=== PATIENT | female | born 1945 | race Caucasian/White ===

== ENCOUNTER → 2017-11-09 14:38 | Outpatient (CLI) | payer MEDICARE, OTHER, SELFPAY ==
--- NOTE | 2017-11-09 | DI.MG.S_ITS ---
UNILATERAL RIGHT DIGITAL DIAGNOSTIC MAMMOGRAM 3D/2D: 11/09/2017 CLINICAL: History of Breast cancer. Comparison is made to exams dated: 10/15/2017 mammogram, 10/15/2016 mammogram, and 09/10/2015 mammogram - [facility]. There are scattered fibroglandular elements in the right breast. There are benign vascular calcifications in the right breast. No significant masses, calcifications, or other findings are seen in the breast. There has been no significant interval change. IMPRESSION: BENIGN There is no mammographic evidence of malignancy. A 1 year screening mammogram is recommended. This exam was interpreted at Station ID: [id number]. NOTE: For mammograms, a report in lay terms will be sent to the patient. Approximately 15% of breast malignancies will not be visualized mammographically. In the management of a palpable breast mass, a negative mammogram must not discourage biopsy of a clinically suspicious lesion. Electronically Signed By: Dot gregory/bimal:11/09/2017 15:06:15 letter sent: Normal Exam ACR BI-RADS Category 2: Benign Finding(s) [id number]
== END ==
PROVIDERS: Family Provider Family Medicine; PCP Family Medicine; Visit Provider Family Medicine
DX: R92.8 Other abnormal and inconclusive findings on diagnostic imaging of breast (principal); Z85.3 Personal history of malignant neoplasm of breast
CPT/HCPCS: G0279

== ENCOUNTER 2018-06-01 05:42 | Inpatient (IN) | payer MEDICARE, SELFPAY ==
[2018-06-01] VITALS (20 sets, daily range): BP systolic 116–168; BP diastolic 55–86; PULSE 78–96; RESP 8–22; TEMP 36.1–37.3; O2SAT 95–100; BMI 19.1; BMI 19.9
--- NOTE | 2018-06-01 | DI.RAD.S_ITS ---
PROCEDURE: XR HIP W PEL IF DONE LT 2V INDICATIONS: LEFT HIP ORIF TECHNIQUE: 2 views of the hip were acquired. COMPARISON: [facility], CR, XR HIP W PEL IF DONE LT 2V, 06/01/2018, 6:04. FINDINGS: Bones: Postsurgical changes compatible with ORIF of intertrochanteric. Dynamic compression screw sideplate is in place. There is anatomic alignment of fracture fragments. Soft tissues: No suspicious soft tissue calcifications or masses. IMPRESSION: Anatomic alignment following ORIF of left hip fracture. Dictated by: Kia Mccain MD, PhD on 06/01/2018 at 18:25 Approved by: Kia Mccain MD, PhD on 06/01/2018 at 18:26
--- NOTE | 2018-06-01 05:58 | DI.RAD.S_ITS ---
PROCEDURE: XR CHEST 1V INDICATIONS: trauma,fall, left wrist and hip pain TECHNIQUE: One view of the chest was acquired. COMPARISON: [facility], , CHEST 2 VIEW, 02/04/2016, 16:45. FINDINGS: Surgical changes and devices: None. Lungs and pleura: No pleural effusions or pneumothorax. Increased pulmonary vascularity is present. Mediastinum: Mediastinal contours appear normal. Heart size is normal. Bones and chest wall: No suspicious bony lesions. Overlying soft tissues appear unremarkable. IMPRESSION: Mild increased pulmonary vascularity suggestive of edema. Dictated by: Eunice Schroeder M.D. on 06/01/2018 at 8:56 Approved by: Eunice Schroeder M.D. on 06/01/2018 at 8:57
--- NOTE | 2018-06-01 05:58 | DI.RAD.S_ITS ---
PROCEDURE: XR HIP W PEL IF DONE LT 2V INDICATIONS: left hip pain, fall TECHNIQUE: AP pelvis with lateral view(s) of the left hip(s). COMPARISON: None. FINDINGS: Bones: There is a mildly displaced comminuted left intertrochanteric femoral fracture. There is no dislocation at the acetabulum. There is a mild compartment of impaction. Soft tissues: The visualized bowel gas pattern is normal. No suspicious soft tissue calcifications. IMPRESSION: Mildly displaced intertrochanteric left femoral fracture. Dictated by: Eunice Schroeder M.D. on 06/01/2018 at 8:57 Approved by: Eunice Schroeder M.D. on 06/01/2018 at 8:58
--- NOTE | 2018-06-01 06:01 | ED_ITS ---
HPI - Fall General Chief Complaint: Fall Stated Complaint: GLF left hip pain Time Seen by Provider: 06/01/18 05:50 Source: patient and family () Mode of arrival: EMS Limitations: no limitations History of Present Illness HPI Narrative: This is a 73-year-old female comes to the emergency department with complaint of left hip pain and wrist pain. Patient got up tonight to walk to the bathroom. She states she has a ?internal tremor? Um and is often very unsteady on her feet. Her states that she has seen specialty doctors for this but has no specific diagnosis. Patient fell on carpeted floor. She denies hitting her head, she denies any neck or back pain. She has pain in her wrist although she states that she does not think it is broken. She also has pain in the left hip with shortening and any movement is very uncomfortable. Patient denies any chest pain or shortness of breath. She denies any nausea or vomiting. No new GI or urinary symptoms. Patient is not on any blood thinners currently. She has a history of hypertension, she had a lumpectomy in her breast and afterwards had what sounds like a recurrent abscess or cyst formation that was drained regularly but they no longer drained she has a large hard lump in that area. Related Data Home Medications Medication Instructions Recorded Confirmed flaxseed oil 2,000 mg PO DAILY #0 07/30/11 06/01/18 bupropion HCl XL 150 mg 24 hr 300 mg PO 0800 90 Days tab 03/18/18 06/01/18 tablet, extended release Calcium 1 tab PO DAILY 06/01/18 06/01/18 Disabled Parking Permit 1 ea MISCELLANEOUS DIRECTED 06/01/18 06/01/18 Vitamin B 100 mg PO DAILY 06/01/18 06/01/18 ascorbic acid (vitamin C) [Vitamin 500 mg PO DAILY 06/01/18 06/01/18 C] cholecalciferol (vitamin D3) 3,000 unit PO DAILY 06/01/18 06/01/18 [Vitamin D3] cholestyramine (with sugar) 4 g PO DAILY 06/01/18 06/01/18 [Questran] clonidine HCl 0.1 mg PO DAILY 06/01/18 06/01/18 furosemide 40 mg PO DAILY 06/01/18 06/01/18 glucosamine sulfate 1,000 mg PO DAILY 06/01/18 06/01/18 lorazepam 0.5 mg PO QID 06/01/18 06/01/18 multivitamin 1 tab PO DAILY 06/01/18 06/01/18 potassium chloride 10 meq PO DAILY 06/01/18 06/01/18 pramipexole 0.375 mg PO TID 06/01/18 06/01/18 vitamin E 400 unit PO DAILY 06/01/18 06/01/18 Previous Rx's Medication Instructions Recorded levothyroxine 100 mcg tablet 100 mcg PO QDAY #90 tab 03/23/18 Allergies Allergy/AdvReac Type Severity Reaction Status Date / Time adhesive Allergy Mild BLISTERING Verified 06/01/18 10:42 codeine [CODEINE] Allergy Mild CRY AND Verified 06/01/18 10:42 SLEEP SSRI Allergy Mild tremors, Uncoded 04/22/18 13:03 anxiety attacks Review of Systems Review of Systems All systems reviewed & are unremarkable except as noted in HPI and below Constitutional Denies chills, Denies fever(s), Reports frequent falls, Denies lethargy, Denies weakness and Denies other (LOC) ENT Ears, Nose, Mouth, and Throat: Denies neck pain Cardiovascular Denies chest pain, Denies syncope, Denies irregular heart rhythm, Denies lightheadedness, Denies palpitations, Denies dyspnea, Denies dyspnea on exertion and Denies orthopnea Respiratory Denies cough, Denies dyspnea, Denies dyspnea on exertion and Denies wheezing Gastrointestinal Gastrointestinal: Denies abdominal pain, Denies change in bowel habits, Denies diarrhea, Denies nausea and Denies vomiting Genitourinary Denies hematuria, Denies flank pain and Denies urinary urgency Musculoskeletal Denies back pain, Reports arthralgias (left hip and left wrist), Reports limited range of motion (hip), Denies neck pain, Denies numbness and Denies tingling Neurologic Denies syncope, Reports frequent falls, Denies focal weakness, Denies numbness, Denies tingling, Reports tremor(s) (chronic internal tremor) and Denies weakness Endocrine Denies palpitations Allergic/Immunologic Denies wheezing Exam Narrative Exam Narrative: GEN: Patient appears in moderate distress. HEAD: No evidence of trauma, no raccoon/Coleman sign. NECK: Nontender, painless range of motion, trachea midline Negative Nexus criteria, there is no mid line tenderness, distracting injury, altered mental status, neuro deficit, recent EtOH. EYES: PERRLA, EOMI ENT: External inspection normal, trachea is midline, TM's are normal no hemotypanum, Nares are clear, no septal hematoma, no dental or oral injury, airway is normal and with normal occlusion, No bony tenderness RESP: Chest is nontender and has symmetric movement, no ecchymosis, breath sounds are normal no crackles, wheezes or rales CVS: Heart sounds are normal, no murmur noted, No JVD. ABG/GI: Nontender, soft, normal bowel sounds, no distention, no organomegaly, pelvic rock is negative. NEURO: Oriented AOx3, neuro is grossly intact, sensation and motor is normal all 4 extremities moving, cranial nerves II through XII are intact, GCS is 15 PSYCH: Normal mood and affect SKIN: Intact, warm and dry, no crepitus and without decubitus BACK: No CVA tenderness, no vertebral tenderness, no step-off's, no crepitus EXT: Atraumatic, right hip is nontender, left hip is painful, patient left leg is internally rotated and shortened, 2+ pulse left food, normal sensation. no pedal edema, normal color and temperature, normal range of motion of extremities with normal tendon exam, 2+ pulses in all four extremities Initial Vital Signs Initial Vital Signs: Vital Signs Temperature 98.4 F 06/01/18 05:49 Pulse Rate 84 06/01/18 05:49 Respiratory Rate 16 06/01/18 05:49 Blood Pressure 127/59 L 06/01/18 05:49 Pulse Oximetry 98 06/01/18 05:49 [facility] Medical History Essential tremor (Acute) Breast cancer (Chronic) Depression (Chronic) Hypertension (Chronic) Hypothyroidism (Chronic) Surgical History Ventral hernia (Resolved) Status post cholecystectomy Status post colectomy Status post dilation and curettage Status post rotator cuff repair Family History Father No problems noted. Mother No problems noted. Social History household members: spouse Smoking Status: Current every day smoker Scores GCS Platter coma scale eye opening: Spontaneous Platter coma scale verbal response: Orientated [place] coma scale motor response: Obey commands [place] coma scale total score: 15 Course Orders Ordered: Acetaminophen (Tylenol) 975 mg PO TID [facility] Last Admin: 06/03/18 09:01 Dose: 975 mg Admin: 06/02/18 20:08 Dose: 975 mg Admin: 06/02/18 14:55 Dose: 975 mg Admin: 06/02/18 09:09 Dose: 975 mg Admin: 06/01/18 20:06 Dose: 975 mg Bupropion HCl (Wellbutrin Xl) 300 mg PO 0800 [facility] Last Admin: 06/03/18 09:02 Dose: 300 mg Admin: 06/02/18 05:19 Dose: 300 mg Docusate Sodium (Colace) 100 mg PO BID [facility] Last Admin: 06/03/18 09:02 Dose: 100 mg Admin: 06/02/18 20:08 Dose: 100 mg Admin: 06/02/18 09:06 Dose: 100 mg Admin: 06/01/18 20:08 Dose: 100 mg Admin: 06/01/18 10:02 Dose: Enoxaparin Sodium (Lovenox) 40 mg SUBCUT DAILY [facility] Last Admin: 06/03/18 09:01 Dose: 40 mg Admin: 06/02/18 09:05 Dose: 40 mg Levothyroxine Sodium (Synthroid) 100 mcg PO 0600 [facility] Last Admin: 06/03/18 05:54 Dose: 100 mcg Admin: 06/02/18 05:17 Dose: 100 mcg Admin: 06/01/18 10:02 Dose: Lorazepam (Ativan) 0.5 mg PO TID [facility] Last Admin: 06/03/18 09:04 Dose: 0.5 mg Admin: 06/02/18 20:09 Dose: 0.5 mg Admin: 06/02/18 14:56 Dose: 0.5 mg Admin: 06/02/18 09:05 Dose: 0.5 mg Lorazepam (Ativan) 0.5 mg PO DAILY PRN PRN Reason: anxiety Naloxone HCl (Narcan) 0.2 mg IV Q2MIN PRN PRN Reason: Opiate Reversal Ondansetron HCl (Zofran) 4 mg IV Q8HR PRN PRN Reason: Nausea And Vomiting Oxycodone HCl (Percolone) 5 mg PO Q3HR PRN PRN Reason: Pain, Moderate (4-6) Last Admin: 06/03/18 09:06 Dose: 5 mg Admin: 06/03/18 00:13 Dose: 5 mg Admin: 06/02/18 20:09 Dose: 5 mg Admin: 06/02/18 16:01 Dose: 5 mg Admin: 06/02/18 12:46 Dose: 5 mg Admin: 06/02/18 09:09 Dose: 5 mg Admin: 06/02/18 04:37 Dose: 5 mg Admin: 06/01/18 23:02 Dose: 5 mg Admin: 06/01/18 19:10 Dose: 5 mg Oxycodone HCl (Percolone) 10 mg PO Q3HR PRN PRN Reason: Pain, Severe (7-10) Last Admin: 06/03/18 05:52 Dose: 10 mg Polyethylene Glycol (Miralax) 17 gm PO DAILY PRN PRN Reason: Constipation Pramipexole Dihydrochloride (Mirapex) 0.375 mg PO TID [facility] Last Admin: 06/03/18 09:02 Dose: 0.375 mg Admin: 06/02/18 20:08 Dose: 0.375 mg Admin: 06/02/18 14:56 Dose: 0.375 mg Admin: 06/02/18 09:05 Dose: 0.375 mg Admin: 06/01/18 20:06 Dose: 0.375 mg Admin: 06/01/18 14:55 Dose: Sodium Chloride (Normal Saline 0.9% Flush) 10 ml IV PRN PRN PRN Reason: Flush Sodium Chloride (Normal Saline 0.9% Flush) 10 ml IV BID TRAVIS Discontinued Medications Acetaminophen (Tylenol) 650 mg PO Q6HR PRN PRN Reason: As Needed for Fever/Mild Pain Hydrocodone Bitart/Acetaminophen ([place] 5/325) 2 tab PO Q4HR PRN PRN Reason: Pain, Severe (7-10) Bupivacaine HCl/Epinephrine Bitart (Sensorcaine 0.5% W/ Epi (Pf)) 30 ml INJ NOW ONE Stop: 06/01/18 18:05 Last Admin: 06/01/18 18:05 Dose: 20 ml Enoxaparin Sodium (Lovenox) 40 mg SUBCUT DAILY [facility] Last Admin: 06/01/18 10:43 Dose: Fentanyl (Sublimaze) 50 mcg IV Q5MIN PRN PRN Reason: Pain, Moderate (4-6) Hydromorphone HCl (Dilaudid) 0.5 mg IV NOW ONE Stop: 06/01/18 05:59 Last Admin: 06/01/18 06:21 Dose: 0.5 mg Hydromorphone HCl (Dilaudid) 0.5 mg IV NOW ONE Stop: 06/01/18 07:28 Last Admin: 06/01/18 07:32 Dose: 0.5 mg Hydromorphone HCl (Dilaudid) 0.5 mg IV Q6HR PRN PRN Reason: Pain, Moderate (4-6) Last Admin: 06/01/18 09:12 Dose: 0.5 mg Hydromorphone HCl (Dilaudid) 0.5 mg IV Q3HR PRN PRN Reason: Pain, Moderate (4-6) Last Admin: 06/01/18 15:34 Dose: 0.5 mg Admin: 06/01/18 12:28 Dose: 0.5 mg Hydromorphone HCl (Dilaudid) 0.25 mg IV Q5MIN PRN PRN Reason: Pain, Mild (1-3) Dextrose/Sodium Chloride (Dextrose 5%-0.45% Ns) 1,000 mls @ 100 mls/hr IV CONT TRAVIS Last Infusion: 06/01/18 16:07 Dose: 0 mls/hr Admin: 06/01/18 09:14 Dose: 100 mls/hr Cefazolin Sodium/Dextrose (Ancef) 1 gm in 50 mls @ 200 mls/hr IV INTRA-OP ONE Stop: 06/01/18 14:25 Last Infusion: 06/01/18 17:35 Dose: 0 mls/hr Admin: 06/01/18 17:30 Dose: 200 mls/hr Lactated Ringer's (Lactated Ringers) 1,000 mls @ 42 mls/hr IV CONT TRAVIS Last Admin: 06/01/18 18:46 Dose: 42 mls/hr Infusion: 06/01/18 18:45 Dose: 0 mls/hr Admin: 06/01/18 17:00 Dose: 42 mls/hr Cefazolin Sodium 1 gm/ Sodium (Chloride) 100 mls @ 200 mls/hr IV NOW ONE Stop: 06/01/18 17:48 Last Admin: 06/01/18 17:55 Dose: Not Given Lactated Ringer's (Lactated Ringers) 1,000 mls @ 125 mls/hr IV CONT TRAVIS Last Infusion: 06/03/18 08:09 Dose: 125 mls/hr Infusion: 06/02/18 05:00 Dose: 0 mls/hr Admin: 06/02/18 04:30 Dose: 125 mls/hr Admin: 06/01/18 19:09 Dose: Cefazolin Sodium/Dextrose (Ancef) 2 gm in 100 mls @ 200 mls/hr IV Q8H [facility] Stop: 06/02/18 10:29 Last Infusion: 06/02/18 10:34 Dose: 0 mls/hr Admin: 06/02/18 09:05 Dose: 200 mls/hr Infusion: 06/02/18 03:10 Dose: 200 mls/hr Admin: 06/02/18 01:59 Dose: 200 mls/hr Lorazepam (Ativan) 0.5 mg PO Q6HR [facility] Last Admin: 06/01/18 12:23 Dose: Lorazepam (Ativan) 0.5 mg PO Q6HR PRN PRN Reason: Anxiety Lorazepam (Ativan) 0.5 mg IV Q6HR PRN PRN Reason: Anxiety Last Admin: 06/02/18 00:10 Dose: 0.5 mg Admin: 06/01/18 12:41 Dose: 0.5 mg Lorazepam (Ativan) 0.5 mg PO Q6HR PRN PRN Reason: Anxiety Last Admin: 06/02/18 05:19 Dose: 0.5 mg Admin: 06/01/18 19:08 Dose: 0.5 mg Metoclopramide HCl (Reglan) 10 mg IV NOW PRN PRN Reason: Nausea And Vomiting Ondansetron HCl (Zofran) 4 mg IV NOW PRN PRN Reason: Nausea And Vomiting Vital Signs - 8 hr 06/03/18 05:30 06/03/18 08:00 Temperature 96.7 F L 98.9 F Pulse Rate 84 90 Respiratory Rate 16 17 Blood Pressure 114/59 L 153/70 H Pulse Oximetry 99 98 MDM - Fall Lab Data Attestation: I reviewed the patient's lab results. Result diagrams: 06/02/18 04:42 06/01/18 06:00 Lab Results 06/01/18 06/01/18 06/01/18 Range/Units 06:00 06:00 06:00 WBC 5.9 (4.5-11.0) X10^3/uL RBC 3.83 L (4.0-5.2) X10^6/uL Hgb 12.8 (12.0-16.0) g/dL Hct 36.8 (36-46) % MCV 96.1 (80-100) fL MCH 33.4 (26-34) PG MCHC 34.8 (30-36) % RDW 11.9 (11.6-14.8) % Plt Count 268 (150-400) X10^3/uL Neut % (Auto) 63.0 (50-75) % Lymph % (Auto) 25.0 (25-40) % [place] % (Auto) 7.9 (3-14) % Eos % (Auto) 3.1 (2-4) % Baso % (Auto) 1.0 (0-2) % Neut # (Auto) 3700 (0226-5451) /uL PT 11.9 (10.1-12.7) SECONDS INR 1.0 (0.9-1.3) APTT 28 (26.4-36.2) SECONDS Sodium 139 (137-145) mmol/L Potassium 4.1 (3.4-5.1) mmol/L Chloride 103 (98-107) mmol/L Carbon Dioxide 26 (22-32) mmol/L BUN 17 (7-17) mg/dL Creatinine 0.60 (0.52-1.04) mg/dL Estimated GFR > 60.0 (>60) mL/min BUN/Creatinine Ratio 28.3 H (6-22) Glucose 96 (80-110) mg/dL Calcium 9.1 (8.4-10.2) mg/dL Total Bilirubin 0.4 (0.2-1.3) mg/dL AST 37 H (14-36) IU/L ALT 31 (9-52) IU/L Alkaline Phosphatase 79 (38-126) U/L Total Protein 6.8 (6.3-8.2) g/dL Albumin 3.8 (3.5-5.0) g/dL Globulin 3.0 (1.7-4.1) g/dL Albumin/Globulin Ratio 1.3 (1.0-2.8) Urine Color Urine Appearance Urine pH (4.5-8.0) Ur Specific [place] (1.000-1.035) Urine Protein (Negative) Urine Glucose (UA) (Normal) g/dL Urine Ketones (NEGATIVE) Urine Occult Blood (Negative) Urine Nitrate (Negative) Urine Bilirubin (NEGATIVE) Urine Urobilinogen (0.2) E.U./dL Ur Leukocyte Esterase (NEGATIVE) Urine RBC (0-5/HPF) Urine WBC (0-5/HPF) Ur Squamous Epith Cells Urine Bacteria (None) Ur Culture Indicated? Micro UA Comment Nasal Screen MRSA (PCR) (Negative) Blood Type Antibody Screen 06/01/18 06/01/18 06/01/18 Range/Units 06:00 09:21 12:28 WBC (4.5-11.0) X10^3/uL RBC (4.0-5.2) X10^6/uL Hgb (12.0-16.0) g/dL Hct (36-46) % MCV (80-100) fL MCH (26-34) PG MCHC (30-36) % RDW (11.6-14.8) % Plt Count (150-400) X10^3/uL Neut % (Auto) (50-75) % Lymph % (Auto) (25-40) % [place] % (Auto) (3-14) % Eos % (Auto) (2-4) % Baso % (Auto) (0-2) % Neut # (Auto) (2830-6019) /uL PT (10.1-12.7) SECONDS INR (0.9-1.3) APTT (26.4-36.2) SECONDS Sodium (137-145) mmol/L Potassium (3.4-5.1) mmol/L Chloride (98-107) mmol/L Carbon Dioxide (22-32) mmol/L BUN (7-17) mg/dL Creatinine (0.52-1.04) mg/dL Estimated GFR (>60) mL/min BUN/Creatinine Ratio (6-22) Glucose (80-110) mg/dL Calcium (8.4-10.2) mg/dL Total Bilirubin (0.2-1.3) mg/dL AST (14-36) IU/L ALT (9-52) IU/L Alkaline Phosphatase (38-126) U/L Total Protein (6.3-8.2) g/dL Albumin (3.5-5.0) g/dL Globulin (1.7-4.1) g/dL Albumin/Globulin Ratio (1.0-2.8) Urine Color Yellow Urine Appearance Clear Urine pH 6.0 (4.5-8.0) Ur Specific [place] 1.020 (1.000-1.035) Urine Protein Negative (Negative) Urine Glucose (UA) Negative (Normal) g/dL Urine Ketones Negative (NEGATIVE) Urine Occult Blood Negative (Negative) Urine Nitrate Negative (Negative) Urine Bilirubin Negative (NEGATIVE) Urine Urobilinogen 0.2 (0.2) E.U./dL Ur Leukocyte Esterase Negative (NEGATIVE) Urine RBC None seen (0-5/HPF) Urine WBC 0-1/hpf (0-5/HPF) Ur Squamous Epith Cells 0-1 /hpf Urine Bacteria None seen (None) Ur Culture Indicated? Cult not indicated Micro UA Comment Not Reportable Nasal Screen MRSA (PCR) Negative for mrsa (Negative) Blood Type A Positive Antibody Screen Negative 06/02/18 Range/Units 04:42 WBC (4.5-11.0) X10^3/uL RBC (4.0-5.2) X10^6/uL Hgb 12.6 (12.0-16.0) g/dL Hct 37.2 (36-46) % MCV (80-100) fL MCH (26-34) PG MCHC (30-36) % RDW (11.6-14.8) % Plt Count (150-400) X10^3/uL Neut % (Auto) (50-75) % Lymph % (Auto) (25-40) % [place] % (Auto) (3-14) % Eos % (Auto) (2-4) % Baso % (Auto) (0-2) % Neut # (Auto) (8066-9312) /uL PT (10.1-12.7) SECONDS INR (0.9-1.3) APTT (26.4-36.2) SECONDS Sodium (137-145) mmol/L Potassium (3.4-5.1) mmol/L Chloride (98-107) mmol/L Carbon Dioxide (22-32) mmol/L BUN (7-17) mg/dL Creatinine (0.52-1.04) mg/dL Estimated GFR (>60) mL/min BUN/Creatinine Ratio (6-22) Glucose (80-110) mg/dL Calcium (8.4-10.2) mg/dL Total Bilirubin (0.2-1.3) mg/dL AST (14-36) IU/L ALT (9-52) IU/L Alkaline Phosphatase (38-126) U/L Total Protein (6.3-8.2) g/dL Albumin (3.5-5.0) g/dL Globulin (1.7-4.1) g/dL Albumin/Globulin Ratio (1.0-2.8) Urine Color Urine Appearance Urine pH (4.5-8.0) Ur Specific [place] (1.000-1.035) Urine Protein (Negative) Urine Glucose (UA) (Normal) g/dL Urine Ketones (NEGATIVE) Urine Occult Blood (Negative) Urine Nitrate (Negative) Urine Bilirubin (NEGATIVE) Urine Urobilinogen (0.2) E.U./dL Ur Leukocyte Esterase (NEGATIVE) Urine RBC (0-5/HPF) Urine WBC (0-5/HPF) Ur Squamous Epith Cells Urine Bacteria (None) Ur Culture Indicated? Micro UA Comment Nasal Screen MRSA (PCR) (Negative) Blood Type Antibody Screen Point of Care Testing Test Results Not applicable Imaging Data Chest x-ray: Attestation: I personally reviewed and interpreted this imaging study as follows: My impression: nap L hip/pelvis: Attestation: I personally reviewed and interpreted this imaging study as follows: My impression: left hip fracture, no dislocation left wrist: My impression: distal radial wrist fracture, mildly displaced. ECG Data Attestation: I personally reviewed and interpreted this ECG as follows: Interpretation: Sinus rhythem rate of 82, pr of 154, qrs of 94, QTc 409. No ST elevation/Depression. MDM Narrative Medical decision making narrative: Spoke with Dr. Banda, he will see patient plan for OR. Spoke with Dr. Linares who is covering for Dr. Huerta they will accept for admission for medical management. Patient placed in the splint for her left wrist. Patient and family updated. Discharge Plan Departure Patient Disposition: Admitted As Inpatient Clinical Impression: Closed fracture of left hip, Fracture of left wrist Discharge Date/Time: 06/01/18 09:05 Interventions: ED Discharge Assessment Last Done: 06/01/18 09:05 Admit Date/Time: 06/01/18 07:29 Admit Provider: Junior Huerta
--- NOTE | 2018-06-01 06:01 | DI.RAD.S_ITS ---
PROCEDURE: XR WRIST LT MIN 3V INDICATIONS: fall, wrist pain, TECHNIQUE: 4 views of the wrist were acquired. COMPARISON: None. FINDINGS: Bones: There is ill-defined nondisplaced vertical lucency within the distal radius with questionable extension to the articular surface. No suspicious bony lesions. Prominent radiocarpal narrowing and radial osteophytes are present. First [facility] degenerative change is moderate in severity. Scaphoid view: No visualized fracture. Soft tissues: No suspicious soft tissue calcifications. IMPRESSION: Ill-defined vertical lucency within the distal radius suspicious for nondisplaced fracture. Superimposed degenerative changes are present. Recommend interval followup in 7-10 days for further evaluation. Dictated by: Eunice Schroeder M.D. on 06/01/2018 at 9:08 Approved by: Eunice Schroeder M.D. on 06/01/2018 at 9:10
[2018-06-01] MEDS: HYDROMORPHONE 1 MG INJ 0.5 MG IV ×5 (06:21→15:34)
[2018-06-01 06:27] LABS: Add Manual Diff / Slide Review NO; Eosinophils Percent Auto 3.1 % (2-4); Hematocrit 36.8 % (36-46); Hemoglobin 12.8 g/dL (12.0-16.0); Mean Corpuscular HGB Conc 34.8 % (30-36); Mean Corpuscular Hemoglobin 33.4 PG (26-34); Mean Corpuscular Volume 96.1 fL (80-100); Monocytes Percent Auto 7.9 % (3-14); Neutrophils Absolute Auto 3700 /uL (3000-5900); Platelet Count 268 X10^3/uL (150-400); Red Blood Cell Count 3.83 X10^6/uL (4.0-5.2); Red Cell Distribution Width 11.9 % (11.6-14.8); White Blood Cell Count 5.9 X10^3/uL (4.5-11.0)
[2018-06-01 06:33] LABS: Prothrombin Time 11.9 SECONDS (10.1-12.7)
[2018-06-01 06:35] LABS: PTT Partial Thromboplastin Tim 28 SECONDS (26.4-36.2)
[2018-06-01 06:36] LABS: Alanine Aminotransferase 31 IU/L (9-52); Albumin 3.8 g/dL (3.5-5.0); Albumin Globulin Ratio 1.3 (1.0-2.8); Alkaline Phosphatase 79 U/L (38-126); Aspartate Aminotransferase 37 IU/L (14-36); BUN Creatinine Ratio 28.3 (6-22); Bilirubin Total 0.4 mg/dL (0.2-1.3); Blood Urea Nitrogen 17 mg/dL (7-17); Calcium 9.1 mg/dL (8.4-10.2); Carbon Dioxide 26 mmol/L (22-32); Chloride 103 mmol/L (98-107); Estimated Glomerular Filt Rate > 60.0 mL/min (>60); Glucose 96 mg/dL (80-110); HEMOLYSIS < 15 (0-50); Potassium 4.1 mmol/L (3.4-5.1); Sodium 139 mmol/L (137-145); Total Protein 6.8 g/dL (6.3-8.2)
[2018-06-01] MEDS: DEXTROSE 5%-0.45% NS 1,000 ML 100 ML IV (09:14)
--- NOTE | 2018-06-01 09:16 | OT.IP.TRT ---
Surgery Performed Operation Date: 06/01/18 17:00 <No data on this case meets the specified criteria> Occupational Therapy Treatment Note M3 OT- IP Subjective and Pain Start: 06/01/18 09:15 Freq: Status: Active Protocol: Document 06/01/18 09:15 [facility] (Rec: 06/01/18 09:16 [facility] [id number]) OT- Subjective Occupational Therapy Visit Type Type Administrative Note Notes Pt to have surgery today, therefore to do OT eval tomorrow.
--- NOTE | 2018-06-01 10:13 | P.HP_ITS ---
History of Present Illness Date Patient Seen: 06/01/18 Time Patient Seen: 08:20 Chief complaint: GLF left hip pain Narrative: Patient seen and evaluated in the emergency department. at the bedside. She has good historian. She is somewhat tearful and crying. Has she said I do not need this. She said she previously has not had any falls over the last few weeks has been doing okay. She has a history of anxiety. She says she generally gets up in the middle the night to go to the bathroom. Last night she got up and she just fell. There is no reason why she fell other that was dark in that she shakes sometimes during the night. She did not pass out. She did not have any chest pain or shortness of breath. As she fell early this morning she was unable to get back up and then was brought into the emergency department. Currently she is complaining of pain in her pelvis and hip area. She is also complaining of pain in her wrist. Symptoms have been since her fall. She is not complaining of lightheaded dizziness. No chest pain or palpitations or shortness of breath. She has not had any recent problems with heart pain shortness of breath or lower extremity swelling or edema. She in the past states she has tolerated surgery well. She has been struggling lately with tremors her mood with significant anxiety. She lives at home with her Bakari has a pretty good support system. Patient History Medical History Essential tremor (Acute) Breast cancer (Chronic) Depression (Chronic) Hypertension (Chronic) Hypothyroidism (Chronic) Surgical History Ventral hernia (Resolved) Status post cholecystectomy Status post colectomy Status post dilation and curettage Status post rotator cuff repair Family & Social History Social History: household members spouse Prior Living Arrangements House Safety & Behavioral: Feels Safe in Current Yes Environment Been Physically Hurt or No Threatened By a Person Suicidal Ideation Description Vague Suicide Plan Description No Plan Tobacco & Substance use: Tobacco type cigarettes Smoking Status Current every day smoker alcohol intake frequency 0-2 drinks per day Substance Use Type does not use Meds Home Medications Medication Instructions Recorded Confirmed Type flaxseed oil 2,000 mg PO DAILY #0 07/30/11 06/01/18 History bupropion HCl XL 150 mg 24 hr 300 mg PO 0800 90 Days tab 03/18/18 06/01/18 History tablet, extended release levothyroxine 100 mcg tablet 100 mcg PO QDAY #90 tab 03/23/18 06/01/18 Rx Calcium 1 tab PO DAILY 06/01/18 06/01/18 History Disabled Parking Permit 1 ea MISCELLANEOUS DIRECTED 06/01/18 06/01/18 History Vitamin B 100 mg PO DAILY 06/01/18 06/01/18 History ascorbic acid (vitamin C) [Vitamin 500 mg PO DAILY 06/01/18 06/01/18 History C] cholecalciferol (vitamin D3) 3,000 unit PO DAILY 06/01/18 06/01/18 History [Vitamin D3] cholestyramine (with sugar) 4 g PO DAILY 06/01/18 06/01/18 History [Questran] clonidine HCl 0.1 mg PO DAILY 06/01/18 06/01/18 History furosemide 40 mg PO DAILY 06/01/18 06/01/18 History glucosamine sulfate 1,000 mg PO DAILY 06/01/18 06/01/18 History lorazepam 0.5 mg PO QID 06/01/18 06/01/18 History multivitamin 1 tab PO DAILY 06/01/18 06/01/18 History potassium chloride 10 meq PO DAILY 06/01/18 06/01/18 History pramipexole 0.375 mg PO TID 06/01/18 06/01/18 History vitamin E 400 unit PO DAILY 06/01/18 06/01/18 History Allergies Allergy/AdvReac Type Severity Reaction Status Date / Time adhesive Allergy Mild BLISTERING Verified 06/01/18 10:42 codeine [CODEINE] Allergy Mild CRY AND Verified 06/01/18 10:42 SLEEP SSRI Allergy Mild tremors, Uncoded 04/22/18 13:03 anxiety attacks Exam Vital Signs (past 8 hours): - 06/01/18 05:49 06/01/18 06:26 06/01/18 07:22 Temperature 98.4 F 98.4 F Pulse Rate 84 84 84 Respiratory Rate 16 16 14 Blood Pressure 127/59 L 127/59 L Blood Pressure [Right Arm] 119/59 L Pulse Oximetry 98 98 99 06/01/18 07:30 06/01/18 08:00 06/01/18 08:36 Temperature Pulse Rate 89 88 84 Respiratory Rate 21 8 L 11 L Blood Pressure Blood Pressure [Right Arm] 129/55 L 131/63 116/56 L Pulse Oximetry 100 95 96 06/01/18 10:00 Temperature 98.7 F Pulse Rate 78 Respiratory Rate 19 Blood Pressure 130/66 Blood Pressure [Right Arm] Pulse Oximetry 95 Oxygen Delivery Method Room Air Oxygen Flow Rate 0 Narrative Exam Narrative: Gen.: Alert good historian somewhat tearful anxious and weepy HEENT: Pupils equal round and reactive or mucosa is dry neck is supple Cardio: S1-S2 regular rate rhythm slight systolic murmur Respiratory: Normal respiratory effort no wheezes or crackles Abdomen: Abdomen soft nontender no rebound no guarding Extremities: Good distal pulses poor. Warm dry perfused. Left hip pain. Wrist pain. With swelling. Neurologic: Grossly intact. Objective Imaging xray: Radiologist's impression: [address] [address] XRay Report Signed Patient: Georgie Davison MR#: [id number] : 1945 Acct:[id number] Age/Sex: 73 / F Date of Service: 06/01/18 Loc: ICU 104-1 Accession Number: [id number] Procedure: XR wrist LT min 3V Ordering Provider: Silvia White D.O. PROCEDURE: XR WRIST LT MIN 3V INDICATIONS: fall, wrist pain, TECHNIQUE: 4 views of the wrist were acquired. COMPARISON: None. FINDINGS: Bones: There is ill-defined nondisplaced vertical lucency within the distal radius with questionable extension to the articular surface. No suspicious bony lesions. Prominent radiocarpal narrowing and radial osteophytes are present. First CMC degenerative change is moderate in severity. Scaphoid view: No visualized fracture. Soft tissues: No suspicious soft tissue calcifications. IMPRESSION: Ill-defined vertical lucency within the distal radius suspicious for nondisplaced fracture. Superimposed degenerative changes are present. Recommend interval followup in 7-10 days for further evaluation. PROCEDURE: XR HIP W PEL IF DONE LT 2V INDICATIONS: left hip pain, fall TECHNIQUE: AP pelvis with lateral view(s) of the left hip(s). COMPARISON: None. FINDINGS: Bones: There is a mildly displaced comminuted left intertrochanteric femoral fracture. There is no dislocation at the acetabulum. There is a mild compartment of impaction. Soft tissues: The visualized bowel gas pattern is normal. No suspicious soft tissue calcifications. IMPRESSION: Mildly displaced intertrochanteric left femoral fracture. INDICATIONS: trauma,fall, left wrist and hip pain TECHNIQUE: One view of the chest was acquired. COMPARISON: [facility], , CHEST 2 VIEW, 02/04/2016, 16:45. FINDINGS: Surgical changes and devices: None. Lungs and pleura: No pleural effusions or pneumothorax. Increased pulmonary vascularity is present. Mediastinum: Mediastinal contours appear normal. Heart size is normal. Bones and chest wall: No suspicious bony lesions. Overlying soft tissues appear unremarkable. IMPRESSION: Mild increased pulmonary vascularity suggestive of edema. ECG: Normal sinus rhythm. No acute ST or T-wave changes. Labs Result Diagrams: 06/01/18 06:00 06/01/18 06:00 Labs: Laboratory Results - last 24 hr 06/01/18 06/01/18 06/01/18 06:00 06:00 06:00 WBC 5.9 RBC 3.83 L Hgb 12.8 Hct 36.8 MCV 96.1 MCH 33.4 MCHC 34.8 RDW 11.9 Plt Count 268 Neut % (Auto) 63.0 Lymph % (Auto) 25.0 [place] % (Auto) 7.9 Eos % (Auto) 3.1 Baso % (Auto) 1.0 Neut # (Auto) 3700 PT 11.9 INR 1.0 APTT 28 Sodium 139 Potassium 4.1 Chloride 103 Carbon Dioxide 26 BUN 17 Creatinine 0.60 Estimated GFR > 60.0 BUN/Creatinine Ratio 28.3 H Glucose 96 Calcium 9.1 Total Bilirubin 0.4 AST 37 H ALT 31 Alkaline Phosphatase 79 Total Protein 6.8 Albumin 3.8 Globulin 3.0 Albumin/Globulin Ratio 1.3 Blood Type Antibody Screen 06/01/18 06:00 WBC RBC Hgb Hct MCV MCH MCHC RDW Plt Count Neut % (Auto) Lymph % (Auto) [place] % (Auto) Eos % (Auto) Baso % (Auto) Neut # (Auto) PT INR APTT Sodium Potassium Chloride Carbon Dioxide BUN Creatinine Estimated GFR BUN/Creatinine Ratio Glucose Calcium Total Bilirubin AST ALT Alkaline Phosphatase Total Protein Albumin Globulin Albumin/Globulin Ratio Blood Type A Positive Antibody Screen Negative Assessment & Plan Plan: Assessment/Plan Narrative: Left intratrochanteric hip fracture. Patient had a fall last night while daily out of bed. No associated symptoms of syncope chest pain shortness of breath associated with the fall. The x-ray was reviewed and orthopedic surgery has been notified. Patient will need surgical correction of hip fracture. Left wrist fracture. Wrist brace was placed in the emergency department. This will also be followed orthopedic Nancy. Preoperative clearance. Patient has no known history of coronary artery disease remote history of smoking. No active pulmonary problems. She has no current chest pain or recently. She ambulates well no recent shortness of breath lower extremity edema or heart failure. She has had no recent neurological activity such as cerebrovascular accidents or strokes. On review her blood work today she has normal blood count she is not anemic normal coagulation factors normal kidney function glucose and platelets. Patient chest x-ray is normal as well. EKG was done which showed normal sinus rhythm. Patient will be cleared for upcoming hip surgery. She is not on a beta-cydney at this time. And will not necessarily need. Depression anxiety. Patient suffers from this. Will place her back on her antidepressant medication and her arm into the lorazepam. She is quite fearful today and anxious. Tremor essential. She has been working with a neurologist with that. She is currently on Mirapex will hold this while she is in the hospital and restart as needed. Hypothyroidism we will continue with his thyroid replacement. Disposition plan. Patient meets inpatient criteria. She will be preoperatively cleared for her upcoming hip surgery and will be in the hospital greater than 2 midnights. Quality VTE Deep Vein Thrombosis/Pulmonary Embolism Present on Admission: No
[2018-06-01 12:31] LABS: Bacteria Urine None Seen; RBC Urine None Seen (0-5/HPF)
[2018-06-01 12:35] LABS: Appearance Urine UA CLEAR; Bilirubin Urine UA NEGATIVE (NEGATIVE); Color Urine UA YELLOW; Glucose Urine UA NEGATIVE (Normal); Ketones Urine UA NEGATIVE (NEGATIVE); Leukocyte Esterase Urine UA NEGATIVE (NEGATIVE); Nitrite Urine UA NEGATIVE (Negative); Occult Blood Urine UA NEGATIVE (Negative); Protein Urine UA NEGATIVE (Negative); Urobilinogen Urine UA 0.2 E.U./dL (0.2)
[2018-06-01] MEDS: LORazepam 2 MG/ML SYRINGE 0.5 MG IV (12:41)
[2018-06-01 12:48] LABS: Culture Indicated Urine Cult Not Indicated; Squamous Epithelial Cell Urine 0-1 /HPF; WBC Urine 0-1/HPF (0-5/HPF)
--- NOTE | 2018-06-01 14:00 | PC.ADMIT ---
Admission Note: Patient arrived to room 104 from ER via stretcher at 0900. Transferred via slider board to bed, pt crying out in pain during transfer. Dilaudid IV given for pain control and assisted to comfortable position. Ativan administered IV for pt report of anxiety (takes Ativan PO at home). Oriented to room and to call light/tv/bed controls. Call light within reach. Pulses palpable to BLEs, LLE shortened. RA with sats 96%. VSS. Grider catheter in place and draining clear yellow urine. NPO. Surgery pending for this afternoon. The patient,Georgie Davison,73 y/o, was given written information regarding hospital policies, unit procedures and contact persons. Patient's smoking status: Current every day smoker. Vital Signs - 8 hr 06/01/18 06:26 06/01/18 07:22 06/01/18 07:30 Temperature 98.4 F Pulse Rate 84 84 89 Respiratory Rate 16 14 21 Blood Pressure 127/59 L Blood Pressure [Right Arm] 119/59 L 129/55 L Pulse Oximetry 98 99 100 06/01/18 08:00 06/01/18 08:36 06/01/18 10:00 Temperature 98.7 F Pulse Rate 88 84 78 Respiratory Rate 8 L 11 L 19 Blood Pressure 130/66 Blood Pressure [Right Arm] 131/63 116/56 L Pulse Oximetry 95 96 95 06/01/18 11:02 06/01/18 11:45 Temperature 99.1 F Pulse Rate 85 Respiratory Rate 15 Blood Pressure 137/77 Blood Pressure [Right Arm] Pulse Oximetry 96 97
--- NOTE | 2018-06-01 14:15 | P.CONS_ITS ---
History of Present Illness Date Patient Seen: 06/01/18 Time Patient Seen: 14:00 Chief complaint: GLF left hip pain Reason for consult: Left intertrochanteric hip fracture Requesting provider: Silvia White Narrative: The patient is a 73-year-old woman with a history of ?internal tremor ? who is unsteady as a result. She fell injuring her left hip and was seen early this morning at [facility]. Radiographs revealed a displaced intertrochanteric hip fracture. Orthopedic consultation has been obtained for definitive management of this fracture. [facility] Medical History Essential tremor (Acute) Breast cancer (Chronic) Depression (Chronic) Hypertension (Chronic) Hypothyroidism (Chronic) Surgical History Ventral hernia (Resolved) Status post cholecystectomy Status post colectomy Status post dilation and curettage Status post rotator cuff repair Family History Father No problems noted. Mother No problems noted. Social History household members: spouse Smoking Status: Current every day smoker Meds Home Medications Medication Instructions Recorded Confirmed Type flaxseed oil 2,000 mg PO DAILY #0 07/30/11 06/01/18 History bupropion HCl XL 150 mg 24 hr 300 mg PO 0800 90 Days tab 03/18/18 06/01/18 History tablet, extended release levothyroxine 100 mcg tablet 100 mcg PO QDAY #90 tab 03/23/18 06/01/18 Rx Calcium 1 tab PO DAILY 06/01/18 06/01/18 History Disabled Parking Permit 1 ea MISCELLANEOUS DIRECTED 06/01/18 06/01/18 History Vitamin B 100 mg PO DAILY 06/01/18 06/01/18 History ascorbic acid (vitamin C) [Vitamin 500 mg PO DAILY 06/01/18 06/01/18 History C] cholecalciferol (vitamin D3) 3,000 unit PO DAILY 06/01/18 06/01/18 History [Vitamin D3] cholestyramine (with sugar) 4 g PO DAILY 06/01/18 06/01/18 History [Questran] clonidine HCl 0.1 mg PO DAILY 06/01/18 06/01/18 History furosemide 40 mg PO DAILY 06/01/18 06/01/18 History glucosamine sulfate 1,000 mg PO DAILY 06/01/18 06/01/18 History lorazepam 0.5 mg PO QID 06/01/18 06/01/18 History multivitamin 1 tab PO DAILY 06/01/18 06/01/18 History potassium chloride 10 meq PO DAILY 06/01/18 06/01/18 History pramipexole 0.375 mg PO TID 06/01/18 06/01/18 History vitamin E 400 unit PO DAILY 06/01/18 06/01/18 History Allergies Allergy/AdvReac Type Severity Reaction Status Date / Time adhesive Allergy Mild BLISTERING Verified 06/01/18 10:42 codeine [CODEINE] Allergy Mild CRY AND Verified 06/01/18 10:42 SLEEP SSRI Allergy Mild tremors, Uncoded 04/22/18 13:03 anxiety attacks Review of Systems Constitutional Constitutional: Denies chills and Denies fever(s) Eyes Eyes: Denies change in vision Cardiovascular Cardiovascular: Denies chest pain and Denies shortness of breath Respiratory Respiratory: Denies dyspnea Gastrointestinal Gastrointestinal: Denies change in bowel habits Genitourinary Genitourinary: Denies hematuria Musculoskeletal Musculoskeletal: Reports deformity Comments: Hip pain Neurologic Neurologic: Reports tremor(s) Psychiatric Psychiatric: Reports anxiety Exam Vital Signs (past 8 hours): - 06/01/18 06:26 06/01/18 07:22 06/01/18 07:30 Temperature 98.4 F Pulse Rate 84 84 89 Respiratory Rate 16 14 21 Blood Pressure 127/59 L Blood Pressure [Right Arm] 119/59 L 129/55 L Pulse Oximetry 98 99 100 06/01/18 08:00 06/01/18 08:36 06/01/18 10:00 Temperature 98.7 F Pulse Rate 88 84 78 Respiratory Rate 8 L 11 L 19 Blood Pressure 130/66 Blood Pressure [Right Arm] 131/63 116/56 L Pulse Oximetry 95 96 95 06/01/18 11:02 06/01/18 11:45 Temperature 99.1 F Pulse Rate 85 Respiratory Rate 15 Blood Pressure 137/77 Blood Pressure [Right Arm] Pulse Oximetry 96 97 Oxygen Delivery Method Room Air Oxygen Flow Rate 0 Narrative Exam Narrative: Left leg is held in a flexed position and appears to be shortened. Any motion of the left leg is painful. Light touch and motion are intact in the left lower extremity. Dorsiflexion and plantar flexion of the toes are intact. Calf is soft. 1+ dorsalis pedis and posterior tibial pulses. Objective Labs Result Diagrams: 06/01/18 06:00 06/01/18 06:00 Labs: Laboratory Results - last 24 hr 06/01/18 06/01/18 06/01/18 06:00 06:00 06:00 WBC 5.9 RBC 3.83 L Hgb 12.8 Hct 36.8 MCV 96.1 MCH 33.4 MCHC 34.8 RDW 11.9 Plt Count 268 Neut % (Auto) 63.0 Lymph % (Auto) 25.0 [place] % (Auto) 7.9 Eos % (Auto) 3.1 Baso % (Auto) 1.0 Neut # (Auto) 3700 PT 11.9 INR 1.0 APTT 28 Sodium 139 Potassium 4.1 Chloride 103 Carbon Dioxide 26 BUN 17 Creatinine 0.60 Estimated GFR > 60.0 BUN/Creatinine Ratio 28.3 H Glucose 96 Calcium 9.1 Total Bilirubin 0.4 AST 37 H ALT 31 Alkaline Phosphatase 79 Total Protein 6.8 Albumin 3.8 Globulin 3.0 Albumin/Globulin Ratio 1.3 Urine Color Urine Appearance Urine pH Ur Specific [place] Urine Protein Urine Glucose (UA) Urine Ketones Urine Occult Blood Urine Nitrate Urine Bilirubin Urine Urobilinogen Ur Leukocyte Esterase Urine RBC Urine WBC Ur Squamous Epith Cells Urine Bacteria Ur Culture Indicated? Micro UA Comment Nasal Screen MRSA (PCR) Blood Type Antibody Screen 06/01/18 06/01/18 06/01/18 06:00 09:21 12:28 WBC RBC Hgb Hct MCV MCH MCHC RDW Plt Count Neut % (Auto) Lymph % (Auto) [place] % (Auto) Eos % (Auto) Baso % (Auto) Neut # (Auto) PT INR APTT Sodium Potassium Chloride Carbon Dioxide BUN Creatinine Estimated GFR BUN/Creatinine Ratio Glucose Calcium Total Bilirubin AST ALT Alkaline Phosphatase Total Protein Albumin Globulin Albumin/Globulin Ratio Urine Color Yellow Urine Appearance Clear Urine pH 6.0 Ur Specific [place] 1.020 Urine Protein Negative Urine Glucose (UA) Negative Urine Ketones Negative Urine Occult Blood Negative Urine Nitrate Negative Urine Bilirubin Negative Urine Urobilinogen 0.2 Ur Leukocyte Esterase Negative Urine RBC None seen Urine WBC 0-1/hpf Ur Squamous Epith Cells 0-1 /hpf Urine Bacteria None seen Ur Culture Indicated? Cult not indicated Micro UA Comment Not Reportable Nasal Screen MRSA (PCR) Negative for mrsa Blood Type A Positive Antibody Screen Negative Radiographs reveal a displaced intertrochanteric left hip fracture. Assessment & Plan Plan: Assessment/Plan Narrative: The patient has a left intertrochanteric hip fracture. She also has a mild preoperative anemia. The risks benefits and alternatives of dynamic hip screw placement for open reduction internal fixation have been discussed with the patient. She agrees to proceed. Risks discussed included but were not limited to: Potential cutting out of the screw, failure to relieve pain or improve function, stiffness, infection, nerve damage, blood loss requiring transfusion, deep venous thrombosis, pulmonary embolism, stroke, myocardial infarction, permanent paralysis and . Surgery will be this afternoon as the operating room schedule allows.
[2018-06-01] MEDS: LACTATED RINGERS 1,000 ML 42 ML IV ×2 (17:00→18:46)
[2018-06-01] MEDS: CEFAZOLIN 1 GM/50 ML FROZ.PIGGY IV (17:30)
--- NOTE | 2018-06-01 17:40 | SUR.OPER ---
Head on pillow. Supine on fracture table with operative leg secured in traction. Other leg secured in padded stirrup. Left arm across chest, secured with sheet. right arm secured on padded arm board
[2018-06-01] MEDS: BUPIVACAINE 0.5% W/ EPI (PF) VIAL 30 ML INJ (18:05)
--- NOTE | 2018-06-01 18:13 | PC.NURSE ---
Addendum entered by Renata Valentin R.N. 06/01/18 19:21: 1900 - Patient returned from PACU in bed by nursing staff. Alert and responsive. Able to move all extremities. Original Note: 1604 - Patient taken to Preop by surgical nurses. Left floor in good condition.
--- NOTE | 2018-06-01 18:35 | PM.OP.1 ---
Operative Date/Time/Diagnoses Date of procedure: 06/01/18 Time of procedure: 18:25 Pre-op diagnosis: Left intertrochanteric femoral fracture Post-op diagnosis: same Procedure & Clinicians Procedure: Left hip open reduction internal fixation with dynamic hip screw Same procedure as scheduled: Yes Indications: The patient is a 73-year-old woman who suffered a ground level fall sustaining the above-noted fracture. She agreed to surgery after discussion the risks benefits and alternatives as outlined in my consultation note. Surgeon: Carlos Banda Click Yes if Unassisted: Yes Anesthesia Type: General and Local Operative Notes Findings: Displaced intertrochanteric hip fracture with appropriate reduction. Closure Type: primary Specimen(s): none sent Implants & Drains: Implants used in this procedure were manufactured by the [employer] and included a 135 degree 4 hole long barrel side plate, a 95 mm length lag screw and 4 4.5 mm cortical screws to hold the plate to the side of the femur. Applied: catheter and implant(s) Estimated Blood Loss (mL): 250 Blood products transfused: none Procedure in detail: The patient was seen in the preoperative area where she identified the left hip as the operative site and this was marked with my initials. She was taken to the operating room on her hospital bed. She underwent induction of a general anesthetic on her hospital bed and then was transferred to the fracture table. The right leg was placed in the well leg richard the left leg in a traction leg richard. The fracture was reduced with traction and internal rotation. The position of the fracture was verified as being satisfactory in the AP and lateral views on fluoroscopy. She received 1 g of cefazolin as perioperative prophylaxis. The lateral aspect of the left thigh was prepared with ChloraPrep in the usual fashion and a vertical adherent drape was placed. An approximately 10 cm incision was created over the proximal femur. This was carried down to the fascia leslie which was incised. The underlying fascia of the vastus lateralis was incised and the muscle was split bluntly with a Victor elevator. A guide pin was placed into the center of the femoral head using a 135 degree guide. This was confirmed as being appropriately positioned on the AP and lateral views of fluoroscopy. It was measured and 5 mm subtracted from its length. The triple Reamer was used and the appropriate length lag screw placed. The 135 degree long barrel side plate was then placed over the screw and tamped into position along the lateral femur. The cortical screws were then placed to complete the fixation of the fracture. The position of all hardware and the fracture was verified as being satisfactory on the AP and lateral views of fluoroscopy. The wound was copiously irrigated with sterile saline solution. Closure was obtained with a running 2 0 Vicryl in the fascia of the vastus lateralis, running and interrupted 0 Vicryl in the fascia leslie, interrupted 3 O Vicryl in the subcutaneous layer and sidney for skin. A total of 20 mL 0.5% Marcaine with epinephrine was injected into the skin and muscle tissue for postoperative pain control. The patient was then transferred to the recovery room in good condition having tolerated the procedure well. Complications: none Condition: stable Disposition: PACU Plan for aftercare: The patient will be allowed to weightbear as tolerated with physical therapy. This will be initiated tomorrow. She will be discharged home once she is stable for her home environment although she may require a short stay at a halfway facility. This will be determined by her progress in physical therapy.
[2018-06-01] MEDS: LORazepam 0.5 MG TABLET PO (19:08)
[2018-06-01] MEDS: OXYCODONE IR 5 MG TABLET PO ×2 (19:10→23:02)
[2018-06-01] MEDS: PRAMIPEXOLE 0.125 MG TABLET 0.375 MG PO (20:06)
[2018-06-01] MEDS: ACETAMINOPHEN 325 MG TABLET 975 MG PO (20:06)
[2018-06-01] MEDS: DOCUSATE 100 MG CAPSULE PO (20:08)
[2018-06-02] VITALS (9 sets, daily range): BP systolic 109–140; BP diastolic 7–66; PULSE 76–98; RESP 11–26; TEMP 36.8–37.3; O2SAT 96–98
[2018-06-02] MEDS: LORazepam 2 MG/ML SYRINGE 0.5 MG IV (00:10)
[2018-06-02] MEDS: CEFAZOLIN 2 GM/100 ML FROZ.PIGGY IV ×2 (01:59→09:05)
[2018-06-02] MEDS: LACTATED RINGERS 1,000 ML 125 ML IV (04:30)
[2018-06-02] MEDS: OXYCODONE IR 5 MG TABLET PO ×5 (04:37→20:09)
[2018-06-02] MEDS: LEVOTHYROXINE 100 MCG TABLET PO (05:17)
[2018-06-02] MEDS: buPROPion XL 150 MG TAB 300 MG PO (05:19)
[2018-06-02] MEDS: LORazepam 0.5 MG TABLET PO ×4 (05:19→20:09)
[2018-06-02 05:23] LABS: Hematocrit 37.2 % (36-46); Hemoglobin 12.6 g/dL (12.0-16.0)
--- NOTE | 2018-06-02 06:30 | PM.PN.1 ---
Subjective Date Patient Seen: 06/02/18 Time Patient Seen: 06:47 Interval history: Doing well postoperatively. Had a pretty good night last night. No significant pain. Sitting up in bed. Had a good conversation. She is eating crackers daughter at the bedside. She says she has no wrist pain. No hip pain. She has not been up out of bed yet. She still little bit tearful and sad but overall doing well. Discussed with surgeon. States she has pretty soft bones. Exam Vital Signs (past 8 hours): - 06/02/18 00:00 06/02/18 00:15 06/02/18 03:49 Temperature 98.7 F Pulse Rate 85 Respiratory Rate 14 Blood Pressure 123/62 Pulse Oximetry 96 97 96 06/02/18 05:00 Temperature 98.2 F Pulse Rate 76 Respiratory Rate 11 L Blood Pressure 109/65 Pulse Oximetry Oxygen Delivery Method Room Air Oxygen Flow Rate 0 Narrative Exam Narrative: Gen.: Alert somewhat tearful HEENT: Pupils equal round and reactive Cardio: S1-S2 regular rate and rhythm no murmurs appreciated. Respiratory: Lungs are clear to auscultation no wheezes or crackles normal respiratory effort. Abdomen: Soft nontender no rebound or guarding no liver spleen enlargement no appreciable hernias Extremities: Warm dry perfused Neurologic: Grossly intact. Objective Labs Result Diagrams: 06/02/18 04:42 06/01/18 06:00 Labs: Laboratory Results - last 24 hr 06/01/18 06/01/18 06/01/18 06:00 06:00 06:00 Hgb Hct PT 11.9 INR 1.0 APTT 28 Sodium 139 Potassium 4.1 Chloride 103 Carbon Dioxide 26 BUN 17 Creatinine 0.60 Estimated GFR > 60.0 BUN/Creatinine Ratio 28.3 H Glucose 96 Calcium 9.1 Total Bilirubin 0.4 AST 37 H ALT 31 Alkaline Phosphatase 79 Total Protein 6.8 Albumin 3.8 Globulin 3.0 Albumin/Globulin Ratio 1.3 Urine Color Urine Appearance Urine pH Ur Specific [place] Urine Protein Urine Glucose (UA) Urine Ketones Urine Occult Blood Urine Nitrate Urine Bilirubin Urine Urobilinogen Ur Leukocyte Esterase Urine RBC Urine WBC Ur Squamous Epith Cells Urine Bacteria Ur Culture Indicated? Micro UA Comment Nasal Screen MRSA (PCR) Blood Type A Positive Antibody Screen Negative 06/01/18 06/01/18 06/02/18 09:21 12:28 04:42 Hgb 12.6 Hct 37.2 PT INR APTT Sodium Potassium Chloride Carbon Dioxide BUN Creatinine Estimated GFR BUN/Creatinine Ratio Glucose Calcium Total Bilirubin AST ALT Alkaline Phosphatase Total Protein Albumin Globulin Albumin/Globulin Ratio Urine Color Yellow Urine Appearance Clear Urine pH 6.0 Ur Specific [place] 1.020 Urine Protein Negative Urine Glucose (UA) Negative Urine Ketones Negative Urine Occult Blood Negative Urine Nitrate Negative Urine Bilirubin Negative Urine Urobilinogen 0.2 Ur Leukocyte Esterase Negative Urine RBC None seen Urine WBC 0-1/hpf Ur Squamous Epith Cells 0-1 /hpf Urine Bacteria None seen Ur Culture Indicated? Cult not indicated Micro UA Comment Not Reportable Nasal Screen MRSA (PCR) Negative for mrsa Blood Type Antibody Screen Assessment & Plan Plan: Assessment/Plan Narrative: Left intratrochanteric hip fracture. Postop day 1. Fracture is pathologic due to osteoporosis. She will be needing treatment with a bisphosphonate and we discussed with that with her today. Left wrist fracture. Wrist brace was placed in the emergency department. This fracture will compound recovery a she will have a difficult time manipulating a walker. We discussed about the potential for going to a care center for a week or so until she improves her ability to walk and ambulate. Depression anxiety. Still quite anxious. Does not tolerate SSRIs. Will continue with current lorazepam dosing and schedule. Tremor essential. She has been working with a neurologist with that. She is currently on Mirapex will hold this while she is in the hospital and restart as needed. Hypothyroidism we will continue with his thyroid replacement. Disposition plan. Physical therapy occupational therapy. Continue inpatient care. Will potentially need transfer to [facility]. [facility] VTE Deep Vein Thrombosis/Pulmonary Embolism Present on Admission: No
[2018-06-02] MEDS: ENOXAPARIN 40 MG/0.4 ML SYRINGE SUBCUT (09:05)
[2018-06-02] MEDS: PRAMIPEXOLE 0.125 MG TABLET 0.375 MG PO ×3 (09:05→20:08)
[2018-06-02] MEDS: DOCUSATE 100 MG CAPSULE PO ×2 (09:06→20:08)
[2018-06-02] MEDS: ACETAMINOPHEN 325 MG TABLET 975 MG PO ×3 (09:09→20:08)
--- NOTE | 2018-06-02 11:07 | CM.DPC ---
Referral faxed to [facility] per [place]
--- NOTE | 2018-06-02 12:14 | CM.DANOTE ---
DCP/Assessment: Reviewed chart. Patient is a 73yr old female admitted to [facility] as inpatient status after GLF/left hip pain. PCP is Dr. Huerta. Primary payor is 1) Medicare 2) AAR. Patient currently POD#1 from left hip repair surgery done by Dr. Banda. It is currently anticipated that patient will need SNF at time of d/c. Therapy evaluation pending. ARCHITECTURAL COATING FINISHER met with patient, daughter/Kaitlyn and spouse/Nehemias at bedside explained CM/SW role. Patient does believe that she will need short SNF stay. Provided patient with Medicare SNF choices and patient requesting to stay in [place]. Therefore, first SNF choice is [facility]. Patient aware that she will need to qualify under therapy guidelines. Do not anticipate d/c prior to Wednesday/-. Placed call to Loni at [facility] she reviewed record and reports that they can accept patient when medically stable. P: [facility] when medically stable if SNF recommended. Patient and family in agreement. RN updated. GHULAM Young Discharge Planning/Care Management CM Discharge Assessment Start: 06/02/18 12:09 Freq: Status: Active Protocol: Document 06/02/18 12:09 [facility] (Rec: 06/02/18 12:14 [facility] [id number]) Discharge Planning Assessment Assigned Delineator GHULAM Young Contact Information Nehemias Davison (phone# [phone] Advance Directives? Yes History Provided By Patient Family Member Significant Other Has Patient been admitted in last 30 No days? Prior Living Arrangements House Household Members spouse Type of transporation used prior to Relies on Others admit Independent with ADL's Yes Is patient alert and oriented? Yes Caregiver for Another No Patient/Family Preference Alf Facility Barriers to Discharge No Discharge Plan Alf Facility Referrals Initiated Alf If patient plan is SNF: Has PASSR been No completed? Inpatient Status as of 06/01/18 Medicare Choice List Provided Yes SNF/HH Preference [facility] Contact Name/Phone Loni # [phone] Has Agency SNF been contacted Yes Whiteboard Updated in Patient Room with Yes name and ext. # of Delineator Review Status In Process Please Provide Date Initial DC 06/02/18 Assessment Was Performed Next Review Type Continued Stay Review
--- NOTE | 2018-06-02 12:27 | PT.IIE ---
Current Diagnoses Displaced intertrochanteric fracture of left femur, initial encounter for closed fracture (06/01/18) Surgery Performed Operation Date: 06/01/18 17:00 Actual Procedures p ORIF Hip DHS(Left) - Carlos Banda MD Surgical History (Last Reviewed 06/01/18 @ 14:17 by Carlos Banda MD) Ventral hernia (Resolved) Status post cholecystectomy Status post colectomy Status post dilation and curettage Status post rotator cuff repair Medical History (Last Reviewed 06/01/18 @ 14:16 by Carlos Banda MD) Essential tremor (Acute) Breast cancer (Chronic) Depression (Chronic) Hypertension (Chronic) Hypothyroidism (Chronic) Physical Therapy Inpatient Evaluation/Re-Eval M1 PT/OT-IP Prior Functional Status Start: 06/02/18 11:54 Freq: NEEDED Status: Active Protocol: Document 06/02/18 11:15 (Rec: 06/02/18 12:27 [email or web address]) Medical Review Prior Functional Status Medical History Reviewed Yes Communication No deficits noted Mobility and Gait Pt is an independent ambulator at home without AD. She does need to hold on to a person for community mobility since pt does not like to use AD per family reports. Family states pt fell a few times within the past year due to her poor balance and decreased strength . Activities of Daily Living and IADL's Independent for ADLs and IADLs . Pt's is able to assist if she needed. Social History Household Members spouse Living Arrangements House Number of Floors (Floors) One Floor Number of Stairs To Enter/Railing? No NOAH Home Environment Walk in Shower Employment Status Retired Additional Social History Comment Pt lives with her at a 1 story house with a walk in shower and a shower chair at the corner. Pt's also states that they have a lower toilet seat that could be difficult sometimes for toileting. Family reports pt refuses to use AD at all time but she does need CGA for community mobility from time to time. M2 PT-IP Current Condition Start: 06/02/18 11:54 Freq: NEEDED Status: Active Protocol: Document 06/02/18 11:15 (Rec: 06/02/18 12:27 [email or web address]) Physical Therapy Current Condition Current Condition Evaluation Date 06/01/18 Treatment Diagnosis Post L hip ORIF, difficulty in walking, generalized muscle weakness Onset Date 05/31/18 Precautions Other Precautions WBAT Weight Bearing Status Weight Bearing Status Weight Bear as Tolerated M3 PT-IP Subjective Start: 06/02/18 11:54 Freq: NEEDED Status: Active Protocol: Document 06/02/18 11:15 (Rec: 06/02/18 12:27 [email or web address]) Subjective Physical Therapy Visit Type Type Initial Evaluation Visit Start Time 11:15 Visit Stop Time 12:00 Total Visit Minutes 45 Notes Pt agreeable to mobilize with PT with her and daughter bedside. Pt denies pain who also received pain medication at around 930 am. Pt does not appear any distress and motivated to get OOB and possibly amb today. Number of THERMAL SPRAY OPERATOR Visits 0 Physical Therapy Visit Comments Patient Comments Pt states I want to get out of bed to walk around today. But i am also nervous about my pain. Patient Goals To be d/c home before [place] frieda. To be able to amb as alize without AD Therapy Pain Assessment Pain When Pain Assessed During Mobility Pain Present Pain Present Pain Reported Location Left Hip Intensity 4 Scale Used Numeric (1 - 10) Description Acute Pain Management Techniques Apply Cold Re-positioning Timing of Activity with Medications M4 PT-IP Mobility and Gait Start: 06/02/18 11:54 Freq: NEEDED Status: Active Protocol: Document 06/02/18 11:15 (Rec: 06/02/18 12:27 [email or web address]) PT-Bed Mobility Assessment Supine to Sit Supine to Sit Minimal Assistance 1 Person Assistance Head of Bed Elevated Sit to Supine Sit to Supine 1 Person Assistance Scooting Scooting to Edge of Bed Contact Guard Assistance Minimal Assistance PT-Transfer Assessment Sit to and From Stand Sit to and from Stand Minimal Assistance 1 Person Assistance Use of Upper Extremities Equipment Transfer Assistive Device Gait Belt Front Wheeled Walker Transfers Transfer Destination Bed Chair Transfer Technique Stand Step Pivot Transfer Ability Level of Assist Contact Guard Assistance Minimal Assistance Comments Mobility Comments Pt BP remains stable during transfer. BP ranged from 120- 150/60-80 HR 80-95 with no acute distress. Pt performs supine to sit towards her L side from elevated HOB 30 degrees. Pt requires min A to unweight her L LE. Pt did not perform log rolling to L due to c/o at surgical site against pressure . Pt is able to sit to stand with FWW min A 2 person followed by stand step pivot towards her bedside chair on the right. Pt requires constant v.c. with step to pattern and directional guidance. She c/o L hip pain 4/10 during mobility and dose not show any acute distress and LOB. Gait Assessment Gait Gait Assistance Required: Minimum Assistance Distance (Feet) 3 Able to Maintain Weight Bearing Status Yes During Gait Assistive Devices Assistive Device Gait Belt Front Wheeled Walker Gait Deviations General Gait Pattern Antalgic Decreased Stride Length Decreased Feet Clearance Step-to Gait Factors Limiting Gait Function Factors Limiting Gait Function Abnormal Tonal Influences Decreased Activity Tolerance Decreased Strength Difficulty Following Directions Limited Range of Motion Pain Poor Balance Poor Safety Awareness Comments Gait Comments Pt amb from EOB to bedside chair on her R side with FWW 2 person min A. Pt requires min A to lateral weight shift to L to facilitate swing phase of R LE. Pt's gait efficiency is limited by pain who also requires constant v.c. to facilitate step to pattern. Pt is instructed to use short step to pattern for R LE to reduce pain spending on WB with her L LE. PT-Balance Assessment Sitting Balance and Reactions Static Sitting Balance Ability Normal Dynamic Sitting Balance Ability Good Standing Balance and Reactions Static Standing Balance Ability Good Dynamic Standing Balance Ability Fair M5 PT-IP Objective Assessments Start: 06/02/18 11:54 Freq: NEEDED Status: Active Protocol: Document 06/02/18 11:15 (Rec: 06/02/18 12:27 [email or web address]) Orientation Orientation/Cognition Level of Alertness Alert Language Function Ability Hard of Hearing Memory Description Short Term Impaired Comments Pt requires intermittent v.c for commands. Gross Range of Motion Upper Extremity ROM Assessment Within Functional Limits Lower Extremity ROM Assessment Right Impaired Strength Upper Extremity Strength Assessment Within Functional Limits Lower Extremity Strength Assessment Right Impaired Comments Strength Comments 2+/5 MMT Coordination Assessment Gross Coordination Gross Coordination WNL Sensation Assessment Sensation Gross Sensation WNL M6 PT-IP Treatment Start: 06/02/18 11:54 Freq: NEEDED Status: Active Protocol: Document 06/02/18 11:15 (Rec: 06/02/18 12:27 [email or web address]) Physical Therapy Treatment Exercises Exercises Ankle Pumps Gluteal Sets Quad Sets Heel Slides Short Arc Quads Education Education Provided Precautions Weight Bearing Status Post-Op Packet Safety Other Treatments Other Treatment Performed Standing TKE standing lateral weight shift M7 PT-IP Assessment and Plan Start: 06/02/18 11:54 Freq: NEEDED Status: Active Protocol: Document 06/02/18 11:15 (Rec: 06/02/18 12:27 [email or web address]) PT Summary Assessment and Plan Potential Rehabilitation Potential Good Status of Condition at Evaluation Evolving Summary Impairments Pain ROM Strength Balance Cognition Bed Mobility Transfers Gait Activity Tolerance Assessment Summary Pt is a very pleasant individual with a support family. However, pt does requires constant v.c. for commands due to her impaired short term memory. Pt and her family also states pt is very anxious about getting back to her PLOF who requires constant verbal support for motivation . Pt is now post op day 1 of L ORIF and cleared for cervical collar per MRI report. Pt is also WBAT for her L hip. Upon assessment, pt is able to perform isometric leg press against PT and 1/2 supine heel slide. She is generally able to perform bed mobility and chair transfer with min A with 1-2 persons. Pt also amb 4 feet from bedside to chair with min A along with v.c. for step to pattern and lateral weight shift. Pt is not safe to d/c home at this point due to her multiple impairments ( decreased strength, mobility, balance and previous fall risks) Pt will cont require skilled therapy to improve pt' s safety awareness, overall functional strength and mobility for ADLs and IADLs prior to d/c. Recommend pt to be d/c to SNF for further rehab or home health depends on pt's progress. Goals Bed Mobility Goal Independent Standby Assistance Transfer Goal Independent Standby Assistance Gait Goal Independent Standby Assistance Gait Distance 50 Days to Meet Goals 5 Frequency of Treatment Frequency Of Treatment Twice a Day Treatment Plan Physical Therapy Treatment Plan Bed Mobility Training Transfer Training Gait Training Therapeutic Exercise Balance Retraining Discharge Planning Hot or Cold Pack Neuromuscular Re-ed Other Recommendations and Next Treatment log roll; chair transfer; Focus commode transfer; gait training Recommendations To Nursing Amount of Assist Needed 2 Person Assist Discharge Recommendations PT Discharge Recommendations Home Health SNF Rehab Equipment Needed for Home Before FWW/ 4 WW Discharge
--- NOTE | 2018-06-02 14:32 | DIET.PN ---
One day post op for FXH. Eaten 100% meals today. Dx: GLF, FXH BMI 19 Adam score: 16 Assessment: high risk for skin breakdown per adam score. Nutritional status on admit appears fair w/stable wt and no change in PO intake. Increased nutrient needs post surgery Intervention: Add Ens Enlive to meals TID to help enhance healing; provide additional protein and help avoid loss of muscle while recouperating
--- NOTE | 2018-06-02 15:35 | PT.IPTN ---
Current Diagnoses Displaced intertrochanteric fracture of left femur, initial encounter for closed fracture (06/01/18) Surgery Performed Operation Date: 06/01/18 17:00 Actual Procedures p ORIF Hip DHS(Left) - Carlos Banda MD Physical Therapy Treatment Note M2 PT-IP Current Condition Start: 06/02/18 11:54 Freq: NEEDED Status: Active Protocol: Document 06/02/18 11:15 HH (Rec: 06/02/18 12:27 HH [email or web address]) Physical Therapy Current Condition Current Condition Evaluation Date 06/01/18 Treatment Diagnosis Post L hip ORIF, difficulty in walking, generalized muscle weakness Onset Date 05/31/18 Precautions Other Precautions WBAT Weight Bearing Status Weight Bearing Status Weight Bear as Tolerated M3 PT-IP Subjective Start: 06/02/18 11:54 Freq: NEEDED Status: Active Protocol: Document 06/02/18 15:25 GGD (Rec: 06/02/18 16:43 GGD [id number]) Subjective Physical Therapy Visit Type Type Treatment Note Visit Start Time 14:55 Visit Stop Time 15:25 Total Visit Minutes 30 Number of APPLICATION COORDINATOR Visits 1 Physical Therapy Visit Comments Patient Comments Pt states she is tired, but want's to walk. Therapy Pain Assessment Pain When Pain Assessed During Mobility Pain Present Pain Present Pain Reported M4 PT-IP Mobility and Gait Start: 06/02/18 11:54 Freq: NEEDED Status: Active Protocol: Document 06/02/18 15:25 GGD (Rec: 06/02/18 16:43 GGD [id number]) PT-Bed Mobility Assessment Sit to Supine Sit to Supine Moderate Assistance 2 Person Assistance Scooting Scooting to Edge of Bed Contact Guard Assistance PT-Transfer Assessment Sit to and From Stand Sit to and from Stand Minimal Assistance 1 Person Assistance Use of Upper Extremities Equipment Transfer Assistive Device Gait Belt Platform Walker Orthotic/Prosthetic Devices or Brace: Yes Transfers Transfer Destination Bed Transfer Ability Level of Assist Contact Guard Assistance 1 Person Assistance Use of Upper Extremities Comments Mobility Comments left side platform walker Gait Assessment Gait Gait Assistance Required: Minimum Assistance 1 Person Assist Distance (Feet) 20 Able to Maintain Weight Bearing Status Yes During Gait Assistive Devices Assistive Device Gait Belt Platform Walker Orthotic/Prosthetic Devices or Brace: Yes Gait Deviations General Gait Pattern Decreased Stride Length Decreased Feet Clearance Step-to Gait Factors Limiting Gait Function Factors Limiting Gait Function Decreased Activity Tolerance Decreased Strength Limited Range of Motion Pain Poor Balance M5 PT-IP Objective Assessments Start: 06/02/18 11:54 Freq: NEEDED Status: Active Protocol: Document 06/02/18 11:15 HH (Rec: 06/02/18 12:27 HH [email or web address]) Orientation Orientation/Cognition Level of Alertness Alert Language Function Ability Hard of Hearing Memory Description Short Term Impaired Comments Pt requires intermittent v.c for commands. Gross Range of Motion Upper Extremity ROM Assessment Within Functional Limits Lower Extremity ROM Assessment Right Impaired Strength Upper Extremity Strength Assessment Within Functional Limits Lower Extremity Strength Assessment Right Impaired Comments Strength Comments 2+/5 MMT Coordination Assessment Gross Coordination Gross Coordination WNL Sensation Assessment Sensation Gross Sensation WNL M6 PT-IP Treatment Start: 06/02/18 11:54 Freq: NEEDED Status: Active Protocol: Document 06/02/18 15:25 GGD (Rec: 06/02/18 16:43 GGD [id number]) Physical Therapy Treatment Exercises Exercises Ankle Pumps Seated Knee Flexion/Extension Education Education Provided Precautions Safety M7 PT-IP Assessment and Plan Start: 06/02/18 11:54 Freq: NEEDED Status: Active Protocol: Document 06/02/18 15:25 GGD (Rec: 06/02/18 16:43 GGD [id number]) PT Summary Assessment and Plan Summary Assessment Summary Pt able to progress gait distance, step length and foot clearance. She had less left wrist pain with the use of platform walker. She did need mod A with bed mobility due to fatigue after ambulation. Pt would benefit from SNF to improve strength and functional mobility. Frequency of Treatment Frequency Of Treatment Twice a Day Treatment Plan Physical Therapy Treatment Plan Bed Mobility Training Transfer Training Gait Training Therapeutic Exercise Balance Retraining Discharge Planning Hot or Cold Pack Neuromuscular Re-ed Other Recommendations and Next Treatment log roll; chair transfer; Focus commode transfer; gait training Recommendations To Nursing Amount of Assist Needed 2 Person Assist Discharge Recommendations PT Discharge Recommendations SNF Rehab
--- NOTE | 2018-06-02 18:00 | OT.IP.EVAL ---
Current Diagnoses Displaced intertrochanteric fracture of left femur, initial encounter for closed fracture (06/01/18) Surgery Performed Operation Date: 06/01/18 17:00 Actual Procedures p ORIF Hip DHS(Left) - Carlos Banda MD Past Medical History (Last Reviewed 06/01/18 @ 14:16 by Carlos Banda MD) Essential tremor (Acute) Breast cancer (Chronic) Depression (Chronic) Hypertension (Chronic) Hypothyroidism (Chronic) Surgical History (Last Reviewed 06/01/18 @ 14:17 by Carlos Banda MD) Ventral hernia (Resolved) Status post cholecystectomy Status post colectomy Status post dilation and curettage Status post rotator cuff repair Occupational Therapy Inpatient Evaluation/Re-Eval M1 PT/OT-IP Prior Functional Status Start: 06/02/18 11:54 Freq: NEEDED Status: Active Protocol: Document 06/02/18 15:05 [facility] (Rec: 06/02/18 17:59 [facility] [id number]) Medical Review Prior Functional Status Medical History Reviewed Yes Communication No deficits noted Mobility and Gait Pt is an independent ambulator at home without AD. She does need to hold on to a person for community mobility since pt does not like to use AD per family reports. Family states pt fell a few times within the past year due to her poor balance and decreased strength . Activities of Daily Living and IADL's Independent for ADLs and IADLs . Pt's is able to assist if she needed. Pt states does the bills now. Social History Household Members spouse Living Arrangements House Number of Floors (Floors) One Floor Number of Stairs To Enter/Railing? No NOAH Home Environment Walk in Shower Tub/Shower Employment Status Retired Additional Social History Comment Pt lives with her at a 1 story house with a walk in shower and a shower chair at the corner. Pt's also states that they have a lower toilet seat that could be difficult sometimes for toileting. Family reports pt refuses to use AD at all time but she does need CGA for community mobility from time to time. M2 OT-IP Current Condition Start: 06/01/18 09:15 Freq: Status: Active Protocol: Document 06/02/18 15:05 [facility] (Rec: 06/02/18 17:59 [facility] [id number]) Occupational Therapy Current Condition Current Condition Evaluation Date 06/02/18 Treatment Diagnosis Displaced intertrochanteric fracture of left femur Diagnosis Onset Date 06/01/18 Post Operative Precautions Other Precautions WBAT for LLE Pt has left distal radius suspicious for nondisplaced fracture on x-ray, therefore to opt for NWB to left wrist until able to clarify with doctor. Pt wearing brace to left hand. Nursing notified and looking to clarify use of LUE. Weight Bearing Status Weight Bearing Status Weight Bear as Tolerated Allowed Weight Bearing Amount (enter % NWB for left wrist until or #) (%) clarification from doctor. M3 OT- IP Subjective and Pain Start: 06/01/18 09:15 Freq: Status: Active Protocol: Document 06/02/18 15:05 [facility] (Rec: 06/02/18 17:59 [facility] [id number]) OT- Subjective Occupational Therapy Visit Type Type Initial Evaluation Visit Start Time 15:05 Visit Stop Time 15:45 Total Visit Minutes 40 Occupational Therapy Visit Comments Patient Comments Pt's daughter and ENGINE RESEARCH ENGINEER in the room when coming into the room to see pt for OT eval. Patient/Caregiver Goals Pt wanting to be home by Anthony malave. OT Pain Assessment Pain When Pain Assessed During Mobility Pain Present Pain Present Pain Reported M4 OT- IP ADL's Start: 06/01/18 09:15 Freq: Status: Active Protocol: Document 06/02/18 15:05 [facility] (Rec: 06/02/18 17:59 [facility] [id number]) OT ADL-Dressing General Eval Lower Body Dressing Ability Maximum Assistance Comments OT Dressing Comments Due to decrased use of left hand pt needing MAX A for LB dressing needs M5 OT- IP IADL's Start: 06/01/18 09:15 Freq: Status: Active Protocol: Document 06/02/18 15:05 [facility] (Rec: 06/02/18 17:59 [facility] [id number]) OT-Instrumental Activities of Daily Living Money Management Money Management Caregiver Provides Assistance Meal Preparation Meal Preparation Caregiver Provides Assist Executive Vp Executive Vp Caregiver Provides Assist M6 OT- IP Functional Cognition Start: 06/01/18 09:15 Freq: Status: Active Protocol: Document 06/02/18 15:05 [facility] (Rec: 06/02/18 17:59 [facility] [id number]) Cognitive Factors Limiting Selfcare Function Cognitive Ability Level of Alertness Alert Patient Orientation Name Place Situation Attention Span Ability Capable of Focused Attention Capable of Sustained Attention Unable to Sustain Attention Ability to Follow Commands Able to Follow One Step Commands Memory Description Short Term Impaired Safety Awareness Decreased Ability to Apply Precautions Underestimates Need for Assistance Cognitive Comments Cognitive Assessment Comments Pt very tearful and anxious and needs vc to stay focused, recall use and safety for FWW. OT- Vision and Hearing OT- Hearing Assessment OT- Hearing Assessment WFL M7 OT- IP Mobility and Balance Start: 06/01/18 09:15 Freq: Status: Active Protocol: Document 06/02/18 15:05 [facility] (Rec: 06/02/18 17:59 [facility] [email or web address]) OT- Bed Mobility Assessment Sit to Supine Sit to Supine Assist Moderate Assistance 2 Person Assistance OT-Transfer Assessment Transfers Transfer Ability Minimal Assistance Technique Transfer Destination Bed Devices Transfer Assistive Devices Platform Walker Comments Mobility Comments Pt able to use platform walker with assist for guidance of platform walker and MOD vc for sequence and safety. OT- Balance Assessment Sitting Balance and Reactions Static Sitting Balance Ability Good M8 OT- IP Objective Assessments Start: 06/01/18 09:15 Freq: Status: Active Protocol: Document 06/02/18 15:05 [facility] (Rec: 06/02/18 17:59 [facility] [email or web address]) OT Gross Range of Motion Upper Extremity Range of Motion Assessment Within Functional Limits OT Strength Comments Strength Comments RUE 4/5 , LUE NT due to left wrist fracture. M9 OT- IP Assessment and Plan Start: 06/01/18 09:15 Freq: Status: Active Protocol: Document 06/02/18 15:05 [facility] (Rec: 06/02/18 17:59 [facility] [email or web address]) OT Summary Assessment and Plan Potential Rehabilitation Potential Good Analytic Complexity at Evaluation Low Summary OT Impairments Pain Strength Balance Functional Cognition Functional Mobility Self-Feeding Grooming Dressing Toileting Bathing Toilet Transfers Shower Transfers Progress Towards Goals Slow Progress due to Pain Slow Progress due to Medical Issues Slow Progress due to Activity Tolerance Slow Progress due to Cognition Assessment Summary Pt Low complexity and main barriers are pt's ability to stay focused as easily distracted with her emotions, now needing assist for all ADL and functional mobility due to recent L hip and wrist fracture. Pt also has decreased strength, endurance, and activity tolerance and will benefit from skilled rehab prior to going home. Goals Self-Feeding Goal Standby Assistance Grooming Goal Contact Guard Assistance Dressing Goal Minimal Assistance Toileting Goal Contact Guard Assistance Bathing Goal Moderate Assistance Toilet Transfer Goal Standby Assistance Shower Transfer Goal Contact Guard Assistance Patient/Caregiver Education Goal Caregiver Independent Assisting Patient Days to Meet Goals 7 Frequency of Treatment Frequency Of Treatment Once a Day Treatment Plan OT Treatment Plan ADL Training Functional Cognition Training Functional Mobility Patient/Family Education Discharge Planning Other Treatment Recommendations and Next Standing at the sink, use of Treatment Focus AED for LB dressing. Discharge Recommendations OT Discharge Recommendations SNF Rehab Home Equipment Needs BSC, platform walker, shower chair,HHSP, suction cup grab bars
[2018-06-03] VITALS (8 sets, daily range): BP systolic 114–153; BP diastolic 52–70; PULSE 83–99; RESP 16–20; TEMP 35.9–37.9; O2SAT 94–99
[2018-06-03] MEDS: OXYCODONE IR 5 MG TABLET PO ×5 (00:13→17:26)
[2018-06-03] MEDS: OXYCODONE IR 10 MG TABLET PO ×2 (05:52→21:13)
[2018-06-03] MEDS: LEVOTHYROXINE 100 MCG TABLET PO (05:54)
[2018-06-03] MEDS: ENOXAPARIN 40 MG/0.4 ML SYRINGE SUBCUT (09:01)
[2018-06-03] MEDS: ACETAMINOPHEN 325 MG TABLET 975 MG PO ×3 (09:01→21:10)
[2018-06-03] MEDS: DOCUSATE 100 MG CAPSULE PO ×2 (09:02→21:10)
[2018-06-03] MEDS: PRAMIPEXOLE 0.125 MG TABLET 0.375 MG PO ×3 (09:02→21:14)
[2018-06-03] MEDS: buPROPion XL 150 MG TAB 300 MG PO (09:02)
[2018-06-03] MEDS: LORazepam 0.5 MG TABLET PO ×3 (09:04→21:12)
--- NOTE | 2018-06-03 09:04 | PM.PN.1 ---
Subjective Date Patient Seen: 06/03/18 Time Patient Seen: 09:04 Interval history: Doing well this morning sitting up in a chair. Pain is well control. Still has catheter and monitoring coordinator on. Did okay yesterday. Minimal pain. Slept okay last night. Discussed about [facility] she would be interested in that. No significant wrist pain. No bowel movement yet. No complaints of chest pain lightheaded dizziness shortness of breath. Mildly anxious. Exam Vital Signs (past 8 hours): - 06/03/18 05:30 06/03/18 08:00 Temperature 96.7 F L 98.9 F Pulse Rate 84 90 Respiratory Rate 16 17 Blood Pressure 114/59 L 153/70 H Pulse Oximetry 99 98 Oxygen Delivery Method Room Air Oxygen Flow Rate 0 Narrative Exam Narrative: Gen.: Alert good historian HEENT: Pupils equal round and reactive or mucosa is moist Cardio: S1-S2 regular rate and rhythm no murmurs appreciated. Respiratory: Lungs are clear to auscultation no wheezes or crackles normal respiratory effort. Abdomen: Soft nontender no rebound or guarding no liver spleen enlargement no appreciable hernias Extremities: Warm dry perfused. Good pulses Objective Labs Result Diagrams: 06/02/18 04:42 06/01/18 06:00 Assessment & Plan Plan: Assessment/Plan Narrative: Left intratrochanteric hip fracture. Postop day 2 Fracture is pathologic due to osteoporosis. She will be needing treatment with a bisphosphonate and we discussed with that with her today. Left wrist fracture. Currently with wrist brace. Will need to be on for at least 6 weeks. Depression anxiety. Still quite anxious. Does not tolerate SSRIs. Will continue with current lorazepam dosing and schedule. Tremor essential. She has been working with a neurologist with that. She is currently on Mirapex will hold this while she is in the hospital and restart as needed. Hypothyroidism we will continue with his thyroid replacement. Disposition plan DC monitoring coordinator. [facility]ically [facility] by [facility]opedic surgery. Quality VTE Deep Vein Thrombosis/Pulmonary Embolism Present on Admission: No
--- NOTE | 2018-06-03 09:07 | P.PN_ITS ---
Subjective Date Patient Seen: 06/03/18 Time Patient Seen: 09:04 Interval history: Doing well this morning sitting up in a chair. Pain is well control. Still has catheter and quality assurance monitor chassis on. Did okay yesterday. Minimal pain. Slept okay last night. Discussed about [facility] [place] [facility] she would be interested in that. No significant wrist pain. No bowel movement yet. No complaints of chest pain lightheaded dizziness shortness of breath. Mildly anxious. Exam Vital Signs (past 8 hours): - 06/03/18 05:30 06/03/18 08:00 Temperature 96.7 F L 98.9 F Pulse Rate 84 90 Respiratory Rate 16 17 Blood Pressure 114/59 L 153/70 H Pulse Oximetry 99 98 Oxygen Delivery Method Room Air Oxygen Flow Rate 0 Narrative Exam Narrative: Gen.: Alert good historian HEENT: Pupils equal round and reactive or mucosa is moist Cardio: S1-S2 regular rate and rhythm no murmurs appreciated. Respiratory: Lungs are clear to auscultation no wheezes or crackles normal respiratory effort. Abdomen: Soft nontender no rebound or guarding no liver spleen enlargement no appreciable hernias Extremities: Warm dry perfused. Good pulses Objective Labs Result Diagrams: 06/02/18 04:42 06/01/18 06:00 Assessment & Plan Plan: Assessment/Plan Narrative: Left intratrochanteric hip fracture. Postop day 2 Fracture is pathologic due to osteoporosis. She will be needing treatment with a bisphosphonate and we discussed with that with her today. Left wrist fracture. Currently with wrist brace. Will need to be on for at least 6 weeks. Depression anxiety. Still quite anxious. Does not tolerate SSRIs. Will continue with current lorazepam dosing and schedule. Tremor essential. She has been working with a neurologist with that. She is currently on Mirapex will hold this while she is in the hospital and restart as needed. Hypothyroidism we will continue with his thyroid replacement. Disposition plan DC quality assurance monitor chassis. Medically stable to be transferred to [facility] facility when cleared by Orthopedic surgery. Quality VTE Deep Vein Thrombosis/Pulmonary Embolism Present on Admission: No
--- NOTE | 2018-06-03 11:47 | PM.PNPO.1 ---
Subjective Date Patient Seen: 06/03/18 Time Patient Seen: 11:47 Interval history: Hospital day 3, postop day 2 following left hip intratrochanteric fracture with dynamic hip screw placed by Dr. Banda. Patient also has left distal radius styloid fracture with minimal displacement. She has been in a thumb spica brace. Limited weight-bearing to left arm. She is weight-bearing as tolerated to the left leg. Grider catheter DC this morning but she has not voided yet. PT/OT recommend SNF for further rehab. Patient using oxycodone for pain. Exam Vital Signs (past 8 hours): - 06/03/18 05:30 06/03/18 08:00 Temperature 96.7 F L 98.9 F Pulse Rate 84 90 Respiratory Rate 16 17 Blood Pressure 114/59 L 153/70 H Pulse Oximetry 99 97 Oxygen Delivery Method Room Air Oxygen Flow Rate 0 Narrative Exam Narrative: Alert, oriented no acute distress sitting in chair. Left leg. Dressing to left lateral hip is dry with small area of shadowing. No signs of drainage or inflammation. No calf pain or swelling. Pulses symmetrical. Patient does have weakness with firing quad. Left arm. Thumb spica brace in place. Good blanching and sensation of fingers. Objective Labs Result Diagrams: 06/02/18 04:42 06/01/18 06:00 Assessment & Plan Post-op Postoperative Procedures Operation Date: 06/01/18 17:00 Actual Procedures Side Surgeon p ORIF Hip DHS Left Carlos Banda MD Plan: Patient is weight-bearing as tolerated to left leg. She is stable in her left wrist thumb spica brace. She will be discharged to SNF pending clearance by her PCP. Would plan to have patient follow up at [facility] Orth[facility] office 2 weeks postop for x-ray of left wrist and left hip and for dressing change and staple removal. She would then need a postop visit with Dr. Banda at 6 weeks postop. Quality VTE Deep Vein Thrombosis/Pulmonary Embolism Present on Admission: No
--- NOTE | 2018-06-03 12:11 | OT.IP.TRT ---
Current Diagnoses Displaced intertrochanteric fracture of left femur, initial encounter for closed fracture (06/01/18) Surgery Performed Operation Date: 06/01/18 17:00 Actual Procedures p ORIF Hip DHS(Left) - Carlos Banda MD Occupational Therapy Treatment Note M2 OT-IP Current Condition Start: 06/01/18 09:15 Freq: Status: Active Protocol: Document 06/02/18 15:05 [facility] (Rec: 06/02/18 17:59 [facility] [id number]) Occupational Therapy Current Condition Current Condition Evaluation Date 06/02/18 Treatment Diagnosis Displaced intertrochanteric fracture of left femur Diagnosis Onset Date 06/01/18 Post Operative Precautions Other Precautions WBAT for LLE Pt has left distal radius suspicious for nondisplaced fracture on x-ray, therefore to opt for NWB to left wrist until able to clarify with doctor. Pt wearing brace to left hand. Weight Bearing Status Weight Bearing Status Weight Bear as Tolerated Allowed Weight Bearing Amount (enter % NWB for left wrist until or #) (%) clarification from doctor. M3 OT- IP Subjective and Pain Start: 06/01/18 09:15 Freq: Status: Active Protocol: Document 06/03/18 11:57 [facility] (Rec: 06/03/18 12:11 [facility] [id number]) OT- Subjective Occupational Therapy Visit Type Type Treatment Note Visit Start Time 11:12 Visit Stop Time 11:52 Total Visit Minutes 40 Notes Spoke to PA to clarify if pt able to LUE, PA states,just do not have her push on it much on left wrist. Occupational Therapy Visit Comments Patient Comments Pt wanting to get back to bed. OT Pain Assessment Pain When Pain Assessed During Mobility Pain Present Pain Present Pain Reported Location Left Hip Intensity 5 Scale Used Numeric (1 - 10) M4 OT- IP ADL's Start: 06/01/18 09:15 Freq: Status: Active Protocol: Document 06/03/18 11:57 [facility] (Rec: 06/03/18 12:11 [facility] [id number]) OT ADL-Dressing General Eval Lower Body Dressing Ability Maximum Assistance Comments OT Dressing Comments Pt continues to be MAX A for LB dressing needs. OT ADL-Toileting General Evaluation Toileting Ability Maximum Assistance M5 OT- IP IADL's Start: 06/01/18 09:15 Freq: Status: Active Protocol: Document 06/02/18 15:05 [facility] (Rec: 06/02/18 17:59 [facility] [email or web address]) OT-Instrumental Activities of Daily Living Money Management Money Management Caregiver Provides Assistance Meal Preparation Meal Preparation Caregiver Provides Assist Chief Construction Inspector Chief Construction Inspector Caregiver Provides Assist M6 OT- IP Functional Cognition Start: 06/01/18 09:15 Freq: Status: Active Protocol: Document 06/03/18 11:57 [facility] (Rec: 06/03/18 12:11 [facility] [id number]) Cognitive Factors Limiting Selfcare Function Cognitive Ability Level of Alertness Alert Patient Orientation Name Place Situation Attention Span Ability Capable of Focused Attention Capable of Sustained Attention Unable to Sustain Attention Ability to Follow Commands Able to Follow One Step Commands Memory Description Short Term Impaired Safety Awareness Decreased Ability to Apply Precautions Underestimates Need for Assistance Cognitive Comments Cognitive Assessment Comments Pt continued to need lots of encouragement and education for safety of platform FWW use , placement of hands, to try to relax. M7 OT- IP Mobility and Balance Start: 06/01/18 09:15 Freq: Status: Active Protocol: Document 06/03/18 11:57 [facility] (Rec: 06/03/18 12:11 [facility] [email or web address]) OT- Bed Mobility Assessment Sit to Supine Sit to Supine Assist Maximum Assistance 1 Person Assistance OT-Transfer Assessment Transfers Transfer Ability Minimal Assistance Technique Transfer Destination Bed Devices Transfer Assistive Devices Platform Walker Comments Mobility Comments MAX vc for platform walker use , which feet to move and needing MAX A to stand from BSC and chair due to having more pain with LLE and not able to push up from with LUE. OT- Balance Assessment Sitting Balance and Reactions Static Sitting Balance Ability Good M8 OT- IP Objective Assessments Start: 06/01/18 09:15 Freq: Status: Active Protocol: Document 06/02/18 15:05 [facility] (Rec: 06/02/18 17:59 [facility] [email or web address]) OT Gross Range of Motion Upper Extremity Range of Motion Assessment Within Functional Limits OT Strength Comments Strength Comments RUE 4/5 , LUE NT due to left wrist fracture. M9 OT- IP Assessment and Plan Start: 06/01/18 09:15 Freq: Status: Active Protocol: Document 06/03/18 11:57 [facility] (Rec: 06/03/18 12:11 [facility] [email or web address]) OT Summary Assessment and Plan Potential Rehabilitation Potential Good Analytic Complexity at Evaluation Low Summary OT Impairments Pain Strength Balance Functional Cognition Functional Mobility Self-Feeding Grooming Dressing Toileting Bathing Toilet Transfers Shower Transfers Progress Towards Goals Slow Progress due to Pain Slow Progress due to Medical Issues Slow Progress due to Activity Tolerance Slow Progress due to Cognition Assessment Summary Pt will continue to benefit from skilled rehab prior to going home. Pt less tearful today and and very motivated to get better and go home after rehab stay. Goals Self-Feeding Goal Standby Assistance Grooming Goal Contact Guard Assistance Dressing Goal Minimal Assistance Toileting Goal Contact Guard Assistance Bathing Goal Moderate Assistance Toilet Transfer Goal Standby Assistance Shower Transfer Goal Contact Guard Assistance Patient/Caregiver Education Goal Caregiver Independent Assisting Patient Days to Meet Goals 7 Frequency of Treatment Frequency Of Treatment Once a Day Treatment Plan OT Treatment Plan ADL Training Functional Cognition Training Functional Mobility Patient/Family Education Discharge Planning Other Treatment Recommendations and Next Standing at the sink, use of Treatment Focus AED for LB dressing. Discharge Recommendations OT Discharge Recommendations SNF Rehab Home Equipment Needs BSC, platform walker, shower chair,HHSP, suction cup grab bars
--- NOTE | 2018-06-03 13:56 | PT.IPTN ---
Current Diagnoses Displaced intertrochanteric fracture of left femur, initial encounter for closed fracture (06/01/18) Surgery Performed Operation Date: 06/01/18 17:00 Actual Procedures p ORIF Hip DHS(Left) - Carlos Banda MD Physical Therapy Treatment Note M2 PT-IP Current Condition Start: 06/02/18 11:54 Freq: NEEDED Status: Active Protocol: Document 06/02/18 11:15 HH (Rec: 06/02/18 12:27 HH [email or web address]) Physical Therapy Current Condition Current Condition Evaluation Date 06/01/18 Treatment Diagnosis Post L hip ORIF, difficulty in walking, generalized muscle weakness Onset Date 05/31/18 Precautions Other Precautions WBAT Weight Bearing Status Weight Bearing Status Weight Bear as Tolerated M3 PT-IP Subjective Start: 06/02/18 11:54 Freq: NEEDED Status: Active Protocol: Document 06/03/18 10:50 HH (Rec: 06/03/18 12:12 [email or web address]) Subjective Physical Therapy Visit Type Type Treatment Note Visit Start Time 10:50 Visit Stop Time 11:20 Total Visit Minutes 30 Notes Pt agreeable to mobilize with PT. Pt denies pain at rest and requests to use commode before further amb. Physical Therapy Visit Comments Patient Comments Pt reports I walked around the bed yesterday with [employer] and i would like to do the same today. But i have to use the commode first. Therapy Pain Assessment Pain When Pain Assessed During Mobility Pain Present Pain Present Pain Reported Location Left Hip Intensity 5 Scale Used Numeric (1 - 10) Description Acute Pain Management Techniques Apply Cold Re-positioning Timing of Activity with Medications M4 PT-IP Mobility and Gait Start: 06/02/18 11:54 Freq: NEEDED Status: Active Protocol: Document 06/03/18 10:50 HH (Rec: 06/03/18 12:12 [email or web address]) PT-Bed Mobility Assessment Rolling Level of Assist 2 Person Assistance Scooting Scooting to Edge of Bed Contact Guard Assistance Scooting Up and Down in Bed Contact Guard Assistance PT-Transfer Assessment Sit to and From Stand Sit to and from Stand Minimal Assistance 2 Person Assistance Equipment Transfer Assistive Device Platform Walker Transfers Transfer Destination Bed Chair Bedside Commode Transfer Technique Stand Step Pivot Transfer Ability Level of Assist Minimal Assistance 1 Person Assistance Comments Mobility Comments Pt was in her chair with her on bedside upon tx session. Pt uses platform walker now to avoid WB for her L wrist fx. Pt performs sit to stand with PW min A from lowered reclining chair. Pt requires cues to facilitate hip hinge pattern. Pt con to present increased WB on her R LE due to pain LLE. Pt performs standing lateral weight shift with CGA and progress to amb to commode that is 8 feet away. Pt requires constant cues for foot placement during stand pivot transfer to commode. Pt does not show sign of LOB and acute distress. Gait Assessment Gait Gait Assistance Required: Contact Guard Assist Distance (Feet) 8 Able to Maintain Weight Bearing Status Yes During Gait Assistive Devices Assistive Device Gait Belt Platform Walker Gait Deviations General Gait Pattern Antalgic Decreased Stride Length Decreased Feet Clearance Step-to Gait Factors Limiting Gait Function Factors Limiting Gait Function Decreased Activity Tolerance Decreased Strength Pain Poor Balance Poor Safety Awareness Comments Gait Comments Pt amb from reclining chair to commode that is 8 feet away with FWW CGA x 2 p. Pt demonstrates antalgic gait pattern along with increased WB on R LE due to LLE pain. Pt requires constant cues to faciltitate B knee extension to maintain upright posture. Pt demonstates increase in L knee buckling towards the end of amb trail. Pt also requires cues for foot placements during turns. PT-Balance Assessment Sitting Balance and Reactions Static Sitting Balance Ability Normal Dynamic Sitting Balance Ability Good Standing Balance and Reactions Static Standing Balance Ability Good Dynamic Standing Balance Ability Fair M5 PT-IP Objective Assessments Start: 06/02/18 11:54 Freq: NEEDED Status: Active Protocol: Document 06/02/18 11:15 HH (Rec: 06/02/18 12:27 HH [email or web address]) Orientation Orientation/Cognition Level of Alertness Alert Language Function Ability Hard of Hearing Memory Description Short Term Impaired Comments Pt requires intermittent v.c for commands. Gross Range of Motion Upper Extremity ROM Assessment Within Functional Limits Lower Extremity ROM Assessment Right Impaired Strength Upper Extremity Strength Assessment Within Functional Limits Lower Extremity Strength Assessment Right Impaired Comments Strength Comments 2+/5 MMT Coordination Assessment Gross Coordination Gross Coordination WNL Sensation Assessment Sensation Gross Sensation WNL M6 PT-IP Treatment Start: 06/02/18 11:54 Freq: NEEDED Status: Active Protocol: Document 06/02/18 15:25 GGD (Rec: 06/02/18 16:43 GGD [id number]) Physical Therapy Treatment Exercises Exercises Ankle Pumps Seated Knee Flexion/Extension Education Education Provided Precautions Safety M7 PT-IP Assessment and Plan Start: 06/02/18 11:54 Freq: NEEDED Status: Active Protocol: Document 06/03/18 10:50 HH (Rec: 06/03/18 13:41 [email or web address]) PT Summary Assessment and Plan Potential Rehabilitation Potential Good Status of Condition at Evaluation Evolving Summary Impairments Pain ROM Strength Balance Bed Mobility Transfers Gait Activity Tolerance Progress Towards Goals Slow Progress due to Pain Slow Progress due to Medical Issues Slow Progress due to Activity Tolerance Assessment Summary Pt demonstrates increased ambulation distance and decreased assistance for transfer activity (CGA) since IE. However, pt is very anxious about her rehab potential and level of function in the future. Pt requires constant cues and support during rehab. Expect pt to reach her rehab goals prior to d/c. Communicated with pt's and RN that pt most likely will be d/c to SNF/ subacute rehab tomorrow. Goals Bed Mobility Goal Standby Assistance Transfer Goal Standby Assistance Gait Goal Standby Assistance Gait Distance 50 Days to Meet Goals 3 Frequency of Treatment Frequency Of Treatment Twice a Day Treatment Plan Physical Therapy Treatment Plan Bed Mobility Training Transfer Training Gait Training Therapeutic Exercise Balance Retraining Post Op Education Hot or Cold Pack Other Recommendations and Next Treatment gait training, transfer Focus training, CG training of bed mobility. Discharge Recommendations PT Discharge Recommendations SNF Rehab
[2018-06-03] MEDS: BISACODYL 10 MG SUPP PR (14:29)
--- NOTE | 2018-06-03 15:17 | PC.NURSE ---
Dayshift Note: Assumed care of pt from 1100 to 1500. Pt with uneventful shift. L hip dressing is CDI. Pulses palpable in L foot. Cap refill normal and sensation intact in LLE and LUE. Pt using oxycodone and tylenol for pain. Will continue to monitor, notify MD with changes.
--- NOTE | 2018-06-03 16:17 | PT.IPTN ---
Current Diagnoses Displaced intertrochanteric fracture of left femur, initial encounter for closed fracture (06/01/18) Surgery Performed Operation Date: 06/01/18 17:00 Actual Procedures p ORIF Hip DHS(Left) - Carlos Banda MD Physical Therapy Treatment Note M2 PT-IP Current Condition Start: 06/02/18 11:54 Freq: NEEDED Status: Active Protocol: Document 06/02/18 11:15 HH (Rec: 06/02/18 12:27 HH [email or web address]) Physical Therapy Current Condition Current Condition Evaluation Date 06/01/18 Treatment Diagnosis Post L hip ORIF, difficulty in walking, generalized muscle weakness Onset Date 05/31/18 Precautions Other Precautions WBAT Weight Bearing Status Weight Bearing Status Weight Bear as Tolerated M3 PT-IP Subjective Start: 06/02/18 11:54 Freq: NEEDED Status: Active Protocol: Document 06/03/18 16:15 HH (Rec: 06/03/18 16:17 HH [email or web address]) Subjective Physical Therapy Visit Type Type Patient Refusal Visit Start Time 16:15 Notes Pt has her family visited this afternoon and requested not to participate PT. Pt and RN reports pt has been mobilized from EOB to commode a few times today. Communited with pt and her family to stay mobilized as tolerated. M4 PT-IP Mobility and Gait Start: 06/02/18 11:54 Freq: NEEDED Status: Active Protocol: Document 06/03/18 10:50 HH (Rec: 06/03/18 12:12 [email or web address]) PT-Bed Mobility Assessment Rolling Level of Assist 2 Person Assistance Scooting Scooting to Edge of Bed Contact Guard Assistance Scooting Up and Down in Bed Contact Guard Assistance PT-Transfer Assessment Sit to and From Stand Sit to and from Stand Minimal Assistance 2 Person Assistance Equipment Transfer Assistive Device Platform Walker Transfers Transfer Destination Bed Chair Bedside Commode Transfer Technique Stand Step Pivot Transfer Ability Level of Assist Minimal Assistance 1 Person Assistance Comments Mobility Comments Pt was in her chair with her on bedside upon tx session. Pt uses platform walker now to avoid WB for her L wrist fx. Pt performs sit to stand with PW min A from lowered reclining chair. Pt requires cues to facilitate hip hinge pattern. Pt con to present increased WB on her R LE due to pain LLE. Pt performs standing lateral weight shift with CGA and progress to amb to commode that is 8 feet away. Pt requires constant cues for foot placement during stand pivot transfer to commode. Pt does not show sign of LOB and acute distress. Gait Assessment Gait Gait Assistance Required: Contact Guard Assist Distance (Feet) 8 Able to Maintain Weight Bearing Status Yes During Gait Assistive Devices Assistive Device Gait Belt Platform Walker Gait Deviations General Gait Pattern Antalgic Decreased Stride Length Decreased Feet Clearance Step-to Gait Factors Limiting Gait Function Factors Limiting Gait Function Decreased Activity Tolerance Decreased Strength Pain Poor Balance Poor Safety Awareness Comments Gait Comments Pt amb from reclining chair to commode that is 8 feet away with FWW CGA x 2 p. Pt demonstrates antalgic gait pattern along with increased WB on R LE due to LLE pain. Pt requires constant cues to faciltitate B knee extension to maintain upright posture. Pt demonstates increase in L knee buckling towards the end of amb trail. Pt also requires cues for foot placements during turns. PT-Balance Assessment Sitting Balance and Reactions Static Sitting Balance Ability Normal Dynamic Sitting Balance Ability Good Standing Balance and Reactions Static Standing Balance Ability Good Dynamic Standing Balance Ability Fair M5 PT-IP Objective Assessments Start: 06/02/18 11:54 Freq: NEEDED Status: Active Protocol: Document 06/02/18 11:15 HH (Rec: 06/02/18 12:27 HH [email or web address]) Orientation Orientation/Cognition Level of Alertness Alert Language Function Ability Hard of Hearing Memory Description Short Term Impaired Comments Pt requires intermittent v.c for commands. Gross Range of Motion Upper Extremity ROM Assessment Within Functional Limits Lower Extremity ROM Assessment Right Impaired Strength Upper Extremity Strength Assessment Within Functional Limits Lower Extremity Strength Assessment Right Impaired Comments Strength Comments 2+/5 MMT Coordination Assessment Gross Coordination Gross Coordination WNL Sensation Assessment Sensation Gross Sensation WNL M6 PT-IP Treatment Start: 06/02/18 11:54 Freq: NEEDED Status: Active Protocol: Document 06/02/18 15:25 GGD (Rec: 06/02/18 16:43 GGD [id number]) Physical Therapy Treatment Exercises Exercises Ankle Pumps Seated Knee Flexion/Extension Education Education Provided Precautions Safety M7 PT-IP Assessment and Plan Start: 06/02/18 11:54 Freq: NEEDED Status: Active Protocol: Document 06/03/18 10:50 HH (Rec: 06/03/18 13:41 HH [email or web address]) PT Summary Assessment and Plan Potential Rehabilitation Potential Good Status of Condition at Evaluation Evolving Summary Impairments Pain ROM Strength Balance Bed Mobility Transfers Gait Activity Tolerance Progress Towards Goals Slow Progress due to Pain Slow Progress due to Medical Issues Slow Progress due to Activity Tolerance Assessment Summary Pt demonstrates increased ambulation distance and decreased assistance for transfer activity (CGA) since IE. However, pt is very anxious about her rehab potential and level of function in the future. Pt requires constant cues and support during rehab. Expect pt to reach her rehab goals prior to d/c. Communicated with pt's and RN that pt most likely will be d/c to SNF/ subacute rehab tomorrow. Goals Bed Mobility Goal Standby Assistance Transfer Goal Standby Assistance Gait Goal Standby Assistance Gait Distance 50 Days to Meet Goals 3 Frequency of Treatment Frequency Of Treatment Twice a Day Treatment Plan Physical Therapy Treatment Plan Bed Mobility Training Transfer Training Gait Training Therapeutic Exercise Balance Retraining Post Op Education Hot or Cold Pack Other Recommendations and Next Treatment gait training, transfer Focus training, CG training of bed mobility. Discharge Recommendations PT Discharge Recommendations SNF Rehab
[2018-06-03] MEDS: hydrOXYzine pamoate 25 MG CAPSULE PO (17:47)
[2018-06-03] MEDS: SODIUM CHLORIDE 0.9% FLUSH 10 ML IV (21:13)
[2018-06-04] VITALS (8 sets, daily range): BP systolic 105–134; BP diastolic 56–69; PULSE 85–98; RESP 14–18; TEMP 36.8–37.8; O2SAT 95–100
[2018-06-04] MEDS: OXYCODONE IR 10 MG TABLET PO ×2 (01:00→04:35)
[2018-06-04] MEDS: hydrOXYzine pamoate 25 MG CAPSULE PO (01:31)
[2018-06-04] MEDS: LEVOTHYROXINE 100 MCG TABLET PO (06:44)
[2018-06-04] MEDS: buPROPion XL 150 MG TAB 300 MG PO (09:18)
[2018-06-04] MEDS: ACETAMINOPHEN 325 MG TABLET 975 MG PO ×3 (09:18→21:14)
[2018-06-04] MEDS: ENOXAPARIN 40 MG/0.4 ML SYRINGE SUBCUT (09:18)
[2018-06-04] MEDS: DOCUSATE 100 MG CAPSULE PO ×2 (09:18→21:14)
[2018-06-04] MEDS: PRAMIPEXOLE 0.125 MG TABLET 0.375 MG PO ×3 (09:19→21:14)
[2018-06-04] MEDS: LORazepam 0.5 MG TABLET PO ×3 (09:22→21:14)
[2018-06-04] MEDS: OXYCODONE IR 5 MG TABLET PO ×3 (09:22→21:13)
--- NOTE | 2018-06-04 10:35 | PC.NURSE ---
pt tearful and weepy intermittently - but doing well- requires frequent calming and positive reinforcement but physically much stronger- dressing to left hip is clean dry intact and she has + cms to left lower extremity and continues to wear splint to right wrist- taking adequate po and moving both bowels and bladder
--- NOTE | 2018-06-04 10:50 | P.PN_ITS ---
Subjective Date Patient Seen: 06/04/18 Time Patient Seen: 09:48 Interval history: The patient is feeling much better today. [place] somewhat stronger. Has decreased pain in the left hip since surgery. Left wrist is very annoying for him to wear the brace. Shows fair amount of anxiety about life in general but also about her rehab. Has been working physical therapy and progressing reasonably well. Exam Vital Signs (past 8 hours): - 06/04/18 05:00 06/04/18 07:45 06/04/18 07:50 Temperature 98.2 F 98.8 F Pulse Rate 85 98 H Respiratory Rate 18 16 Blood Pressure 134/69 133/69 Pulse Oximetry 100 98 95 Oxygen Delivery Method Room Air Oxygen Flow Rate 0 Narrative Exam Narrative: Sitting in a chair talking on the telephone appearing in no distress left wrist brace is in place. Lungs are clear heart regular rhythm abdomen is benign Objective Labs Result Diagrams: 06/02/18 04:42 06/01/18 06:00 Labs: Labs reviewed as above Assessment & Plan Plan: Assessment/Plan Narrative: 1. Status post left hip fracture ORIF as per Orthopedics. Para 2. Status post left wrist fracture stable in brace as per Orthopedics. 3. Chronic anxiety reasonably well controlled on current medication. Para 4. Patient still a bit unsteady. Over benefit physical therapy today and presume will be discharged hour care to center tomorrow. As far as I can tell she has not been seen by the orthopedic service yet. today yet to be determined. Quality VTE Deep Vein Thrombosis/Pulmonary Embolism Present on Admission: No
--- NOTE | 2018-06-04 12:20 | PT.IPTN ---
Current Diagnoses Displaced intertrochanteric fracture of left femur, initial encounter for closed fracture (06/01/18) Surgery Performed Operation Date: 06/01/18 17:00 Actual Procedures p ORIF Hip DHS(Left) - Carlos Banda MD Physical Therapy Treatment Note M2 PT-IP Current Condition Start: 06/02/18 11:54 Freq: NEEDED Status: Active Protocol: Document 06/04/18 12:20 RCC (Rec: 06/04/18 12:59 [facility] [id number]) Physical Therapy Current Condition Current Condition Evaluation Date 06/01/18 Treatment Diagnosis Post L hip ORIF, difficulty in walking, generalized muscle weakness Onset Date 05/31/18 Precautions Other Precautions WBAT for LLE Pt has left distal radius suspicious for nondisplaced fracture on x-ray, therefore to opt for NWB to left wrist until able to clarify with doctor. Pt wearing brace to left hand. Weight Bearing Status Weight Bearing Status Weight Bear as Tolerated Allowed Weight Bearing Amount (enter % NWB for left wrist until or #) (%) clarification from doctor. M3 PT-IP Subjective Start: 06/02/18 11:54 Freq: NEEDED Status: Active Protocol: Document 06/04/18 12:20 RCC (Rec: 06/04/18 12:59 [facility] [id number]) Subjective Physical Therapy Visit Type Type Treatment Note Visit Start Time 11:50 Visit Stop Time 12:20 Total Visit Minutes 30 Number of QUALITY IMPROVEMENT CONSULTANT Visits 0 Physical Therapy Visit Comments Patient Comments pt does know that PT is important, wants to progress. M4 PT-IP Mobility and Gait Start: 06/02/18 11:54 Freq: NEEDED Status: Active Protocol: Document 06/04/18 12:20 RCC (Rec: 06/04/18 12:59 [facility] [id number]) PT-Transfer Assessment Sit to and From Stand Sit to and from Stand Moderate Assistance 1 Person Assistance Equipment Transfer Assistive Device Gait Belt Platform Walker Transfers Transfer Destination Chair Transfer Technique Stand Step Pivot Transfer Ability Level of Assist Contact Guard Assistance 1 Person Assistance Gait Assessment Gait Gait Assistance Required: Contact Guard Assist Distance (Feet) 16 Assistive Devices Assistive Device Gait Belt Platform Walker Gait Deviations General Gait Pattern Antalgic Decreased Stride Length Decreased Feet Clearance Flexed Trunk Narrow Based Gait Step-to Gait Factors Limiting Gait Function Factors Limiting Gait Function Decreased Activity Tolerance Decreased Strength Pain Poor Balance Comments Gait Comments Pt able to turn to the L x2 with gait in room. Requires increased amount of time and coaxing to complete tasks. M5 PT-IP Objective Assessments Start: 06/02/18 11:54 Freq: NEEDED Status: Active Protocol: Document 06/02/18 11:15 HH (Rec: 06/02/18 12:27 HH [email or web address]) Orientation Orientation/Cognition Level of Alertness Alert Language Function Ability Hard of Hearing Memory Description Short Term Impaired Comments Pt requires intermittent v.c for commands. Gross Range of Motion Upper Extremity ROM Assessment Within Functional Limits Lower Extremity ROM Assessment Right Impaired Strength Upper Extremity Strength Assessment Within Functional Limits Lower Extremity Strength Assessment Right Impaired Comments Strength Comments 2+/5 MMT Coordination Assessment Gross Coordination Gross Coordination WNL Sensation Assessment Sensation Gross Sensation WNL M6 PT-IP Treatment Start: 06/02/18 11:54 Freq: NEEDED Status: Active Protocol: Document 06/02/18 15:25 GGD (Rec: 06/02/18 16:43 GGD [id number]) Physical Therapy Treatment Exercises Exercises Ankle Pumps Seated Knee Flexion/Extension Education Education Provided Precautions Safety M7 PT-IP Assessment and Plan Start: 06/02/18 11:54 Freq: NEEDED Status: Active Protocol: Document 06/04/18 12:20 RCC (Rec: 06/04/18 12:59 [facility] [id number]) PT Summary Assessment and Plan Summary Progress Towards Goals Slow Progress due to Pain Slow Progress due to Activity Tolerance Slow Progress - Other Assessment Summary Pt able to ambulate in room with platform FWW x16 ft, family in room for support. Pt demonstrated step-to gait pattern with ambulation. She continues to require moderate assist to stand from chair, and unable to control descent when going from stand to sit without Mod assist. The burden of care is too high at this point for the pt to be safely managed at home, but is an excellent candidate for SNF rehabilitation. Goals Bed Mobility Goal Standby Assistance Transfer Goal Standby Assistance Gait Goal Standby Assistance Gait Distance 50 Days to Meet Goals 3 Frequency of Treatment Frequency Of Treatment Twice a Day Treatment Plan Other Recommendations and Next Treatment gait as tolerated, review sit< Focus ->stand Recommendations To Nursing Amount of Assist Needed 2 Person Assist Discharge Recommendations PT Discharge Recommendations SNF Rehab
--- NOTE | 2018-06-04 14:50 | PT.IPTN ---
Current Diagnoses Displaced intertrochanteric fracture of left femur, initial encounter for closed fracture (06/01/18) Surgery Performed Operation Date: 06/01/18 17:00 Actual Procedures p ORIF Hip DHS(Left) - Carlos Banda MD Physical Therapy Treatment Note M2 PT-IP Current Condition Start: 06/02/18 11:54 Freq: NEEDED Status: Active Protocol: Document 06/04/18 12:20 RCC (Rec: 06/04/18 12:59 [facility] [id number]) Physical Therapy Current Condition Current Condition Evaluation Date 06/01/18 Treatment Diagnosis Post L hip ORIF, difficulty in walking, generalized muscle weakness Onset Date 05/31/18 Precautions Other Precautions WBAT for LLE Pt has left distal radius suspicious for nondisplaced fracture on x-ray, therefore to opt for NWB to left wrist until able to clarify with doctor. Pt wearing brace to left hand. Weight Bearing Status Weight Bearing Status Weight Bear as Tolerated Allowed Weight Bearing Amount (enter % NWB for left wrist until or #) (%) clarification from doctor. M3 PT-IP Subjective Start: 06/02/18 11:54 Freq: NEEDED Status: Active Protocol: Document 06/04/18 14:50 GGD (Rec: 06/04/18 15:56 GGD [email or web address]) Subjective Physical Therapy Visit Type Type Treatment Note Visit Start Time 14:20 Visit Stop Time 14:50 Total Visit Minutes 30 Number of INTERNET SITE DESIGNER Visits 1 Physical Therapy Visit Comments Patient Comments Pt states she hopes she can walk farther. Therapy Pain Assessment Pain When Pain Assessed During Mobility Pain Present Pain Present Pain Reported M4 PT-IP Mobility and Gait Start: 06/02/18 11:54 Freq: NEEDED Status: Active Protocol: Document 06/04/18 14:50 GGD (Rec: 06/04/18 15:56 GGD [email or web address]) PT-Transfer Assessment Sit to and From Stand Sit to and from Stand Minimal Assistance 1 Person Assistance Use of Upper Extremities Equipment Transfer Assistive Device Gait Belt Platform Walker Transfers Transfer Destination Chair Transfer Ability Level of Assist Contact Guard Assistance 1 Person Assistance Gait Assessment Gait Gait Assistance Required: Contact Guard Assist Distance (Feet) 25 Able to Maintain Weight Bearing Status Yes During Gait Assistive Devices Assistive Device Gait Belt Platform Walker Orthotic/Prosthetic Devices or Brace: Yes Gait Deviations General Gait Pattern Antalgic Decreased Stride Length Decreased Feet Clearance Flexed Trunk Narrow Based Gait Step-to Gait Factors Limiting Gait Function Factors Limiting Gait Function Decreased Activity Tolerance Decreased Strength Pain Poor Balance Comments Gait Comments Pt need cues for gait and time to complate tasks. M5 PT-IP Objective Assessments Start: 06/02/18 11:54 Freq: NEEDED Status: Active Protocol: Document 06/02/18 11:15 HH (Rec: 06/02/18 12:27 HH [email or web address]) Orientation Orientation/Cognition Level of Alertness Alert Language Function Ability Hard of Hearing Memory Description Short Term Impaired Comments Pt requires intermittent v.c for commands. Gross Range of Motion Upper Extremity ROM Assessment Within Functional Limits Lower Extremity ROM Assessment Right Impaired Strength Upper Extremity Strength Assessment Within Functional Limits Lower Extremity Strength Assessment Right Impaired Comments Strength Comments 2+/5 MMT Coordination Assessment Gross Coordination Gross Coordination WNL Sensation Assessment Sensation Gross Sensation WNL M6 PT-IP Treatment Start: 06/02/18 11:54 Freq: NEEDED Status: Active Protocol: Document 06/04/18 14:50 GGD (Rec: 06/04/18 15:56 GGD [email or web address]) Physical Therapy Treatment Exercises Exercises Ankle Pumps Gluteal Sets Quad Sets Seated Knee Flexion/Extension Education Education Provided Safety M7 PT-IP Assessment and Plan Start: 06/02/18 11:54 Freq: NEEDED Status: Active Protocol: Document 06/04/18 14:50 GGD (Rec: 06/04/18 15:56 GGD [email or web address]) PT Summary Assessment and Plan Summary Assessment Summary Pt able to progress gait distance. She did need cues for gait sequencing. She need assist with sit to stand control. She would benefit from SNF rehab to improve strength and mobility. Frequency of Treatment Frequency Of Treatment Twice a Day Treatment Plan Other Recommendations and Next Treatment gait as tolerated, review sit< Focus ->stand Recommendations To Nursing Amount of Assist Needed 2 Person Assist Discharge Recommendations PT Discharge Recommendations SNF Rehab
--- NOTE | 2018-06-04 16:22 | OT.IP.TRT ---
Current Diagnoses Displaced intertrochanteric fracture of left femur, initial encounter for closed fracture (06/01/18) Surgery Performed Operation Date: 06/01/18 17:00 Actual Procedures p ORIF Hip DHS(Left) - Carlos Banda MD Occupational Therapy Treatment Note M2 OT-IP Current Condition Start: 06/01/18 09:15 Freq: Status: Active Protocol: Document 06/02/18 15:05 [facility] (Rec: 06/02/18 17:59 [facility] [id number]) Occupational Therapy Current Condition Current Condition Evaluation Date 06/02/18 Treatment Diagnosis Displaced intertrochanteric fracture of left femur Diagnosis Onset Date 06/01/18 Post Operative Precautions Other Precautions WBAT for LLE Pt has left distal radius suspicious for nondisplaced fracture on x-ray, therefore to opt for NWB to left wrist until able to clarify with doctor. Pt wearing brace to left hand. Weight Bearing Status Weight Bearing Status Weight Bear as Tolerated Allowed Weight Bearing Amount (enter % NWB for left wrist until or #) (%) clarification from doctor. M3 OT- IP Subjective and Pain Start: 06/01/18 09:15 Freq: Status: Active Protocol: Document 06/04/18 16:19 [facility] (Rec: 06/04/18 16:22 [facility] [id number]) OT- Subjective Occupational Therapy Visit Type Type Administrative Note Notes Pt seen by PT therapy twice today for mobility needs, OT not able to see pt today, nursing able to see pt for ADL needs.
[2018-06-04] MEDS: SODIUM CHLORIDE 0.9% FLUSH 10 ML IV (21:13)
[2018-06-05 00:24] VITALS: BP 150/58; PULSE 91; RESP 17; TEMP 37.3; O2SAT 96; O2SAT 98
[2018-06-05] MEDS: LEVOTHYROXINE 100 MCG TABLET PO (05:53)
[2018-06-05] MEDS: ACETAMINOPHEN 325 MG TABLET 975 MG PO ×2 (05:54→13:00)
[2018-06-05 05:55] VITALS: BP 143/84; PULSE 85; RESP 17; TEMP 37.2; O2SAT 99
[2018-06-05] MEDS: hydrOXYzine pamoate 25 MG CAPSULE PO (05:56)
[2018-06-05] MEDS: LORazepam 0.5 MG TABLET PO (08:07)
[2018-06-05] MEDS: buPROPion XL 150 MG TAB 300 MG PO (08:07)
[2018-06-05] MEDS: PRAMIPEXOLE 0.125 MG TABLET 0.375 MG PO (08:08)
[2018-06-05] MEDS: ENOXAPARIN 40 MG/0.4 ML SYRINGE SUBCUT (08:08)
[2018-06-05] MEDS: SODIUM CHLORIDE 0.9% FLUSH 10 ML IV (08:09)
[2018-06-05 08:26] VITALS: BP 128/67; PULSE 85; RESP 16; TEMP 36.9; O2SAT 97
[2018-06-05 09:06] VITALS: O2SAT 97
[2018-06-05] MEDS: ALENDRONATE 70 MG TABLET PO (09:29)
--- NOTE | 2018-06-05 10:58 | PM.DS.1 ---
History of Present Illness Date Patient Seen: 06/05/18 Time Patient Seen: 08:59 Chief complaint: GLF left hip pain Narrative: Patient feeling much better today had has not required any narcotic for pain relief. Minimal pain of her left wrist. Left hip also minimal pain. Ambulating reasonably well. Feels stable and ready to be discharged to [facility] as per plan. Discharge Providers Date of admission: 06/01/18 07:29 Primary care physician: Junior Huerta MD Consults: 06/01/18 08:33 Consult to Discharge Planning Routine Comment: Consult to Occupational Therapy Evaluate & Treat Comment: Physician Instructions: Evaluate and treat Consult to Physical Therapy Evaluate & Treat Comment: Physician Instructions: Evaluate and Treat 06/01/18 09:30 Consult to Dietitian, Adult Routine Comment: Reason For Exam: per screening Consult to Pastoral Services Routine Comment: per request 06/01/18 18:59 Consult to Discharge Planning Routine Comment: Consult to Physical Therapy Evaluate & Treat Comment: Physician Instructions: post op RAMAN protocol Consult to Respiratory Therapy Evaluate & Treat Comment: Physician Instructions: Evaluate and treat Discharge provider: Claudio Nolasco MD Discharge Date: 06/05/18 Summary Discharge Diagnosis: 1. Status post left hip fracture. 2. Status post ORIF left hip fracture. 3. Fracture distal radial styloid on left. Stable 4. Chronic anxiety disorder stable. 5. Patient presumably has osteoporosis. Have started her on Fosamax 70 mg once a week. 6. Hypothyroidism stable. 7. Restless leg stable. Exam Vital Signs (past 8 hours): - 06/05/18 05:55 06/05/18 08:26 06/05/18 09:06 Temperature 98.9 F 98.5 F Pulse Rate 85 85 Respiratory Rate 17 16 Blood Pressure 143/84 H 128/67 Pulse Oximetry 99 97 97 Oxygen Delivery Method Room Air Oxygen Flow Rate 0 Narrative Exam Narrative: Patient is sitting upright in bedside chair looks in no distress verbal awake and oriented x3. Lungs are clear heart regular rhythm Objective Labs Result Diagrams: 06/02/18 04:42 06/01/18 06:00 Discharge Plan Discharge Plan Patient Disposition: SNF Transfer to: [facility] Under care of provider: staff Transportation: Wheelchair Diagnostic studies (x-ray, etc.): as per ortho Consult as needed: Dental, Hearing, Mental health, Podiatry and Vision Discharge comment: splint left wrist I certify the postop hospital [facility] care is medically necessary on a continuing basis for any conditions for which he/ she received care during this hospitalization.: Yes The receiving facility has agreed to accept transfer and provide medical treatment.: Yes Discharge Med Rec/Prescriptions Prescriptions: New lorazepam 0.5 mg Tablet 0.5 mg PO TID Qty: 100 RF: 0 alendronate 70 mg Tablet 70 mg PO Burt@0730 Qty: 100 RF: 0 Continue bupropion HCl 150 mg tablet extended release 24 hr 300 mg PO 0800 90 Days RF: 0 flaxseed oil 1,000 mg Capsule 2,000 mg PO DAILY Qty: 0 RF: 0 levothyroxine 100 mcg tablet 100 mcg PO QDAY Qty: 90 RF: 3 lorazepam 1 mg tablet 0.5 mg PO QID RF: 0 multivitamin Tablet 1 tab PO DAILY RF: 0 pramipexole 0.125 mg tablet 0.375 mg PO TID RF: 0 furosemide 40 mg tablet 40 mg PO DAILY RF: 0 potassium chloride 10 mEq capsule, extended release 10 meq PO DAILY RF: 0 clonidine HCl 0.1 mg tablet 0.1 mg PO DAILY RF: 0 cholestyramine (with sugar) [Questran] 4 gram powder in packet 4 g PO DAILY RF: 0 ascorbic acid (vitamin C) [Vitamin C] 500 mg Tablet 500 mg PO DAILY RF: 0 vitamin E 400 unit Capsule 400 unit PO DAILY RF: 0 cholecalciferol (vitamin D3) [Vitamin D3] 1,000 unit Capsule 3,000 unit PO DAILY RF: 0 glucosamine sulfate 1,000 mg Capsule 1,000 mg PO DAILY RF: 0 Calcium 1 tab PO DAILY RF: 0 Vitamin B 100 mg PO DAILY RF: 0 Disabled Parking Permit 1 ea miscellaneous DIRECTED RF: 0 Follow up/Referrals: Junior Huerta MD [Primary Care Provider] - Carlos Banda MD [Physician] - 2 Weeks (Please schedule follow up appt with Dr Banda at [facility] in two weeks from surgery day.) Discharge Health Status Brief summary of current health status: fx left hip. s/p orif fx left radial styloid Multidrug resistant organism: No MDRO MDRO Verified by culture: No Precautions: [place] Provider Discharge Instructions Diet: Diet as Tolerated Liquid consistency: Normal/Thin Food texture: Regular Activity: as per ortho Special Rehabilitation Services Reason for rehabilitation: Post-operative therapy Rehab type: Physical therapy and Occupational therapy Discharge Data Primary Care Provider: Junior Huerta Attending Provider: Junior Huerta Admit Date/Time: 06/01/18 07:29 Quality VTE Deep Vein Thrombosis/Pulmonary Embolism Present on Admission: No
--- NOTE | 2018-06-05 11:02 | P.DS_ITS ---
History of Present Illness Date Patient Seen: 06/05/18 Time Patient Seen: 08:59 Chief complaint: GLF left hip pain Narrative: Patient feeling much better today had has not required any narcotic for pain relief. Minimal pain of her left wrist. Left hip also minimal pain. Ambulating reasonably well. Feels stable and ready to be discharged to halfway facility as per plan. Discharge Providers Date of admission: 06/01/18 07:29 Primary care physician: Junior Huerta MD Consults: 06/01/18 08:33 Consult to Discharge Planning Routine Comment: Consult to Occupational Therapy Evaluate & Treat Comment: Physician Instructions: Evaluate and treat Consult to Physical Therapy Evaluate & Treat Comment: Physician Instructions: Evaluate and Treat 06/01/18 09:30 Consult to Dietitian, Adult Routine Comment: Reason For Exam: per screening Consult to Pastoral Services Routine Comment: per request 06/01/18 18:59 Consult to Discharge Planning Routine Comment: Consult to Physical Therapy Evaluate & Treat Comment: Physician Instructions: post op RAMAN protocol Consult to Respiratory Therapy Evaluate & Treat Comment: Physician Instructions: Evaluate and treat Discharge provider: Claudio Nolasco MD Discharge Date: 06/05/18 Summary Discharge Diagnosis: 1. Status post left hip fracture. 2. Status post ORIF left hip fracture. 3. Fracture distal radial styloid on left. Stable 4. Chronic anxiety disorder stable. 5. Patient presumably has osteoporosis. Have started her on Fosamax 70 mg once a week. 6. Hypothyroidism stable. 7. Restless leg stable. Exam Vital Signs (past 8 hours): - 06/05/18 05:55 06/05/18 08:26 06/05/18 09:06 Temperature 98.9 F 98.5 F Pulse Rate 85 85 Respiratory Rate 17 16 Blood Pressure 143/84 H 128/67 Pulse Oximetry 99 97 97 Oxygen Delivery Method Room Air Oxygen Flow Rate 0 Narrative Exam Narrative: Patient is sitting upright in bedside chair looks in no distress verbal awake and oriented x3. Lungs are clear heart regular rhythm Objective Labs Result Diagrams: 06/02/18 04:42 06/01/18 06:00 Discharge Plan Discharge Plan Patient Disposition: SNF Transfer to: [facility] Under care of provider: staff Transportation: Wheelchair Diagnostic studies (x-ray, etc.): as per ortho Consult as needed: Dental, Hearing, Mental health, Podiatry and Vision Discharge comment: splint left wrist I certify the postop hospital halfway care is medically necessary on a continuing basis for any conditions for which he/ she received care during this hospitalization.: Yes The receiving facility has agreed to accept transfer and provide medical treatment.: Yes Discharge Med Rec/Prescriptions Prescriptions: New lorazepam 0.5 mg Tablet 0.5 mg PO TID Qty: 100 RF: 0 alendronate 70 mg Tablet 70 mg PO Burt@0730 Qty: 100 RF: 0 Continue bupropion HCl 150 mg tablet extended release 24 hr 300 mg PO 0800 90 Days RF: 0 flaxseed oil 1,000 mg Capsule 2,000 mg PO DAILY Qty: 0 RF: 0 levothyroxine 100 mcg tablet 100 mcg PO QDAY Qty: 90 RF: 3 lorazepam 1 mg tablet 0.5 mg PO QID RF: 0 multivitamin Tablet 1 tab PO DAILY RF: 0 pramipexole 0.125 mg tablet 0.375 mg PO TID RF: 0 furosemide 40 mg tablet 40 mg PO DAILY RF: 0 potassium chloride 10 mEq capsule, extended release 10 meq PO DAILY RF: 0 clonidine HCl 0.1 mg tablet 0.1 mg PO DAILY RF: 0 cholestyramine (with sugar) [Questran] 4 gram powder in packet 4 g PO DAILY RF: 0 ascorbic acid (vitamin C) [Vitamin C] 500 mg Tablet 500 mg PO DAILY RF: 0 vitamin E 400 unit Capsule 400 unit PO DAILY RF: 0 cholecalciferol (vitamin D3) [Vitamin D3] 1,000 unit Capsule 3,000 unit PO DAILY RF: 0 glucosamine sulfate 1,000 mg Capsule 1,000 mg PO DAILY RF: 0 Calcium 1 tab PO DAILY RF: 0 Vitamin B 100 mg PO DAILY RF: 0 Disabled Parking Permit 1 ea miscellaneous DIRECTED RF: 0 Follow up/Referrals: Junior Huerta MD [Primary Care Provider] - Carlos Banda MD [Physician] - 2 Weeks (Please schedule follow up appt with Dr Banda at [facility] in two weeks from surgery day.) Discharge Health Status Brief summary of current health status: fx left hip. s/p orif fx left radial styloid Multidrug resistant organism: No MDRO MDRO Verified by culture: No Precautions: [place] Provider Discharge Instructions Diet: Diet as Tolerated Liquid consistency: Normal/Thin Food texture: Regular Activity: as per ortho Special Rehabilitation Services Reason for rehabilitation: Post-operative therapy Rehab type: Physical therapy and Occupational therapy Discharge Data Primary Care Provider: Junior Huerta Attending Provider: Junior Huerta Admit Date/Time: 06/01/18 07:29 Quality VTE Deep Vein Thrombosis/Pulmonary Embolism Present on Admission: No
--- NOTE | 2018-06-05 11:03 | CM.DPC ---
Addendum entered by GHULAM Pacheco 06/05/18 11:47: ADD: [facility] faxed d/c summary, Ortho prog note, and updated signed med rec to [facility] for review. [facility] met bedside with pt, spouse, and two adult Dtrs and explained role and they confirmed they are agreeable with d/c to [facility] today. SW answered questions regarding d/c and SNF. SW provided pt with her MCR Rights and pt and family acknowledged understanding and signed her Medicare Message. [place] updated RN. Plan: Patient to d/c to [facility] today via w/c van at 1300. GHULAM Pacheco Original Note: DCP Discharge to SNF Per MD, pt is medically stable to d/c to SNF today after Orthopedic Surgeon sees the patient. Orthopedic Surgeon to round on patient this morning. [facility] faxed PASRR, signed med rec, and script to [facility] admissions [facility] this morning and called and confirmed that they can transport via w/c at about 1300. [place] introduced self to pt again and family bedside but pt working with PT prior to d/c and SW to come back after Ortho MD sees patient and family. [place] updated RN. Plan: SW to follow for patient d/c to [facility] today around 1300 after Ortho MD rounds on pt and [facility] confirms plan with pt and family. GHULAM Pacheco
--- NOTE | 2018-06-05 11:10 | PM.PN.1 ---
Exam Vital Signs (past 8 hours): - 06/05/18 05:55 06/05/18 08:26 06/05/18 09:06 Temperature 98.9 F 98.5 F Pulse Rate 85 85 Respiratory Rate 17 16 Blood Pressure 143/84 H 128/67 Pulse Oximetry 99 97 97 Oxygen Delivery Method Room Air Oxygen Flow Rate 0 Objective Labs Result Diagrams: 06/02/18 04:42 06/01/18 06:00 Assessment & Plan Plan: Assessment/Plan Narrative: Patient is post op s/p Plating of proximal femur for fx. Pt is neurovascularly intact w/o s/s of DVT. Patient is being discharged to SNF today. Follow up in 2 weeks. Quality VTE Deep Vein Thrombosis/Pulmonary Embolism Present on Admission: No
--- NOTE | 2018-06-05 11:49 | PT.IPTN ---
Current Diagnoses Displaced intertrochanteric fracture of left femur, initial encounter for closed fracture (06/01/18) Surgery Performed Operation Date: 06/01/18 17:00 Actual Procedures p ORIF Hip DHS(Left) - Carlos Banda MD Physical Therapy Treatment Note M2 PT-IP Current Condition Start: 06/02/18 11:54 Freq: NEEDED Status: Active Protocol: Document 06/04/18 12:20 [facility] (Rec: 06/04/18 12:59 [facility] [id number]) Physical Therapy Current Condition Current Condition Evaluation Date 06/01/18 Treatment Diagnosis Post L hip ORIF, difficulty in walking, generalized muscle weakness Onset Date 05/31/18 Precautions Other Precautions WBAT for LLE Pt has left distal radius suspicious for nondisplaced fracture on x-ray, therefore to opt for NWB to left wrist until able to clarify with doctor. Pt wearing brace to left hand. Weight Bearing Status Weight Bearing Status Weight Bear as Tolerated Allowed Weight Bearing Amount (enter % NWB for left wrist until or #) (%) clarification from doctor. M3 PT-IP Subjective Start: 06/02/18 11:54 Freq: NEEDED Status: Active Protocol: Document 06/05/18 10:27 [facility] (Rec: 06/05/18 11:48 [facility] [id number]) Subjective Physical Therapy Visit Type Type Treatment Note Visit Start Time 10:27 Visit Stop Time 10:50 Total Visit Minutes 23 Notes Pt family present during tx. Number of [employer] MANAGER Visits 2 Physical Therapy Visit Comments Patient Comments Pt willing to ambulate. Therapy Pain Assessment Pain When Pain Assessed During Mobility Pain Present Pain Present Pain Reported Location Left Hip Intensity 2 Scale Used Numeric (1 - 10) M4 PT-IP Mobility and Gait Start: 06/02/18 11:54 Freq: NEEDED Status: Active Protocol: Document 06/05/18 10:27 [facility] (Rec: 06/05/18 11:48 [facility] [id number]) PT-Transfer Assessment Sit to and From Stand Sit to and from Stand Minimal Assistance 1 Person Assistance Use of Upper Extremities Transfers Transfer Destination Chair Transfer Ability Level of Assist Contact Guard Assistance 1 Person Assistance Gait Assessment Gait Gait Assistance Required: Contact Guard Assist Distance (Feet) 25 Able to Maintain Weight Bearing Status Yes During Gait Assistive Devices Assistive Device Gait Belt Platform Walker Orthotic/Prosthetic Devices or Brace: Yes Gait Deviations General Gait Pattern Antalgic Decreased Stride Length Decreased Feet Clearance Flexed Trunk Narrow Based Gait Step-to Gait Factors Limiting Gait Function Factors Limiting Gait Function Decreased Activity Tolerance Decreased Strength Pain Poor Balance Comments Gait Comments Pt need cues for sequencing steps and walker use.Pt continues to need increased time to complete tasks. M5 PT-IP Objective Assessments Start: 06/02/18 11:54 Freq: NEEDED Status: Active Protocol: Document 06/02/18 11:15 [facility] (Rec: 06/02/18 12:27 HH [id number]) Orientation Orientation/Cognition Level of Alertness Alert Language Function Ability Hard of Hearing Memory Description Short Term Impaired Comments Pt requires intermittent v.c for commands. Gross Range of Motion Upper Extremity ROM Assessment Within Functional Limits Lower Extremity ROM Assessment Right Impaired Strength Upper Extremity Strength Assessment Within Functional Limits Lower Extremity Strength Assessment Right Impaired Comments Strength Comments 2+/5 MMT Coordination Assessment Gross Coordination Gross Coordination WNL Sensation Assessment Sensation Gross Sensation WNL M6 PT-IP Treatment Start: 06/02/18 11:54 Freq: NEEDED Status: Active Protocol: Document 06/05/18 10:27 [facility] (Rec: 06/05/18 11:48 CLB [id number]) Physical Therapy Treatment Exercises Exercises Ankle Pumps Gluteal Sets Quad Sets Education Education Provided Safety M7 PT-IP Assessment and Plan Start: 06/02/18 11:54 Freq: NEEDED Status: Active Protocol: Document 06/05/18 10:27 [facility] (Rec: 06/05/18 11:48 CLB [id number]) PT Summary Assessment and Plan Summary Progress Towards Goals Slow Progress due to Pain Slow Progress due to Activity Tolerance Slow Progress - Other Assessment Summary Pt able to ambulate in [place] on low pile carpet with increase in foot clearance of LLE. Pt requires assist to straighten leg before sitting. Pt required Min A sit-stand. Goals Bed Mobility Goal Standby Assistance Transfer Goal Standby Assistance Gait Goal Standby Assistance Gait Distance 50 Days to Meet Goals 3 Frequency of Treatment Frequency Of Treatment Twice a Day Treatment Plan Other Recommendations and Next Treatment gait as tolerated, review sit< Focus ->stand Recommendations To Nursing Amount of Assist Needed 2 Person Assist Discharge Recommendations PT Discharge Recommendations SNF Rehab
== END 2018-06-05 13:44 | DRG 482 ==
LOC: ED 07:25 → AC 07:30 → ICU 09:06
PROVIDERS: Orthopaedic Surgery; Admitting Provider Family Medicine; Emergency Provider Emergency Medicine; Family Provider Family Medicine; PCP Family Medicine; Visit Provider Family Medicine
PROC: 0QS704Z Reposition Left Upper Femur with Internal Fixation Device, Open Approach (ICD-10-PCS; principal; 2018-06-01 17:00)
DX: M80.052A Age-related osteoporosis with current pathological fracture, left femur, initial encounter for fracture (principal); M80.032A Age-related osteoporosis with current pathological fracture, left forearm, initial encounter for fracture; F41.9 Anxiety disorder, unspecified; G25.0 Essential tremor; I10 Essential (primary) hypertension; E03.9 Hypothyroidism, unspecified; F32.9 Major depressive disorder, single episode, unspecified; G25.81 Restless legs syndrome; F17.210 Nicotine dependence, cigarettes, uncomplicated
CPT/HCPCS: 36415; 36591; 51701; 71045; 73110; 73502; 76000; 80053; 81001; 85014; 85018; 85025; 85610; 85730; 86850; 86900; 86901; 87797; 93005; 93010; 94760; 96374; 96376; 97116; 97162; 97165; 97530; 97535; 99223; 99232; 99238; 99284; 99285; 99406; J0690; J1100; J1170; J1650; J2060; J2405; J2704; J3010

== ENCOUNTER → 2018-06-06 10:19 | Outpatient (REF) | payer SELFPAY ==
[2018-06-01 09:10] VITALS: BMI 19.1
[2018-06-06 11:10] LABS: Add Manual Diff / Slide Review NO; Basophils Percent Auto 1.2 % (0-2); Eosinophils Percent Auto 4.3 % (2-4); Hematocrit 29.5 % (36-46); Hemoglobin 10.2 g/dL (12.0-16.0); Lymphocytes Percent Auto 23.1 % (25-40); Mean Corpuscular HGB Conc 34.5 % (30-36); Mean Corpuscular Hemoglobin 33.2 PG (26-34); Mean Corpuscular Volume 96.2 fL (80-100); Monocytes Percent Auto 9.8 % (3-14); Neutrophils Absolute Auto 3500 /uL (1500-7000); Neutrophils Percent Auto 61.6 % (50-75); Platelet Count 324 X10^3/uL (150-400); Red Blood Cell Count 3.07 X10^6/uL (4.0-5.2); Red Cell Distribution Width 11.8 % (11.6-14.8); White Blood Cell Count 5.7 X10^3/uL (4.5-11.0)
[2018-06-06 11:17] LABS: Blood Urea Nitrogen 14 mg/dL (7-17); Calcium 9.2 mg/dL (8.4-10.2); Carbon Dioxide 26 mmol/L (22-32); Chloride 105 mmol/L (98-107); Estimated Glomerular Filt Rate > 60.0 mL/min (>60); Glucose 85 mg/dL (80-110); HEMOLYSIS < 15 (0-50); Potassium 3.9 mmol/L (3.4-5.1); Sodium 143 mmol/L (137-145)
== END ==
LOC: LAB 10:19
PROVIDERS: Family Provider Family Medicine; PCP Family Medicine; Visit Provider Hospitalist
DX: Z48.89 Encounter for other specified surgical aftercare (principal)
CPT/HCPCS: 36415; 80048; 85025

== ENCOUNTER → 2018-12-02 13:30 | Outpatient (CLI) | payer MEDICARE, SELFPAY ==
[2018-06-01 09:10] VITALS: BMI 19.1
--- NOTE | 2018-12-02 | DI.MG.S_ITS ---
BILATERAL DIGITAL SCREENING MAMMOGRAM 3D/2D WITH CAD POST LUMPECTOMY: 12/02/2018 CLINICAL: Routine screening. Personal history of left breast cancer. Comparison is made to exams dated: 11/09/2017 mammogram, 10/15/2016 mammogram, 09/10/2015 mammogram, 10/15/2017 mammogram, 01/05/2014 mammogram, and 12/13/2013 mammogram - [facility]. There are scattered fibroglandular elements in both breasts. Current study was also evaluated with a Computer Aided Detection (CAD) system. There is a circular molemarker overlying the right breast. There are benign vascular calcifications in both breasts. Large oval circumscribed mass in the upper outer left breast is partially imaged on this exam, but remains stable to multiple prior comparison exams dating back to 09/10/2015. No significant masses, calcifications, or other findings are seen in either breast. There has been no significant interval change. IMPRESSION: There is no mammographic evidence of malignancy. A 1 year screening mammogram is recommended. This exam was interpreted at Station ID: [id number]. NOTE: For mammograms, a report in lay terms will be sent to the patient. Approximately 15% of breast malignancies will not be visualized mammographically. In the management of a palpable breast mass, a negative mammogram must not discourage biopsy of a clinically suspicious lesion. Electronically Signed By: Jerad Patel M.D. ecl/:12/02/2018 17:39:02 letter sent: Normal Exam ACR BI-RADS Category 2: Benign Finding(s) [id number]
== END ==
PROVIDERS: Family Provider Family Medicine; PCP Family Medicine; Visit Provider Family Medicine
DX: Z12.31 Encounter for screening mammogram for malignant neoplasm of breast (principal); Z85.3 Personal history of malignant neoplasm of breast
CPT/HCPCS: 77063; 77067

== ENCOUNTER → 2019-02-04 10:33 | Outpatient (CLI) | payer MEDICARE, SELFPAY ==
[2018-06-01 09:10] VITALS: BMI 19.1
--- NOTE | 2019-02-04 | DI.MRI.S_ITS ---
PROCEDURE: MR LOWER LEG RT WO CON INDICATIONS: Pain in right lower leg TECHNIQUE: Noncontrast coronal and sagittal T1 spin echo and STIR; axial T1 spin echo and T2 fast spin echo with fat saturation through the tibia/fibula. COMPARISON: None. FINDINGS: Image quality: Excellent. Bones: The visualized bone marrow demonstrates normal signal on all sequences. The overlying cortex appears intact. No fractures lines or intra-osseous lesions. Leslie's cyst is incidentally noted. Subcutaneous edema present at the lateral aspect of the right lower leg. Muscle signal intensity grossly unremarkable. There is fatty infiltration and atrophy of the medial gastrocnemius muscle. IMPRESSION: No definite periosteal signal changes to imply chandler splints (anteromedial tibial stress syndrome). Nonspecific subcutaneous and superficial fascial edema, primarily along the lateral aspect of the lower leg although etiology unknown. No marrow signal changes to suggest stress fracture Incidentally noted Leslie's cyst. Mild atrophy and fatty infiltration of the medial gastrocnemius muscle. Dictated by: Bean Reyes M.D. on 02/06/2019 at 9:38 Approved by: Bean Reyes M.D. on 02/06/2019 at 9:46
== END ==
PROVIDERS: Family Provider Family Medicine; PCP Family Medicine; Visit Provider Orthopaedic Surgery
DX: M79.661 Pain in right lower leg (principal); M71.21 Synovial cyst of popliteal space [Baker], right knee
CPT/HCPCS: 73718

== ENCOUNTER → 2019-08-29 11:32 | Outpatient (CLI) | payer MEDICARE, SELFPAY ==
[2018-06-01 09:10] VITALS: BMI 19.1
[2019-08-29 12:53] LABS: Add Manual Diff / Slide Review NO; Basophils Absolute Auto 100 /uL (0-100); Basophils Percent Auto 1.4 % (0-2); Eosinophils Absolute Auto 300 /uL (0-450); Eosinophils Percent Auto 4.6 % (2-4); Hematocrit 38.8 % (36-46); Hemoglobin 13.4 g/dL (12.0-16.0); Lymphocytes Absolute Auto 2200 /uL (1100-4500); Lymphocytes Percent Auto 31.7 % (25-40); Mean Corpuscular HGB Conc 34.5 % (30-36); Mean Corpuscular Hemoglobin 32.2 PG (26-34); Mean Corpuscular Volume 93.4 fL (80-100); Monocytes Absolute Auto 600 /uL (0-900); Monocytes Percent Auto 9.3 % (3-14); Neutrophils Absolute Auto 3600 /uL (1500-7000); Platelet Count 323 X10^3/uL (150-400); Red Blood Cell Count 4.16 X10^6/uL (4.0-5.2); Red Cell Distribution Width 12.6 % (11.6-14.8); White Blood Cell Count 6.9 X10^3/uL (4.5-11.0)
[2019-08-29 13:10] LABS: Alanine Aminotransferase 28 IU/L (<35); Albumin 4.3 g/dL (3.5-5.0); Albumin Globulin Ratio 1.2 (1.0-2.8); Alkaline Phosphatase 119 U/L (38-126); Aspartate Aminotransferase 40 IU/L (14-36); BUN Creatinine Ratio 35.1 (6-22); Bilirubin Total 0.8 mg/dL (0.2-1.3); Blood Urea Nitrogen 20 mg/dL (7-17); Calcium 10.5 mg/dL (8.4-10.2); Carbon Dioxide 27 mmol/L (22-32); Chloride 106 mmol/L (98-107); Estimated Glomerular Filt Rate > 60.0 mL/min (>60); Globulin 3.7 g/dL (1.7-4.1); Glucose 93 mg/dL (80-110); HEMOLYSIS < 15 (0-50); Sodium 141 mmol/L (137-145)
[2019-08-29 13:12] LABS: Potassium 5.4 mmol/L (3.4-5.1)
== END ==
PROVIDERS: Family Provider Family Medicine; PCP Family Medicine; Referring Provider Family Medicine; Visit Provider Family Medicine
DX: E03.9 Hypothyroidism, unspecified (principal); I10 Essential (primary) hypertension
CPT/HCPCS: 36415; 80053; 84443; 85025

== ENCOUNTER 2019-09-16 09:28 | Emergency (ER) | payer MEDICARE, SELFPAY ==
[2018-06-01 09:10] VITALS: BMI 19.1
[2019-09-16 09:40] VITALS: BP 130/65; PULSE 76; RESP 19; TEMP 36.6; O2SAT 98
--- NOTE | 2019-09-16 09:46 | DI.RAD.S_ITS ---
PROCEDURE: XR SHOULDER LT MIN 2V INDICATIONS: Fall last night, landed on shoulder. TECHNIQUE: 3 views of the shoulder were acquired. COMPARISON: None. FINDINGS: Bones: There is a moderately displaced, impacted fracture seen of the humeral head. No additional fracture can be seen. The visualized ribs are unremarkable. No glenohumeral dislocation. Soft tissues: No suspicious soft tissue calcifications. The visualized lung demonstrates an unremarkable appearance. IMPRESSION: Impacted fracture of the left humeral head. Please consider a dedicated shoulder CT for further evaluation. Dictated by: Darci George M.D. on 09/16/2019 at 9:18 Approved by: Darci George M.D. on 09/16/2019 at 9:21
--- NOTE | 2019-09-16 10:22 | DI.RAD.S_ITS ---
PROCEDURE: XR SCAPULA LT INDICATIONS: left posterior shoulder pain fall on table TECHNIQUE: 2 views of the scapula were acquired. COMPARISON: [facility], CR, XR SHOULDER LT MIN 2V, 09/16/2019, 9:48. FINDINGS: Bones: There is a fracture of the left humeral head again seen. No scapular fracture can be seen. No definite dislocation is seen. The visualized ribs are unremarkable. No suspicious lytic or blastic lesions are seen. Soft tissues: Overlying soft tissues appear normal. IMPRESSION: No scapular fracture is seen on these plain films. Impacted fracture of the left humeral head. Dictated by: Darci George M.D. on 09/16/2019 at 10:02 Approved by: Darci George M.D. on 09/16/2019 at 10:03
--- NOTE | 2019-09-16 10:40 | ED_ITS ---
HPI - Extremity Injury (Upper) General Chief Complaint: Extremity Injury, Upper Stated Complaint: GLF, shoulder/left arm pain Time Seen by Provider: 09/16/19 10:12 Source: patient Mode of arrival: Wheelchair History of Present Illness HPI narrative: HPI: The patient is a 74-year-old female who has severe left shoulder pain. She states that she fell yesterday against a coffee table and injured her left shoulder. She states that the pain is in her posterior shoulder be in the area of her shoulder blade. The patient has an unsteady gait due to severe tremor. She states that she lost her balance and tripped. She did not pass out. She did not strike her head. She denies any headache. She has some mild left neck stiffness secondary to the pain in her left shoulder. She denies any chest pain belly pain low back pain. She denies any exposure to anyone with heard virus. She has had no cough no fever and no travel outside the [place]. She denies being a diabetic admits to hypertension. She denies a history of a stroke myocardial infarction COPD or asthma. She use to smoke does not drink alcohol or smoke marijuana or use any other drugs. She denies any fever chills sweats headache chest pain cough shortness of breath palpitations dizziness abdominal pain nausea vomiting diarrhea melena hematochezia or any urinary symptoms. When she fell she denies any incontinence of urine or stool. Related Data Home Medications Medication Instructions Recorded Confirmed flaxseed oil 2,000 mg PO DAILY #0 07/30/11 08/09/19 Calcium 1 tab PO DAILY 06/01/18 08/09/19 [address]ing Permit 1 ea MISCELLANEOUS DIRECTED 06/01/18 08/09/19 Vitamin B 100 mg PO DAILY 06/01/18 08/09/19 ascorbic acid (vitamin C) [Vitamin 500 mg PO DAILY 06/01/18 08/09/19 C] glucosamine sulfate 1,000 mg PO DAILY 06/01/18 08/09/19 multivitamin 1 tab PO DAILY 06/01/18 08/09/19 pramipexole 0.375 mg PO TID 06/01/18 08/09/19 vitamin E 400 unit PO DAILY 06/01/18 08/09/19 cholecalciferol (vitamin D3) 25 1,000 unit PO DAILY 03/06/19 08/09/19 mcg (1,000 unit) capsule Previous Rx's Medication Instructions Recorded clonidine HCl 0.1 mg tablet 0.1 mg PO DAILY #90 tab 03/24/19 levothyroxine 100 mcg tablet 100 mcg PO QDAY #90 tab 03/27/19 potassium chloride 10 mEq 10 meq PO DAILY #90 cap 03/27/19 capsule,extended release furosemide 40 mg tablet 40 mg PO DAILY #90 tab 04/25/19 alendronate 70 mg tablet 70 mg PO Burt@0730 #12 tab 05/30/19 cholestyramine-aspartame 4 gram See Rx Instructions .ROUTE 06/19/19 oral powder for susp in a packet .COMPLEX #60 unspecified trazodone 50 mg tablet 50 mg PO DAILY #30 tab 07/31/19 bupropion HCl 150 mg 24 hr tablet, 150 mg PO 0800 90 Days #90 tab 08/09/19 extended release lorazepam 1 mg tablet 1 mg PO BID #60 tab 08/21/19 cyclobenzaprine 10 mg PO TID PRN #15 tab 09/16/19 oxycodone-acetaminophen [Percocet] 1 tab PO Q6H PRN #12 tab 09/16/19 Allergies Allergy/AdvReac Type Severity Reaction Status Date / Time adhesive Allergy Mild BLISTERING Verified 09/16/19 09:49 codeine [CODEINE] Allergy Mild CRY AND Verified 09/16/19 09:49 SLEEP citalopram AdvReac Mild Anxiety Verified 09/16/19 09:49 Review of Systems Review of Systems Narrative: Her review systems were all negative except for those mentioned in the history of present illness. Patient History Medical History Breast cancer (Chronic) Depression (Chronic) Essential tremor (Acute) Hypertension (Chronic) Hypothyroidism (Chronic) Surgical History Status post cholecystectomy Status post colectomy Status post dilation and curettage Status post rotator cuff repair Ventral hernia (Resolved) Family History Father No problems noted. Mother No problems noted. Social History marital status: household members: spouse Smoking Status: Former smoker Tobacco: How many years used: 60 second hand exposure: No alcohol intake: former (Quit 2017) substance use type: does not use Smoking Status: Former smoker alcohol intake frequency: 0-2 drinks per day Substance Use Type: does not use Exam Narrative Exam Narrative: PHYSICAL EXAM: CONSTITUTIONAL: Awake, Alert, Oriented, Coherent, Cooperative in NAD slow to respond periodically. The patient's left arm and shoulder is in a sling and swathed to her body with an chava wrap. HEAD: AT/NC EENT: PERRL, FROM of eyes, Tympanic membranes are intact without evidence of hemotympanum. No epistaxis or nasal drainage Oral mucosa is moist and pink, posterior pharynx is without erythema or exudate. NECK: Supple, no obvious JVD, Trachea is midline without stridor, no palpable LN or masses. SPINE: No gross deformity, no palpable tenderness of the cervical, thoracic, lumbar or sacral spine. The patient is mildly tender to palpation over the trapezius and left paraspinous cervical muscles. There is no spasm. There is no tenderness to palpation over the scapula or posterior ribs. No CVA tenderness. THORAX: No deformity, retractions,or chest wall tenderness. LUNGS: Patient's breath sounds are decreased with few bibasilar crackles. Otherwise the lungs are clear and symmetrical. HEART: Normal heart tones, regular rhythm and rate without murmur. ABDOMEN: Soft, non-tender, without guarding, rebound, rigidity or palpable mass EXTREMITIES: There is no tenderness to palpation along the clavicle. There is minimal tenderness to palpation over the acromioclavicular joint line. The head of the humerus is tender to palpation. The proximal humerus is not the patient is able to flex and extend her elbow arm she has good flexion extension abduction adduction of the fingers of her hand. Radial pulses 2+. Capillary refill is 2+. Sensation in the fingers are intact. SKIN: No rash, bruising, petechiae or purpura. NEURO: Awake, alert, oriented, cranial nerves II-XII are symmetrical moves all 4 extremities and is ambulatory very slowly with a shuffling gait. Initial Vital Signs Initial Vital Signs: Vital Signs Temperature 98 F 09/16/19 09:40 Pulse Rate 76 09/16/19 09:40 Respiratory Rate 19 09/16/19 09:40 Blood Pressure 130/65 09/16/19 09:40 Pulse Oximetry 98 09/16/19 09:40 Course Course Course Narrative: The patient refused x-rays of her right ribs and chest. She agreed to an x-ray of her scapula which was negative for any fracture. The x- ray of her shoulder revealed that she had an impacted fracture of the head of the humerus. The patient was placed in a shoulder immobilizer and was discharged home to be seen in follow-up by the orthopedic surgeon Dr. Aranda. She was given a prescription for cyclobenzaprine as a muscle relaxant and Percocet 7.5/325 every 6 hours for severe pain number 12. Orders Ordered: ED Orders 09/16/19 09:46 XR shoulder LT min 2V Stat 09/16/19 10:22 XR scapula LT Stat Discontinued Medications Cyclobenzaprine HCl (Flexeril) 10 mg PO NOW ONE Stop: 09/16/19 10:28 Last Admin: 09/16/19 12:06 Dose: 10 mg Documented by: MASSIMO Ibuprofen (Advil) 800 mg PO NOW ONE Stop: 09/16/19 11:49 Last Admin: 09/16/19 12:05 Dose: 800 mg Documented by: MASSIMO Ketorolac Tromethamine (Toradol) 15 mg IV NOW ONE Stop: 09/16/19 10:23 Last Admin: 09/16/19 11:43 Dose: Not Given Documented by: MASSIMO Morphine Sulfate (Morphine) 2 mg IV NOW ONE Stop: 09/16/19 10:41 Last Admin: 09/16/19 11:44 Dose: Not Given Documented by: MASSIMO Oxycodone/Acetaminophen (Percocet 5/325) 2 tab PO NOW ONE Stop: 09/16/19 11:49 Last Admin: 09/16/19 12:05 Dose: 2 tab Documented by: MASSIMO Vital Signs Vital signs: Vital Signs - 8 hr 09/16/19 12:50 Pulse Rate 69 Respiratory Rate 16 Blood Pressure 151/65 H Pulse Oximetry 99 Discharge Plan Departure Patient Disposition: Home Clinical Impression: Pain of left scapula Acute shoulder pain Qualifiers: Laterality: left Qualified Code(s): M25.512 - Pain in left shoulder Acute thoracic back pain Qualifiers: Back pain laterality: left Qualified Code(s): M54.6 - Pain in thoracic spine Fracture of head of left humerus Qualifiers: Encounter type: initial encounter Fracture type: closed Qualified Code(s): S42.292A - Other displaced fracture of upper end of left humerus, initial encounter for closed fracture Discharge Date/Time: 09/16/19 12:52 Activity Restrictions/Additional Instructions: 1. Call the orthopedic surgeon's office tomorrow morning Dr. Aranda and make a follow-up appointment. Inform his office that you have an impacted fracture of the head of the left humerus without displacement. 2. Wear the shoulder immobilizer at all times to help control your pain and discomfort. 3. Use the cyclobenzaprine for any pain uncontrolled by the Percocet and for muscle spasms 3 times a day as prescribed. 4. Use the Percocet 7.5/325 every 4-6 hours as needed for severe pain and discomfort. 5. Apply ice cold compresses to your shoulder and head of the humerus every 2 hours for 20-30 minutes. 6. If you develop worsening pain, fever, shortness of breath, passing out, you need to return to the emergency department Otherwise follow-up with your primary care physician and orthopedic surgeon... Prescriptions: New cyclobenzaprine 10 mg tablet 10 mg PO TID PRN (Reason: muscle spasm) Qty: 15 RF: 0 oxycodone-acetaminophen [Percocet] 7.5-325 mg tablet 1 tab PO Q6H PRN (Reason: pain) Qty: 12 RF: 0 No Action bupropion HCl 150 mg tablet extended release 24 hr 150 mg PO 0800 90 Days Qty: 90 RF: 3 cholecalciferol (vitamin D3) 1,000 unit capsule 1,000 unit PO DAILY RF: 0 flaxseed oil 1,000 mg Capsule 2,000 mg PO DAILY Qty: 0 RF: 0 clonidine HCl 0.1 mg tablet 0.1 mg PO DAILY Qty: 90 RF: 1 levothyroxine 100 mcg tablet 100 mcg PO QDAY Qty: 90 RF: 3 potassium chloride 10 mEq capsule, extended release 10 meq PO DAILY Qty: 90 RF: 2 furosemide 40 mg tablet 40 mg PO DAILY Qty: 90 RF: 2 alendronate 70 mg tablet 70 mg PO Burt@0730 Qty: 12 RF: 3 cholestyramine-aspartame [Prevalite] 4 gram powder in packet See Rx Instructions .ROUTE .COMPLEX Qty: 60 RF: 3 trazodone 50 mg tablet 50 mg PO DAILY Qty: 30 RF: 2 lorazepam 1 mg tablet 1 mg PO BID Qty: 60 RF: 0 multivitamin Tablet 1 tab PO DAILY RF: 0 pramipexole 0.125 mg tablet 0.375 mg PO TID RF: 0 ascorbic acid (vitamin C) [Vitamin C] 500 mg Tablet 500 mg PO DAILY RF: 0 vitamin E 400 unit Capsule 400 unit PO DAILY RF: 0 glucosamine sulfate 1,000 mg Capsule 1,000 mg PO DAILY RF: 0 Calcium 1 tab PO DAILY RF: 0 Vitamin B 100 mg PO DAILY RF: 0 Disabled Parking Permit 1 ea miscellaneous DIRECTED RF: 0 Referrals: Junior Huerta MD [Primary Care Provider] - Derrick Aranda MD [Physician] -
--- NOTE | 2019-09-16 11:43 | PC.NURSE ---
Updated and pt. Pt refused IV pain meds, requesting po, provider aware.
[2019-09-16] MEDS: IBUPROFEN 400 MG TABLET 800 MG PO (12:05)
[2019-09-16] MEDS: OXYCODONE/ACETAMINOPHEN 5/325 TABLET 2 TAB PO (12:05)
[2019-09-16] MEDS: CYCLOBENZAPRINE 10 MG TABLET PO (12:06)
[2019-09-16 12:50] VITALS: BP 151/65; PULSE 69; RESP 16; O2SAT 99
--- NOTE | 2019-09-16 13:01 | PC.NURSE ---
patient lost footing while getting into car, staff assisted patient up from ground with gait belt patient was discharged with. Patient denies any injury from fall, wants to go home. Encouraged patient to use fire department for assist into house if feeling unsteady at all
--- NOTE | 2019-09-16 19:23 | PC.NURSE ---
spouse called to discuss pain management and medications. Spouse expressed better understanding of pain management and medications at the end of conversation. All questions addressed at that time
== END 2019-09-16 12:52 | disposition home or self-care (01) ==
PROVIDERS: Emergency Provider Emergency Medicine; Family Provider Family Medicine; PCP Family Medicine
DX: S42.292A Other displaced fracture of upper end of left humerus, initial encounter for closed fracture (principal); M25.512 Pain in left shoulder; M54.6 Pain in thoracic spine; W01.190A Fall on same level from slipping, tripping and stumbling with subsequent striking against furniture, initial encounter
CPT/HCPCS: 73010; 73030; 99283

== ENCOUNTER → 2019-09-19 12:52 | Outpatient (CLI) | payer MEDICARE, SELFPAY ==
[2018-06-01 09:10] VITALS: BMI 19.1
--- NOTE | 2019-09-19 13:08 | DI.CT.S_ITS ---
PROCEDURE: CT UE LT WO CON INDICATIONS: Unspecified fracture of upper end of left humerus, TECHNIQUE: Noncontrast 1-1.5 mm thick sections acquired from the acromioclavicular joint to the inferior scapula, with coronal and sagittal reformatting. COMPARISON: None. FINDINGS: Image quality: Excellent. Bones: Impacted fracture of the anatomic head of the proximal left humerus. There is gross incongruity of the humeral head articular surface with approximately 5 mm of cortical step-off. 1-2 mm osseous fragments seen in the glenohumeral joint space for example image 50/2. Moderate to severe background AC joint degeneration. Soft tissues: Associated glenohumeral joint effusion, and subacromial-subdeltoid bursitis. IMPRESSION: Impacted intra-articular fracture of the anatomic humeral head, with associated articular surface incongruity as detailed above 1-2 mm small loose body/fracture fragments seen within the glenohumeral joint space Dictated by: Bean Reyes M.D. on 09/19/2019 at 14:21 Approved by: Bean Reyes M.D. on 09/19/2019 at 14:27
== END ==
PROVIDERS: Family Provider Family Medicine; PCP Family Medicine; Referring Provider Family Medicine; Visit Provider Orthopaedic Surgery
DX: S42.292A Other displaced fracture of upper end of left humerus, initial encounter for closed fracture (principal); M19.012 Primary osteoarthritis, left shoulder; M75.52 Bursitis of left shoulder; X58.XXXA Exposure to other specified factors, initial encounter
CPT/HCPCS: 73200

== ENCOUNTER → 2019-12-14 13:55 | Outpatient (CLI) | payer MEDICARE, SELFPAY ==
[2018-06-01 09:10] VITALS: BMI 19.1
--- NOTE | 2019-12-14 | DI.MG.S_ITS ---
BILATERAL DIGITAL SCREENING MAMMOGRAM 3D/2D WITH CAD: 12/14/2019 CLINICAL: Routine screening. breast cancer history. Comparison is made to exams dated: 12/02/2018 mammogram, 11/09/2017 mammogram, 10/15/2017 mammogram, 10/15/2016 mammogram, and 09/10/2015 mammogram - [facility]. There are scattered fibroglandular elements in both breasts. Current study was also evaluated with a Computer Aided Detection (CAD) system. There is a benign mass in the left breast. There also are benign vascular calcifications in both breasts. No significant masses, calcifications, or other findings are seen in either breast. There has been no significant interval change. IMPRESSION: There is no mammographic evidence of malignancy. A 1 year screening mammogram is recommended. This exam was interpreted at Station ID: [id number]. NOTE: For mammograms, a report in lay terms will be sent to the patient. Approximately 15% of breast malignancies will not be visualized mammographically. In the management of a palpable breast mass, a negative mammogram must not discourage biopsy of a clinically suspicious lesion. Electronically Signed By: Chelsea chung/bimal:12/14/2019 15:19:18 letter sent: Normal Exam ACR BI-RADS Category 2: Benign Finding(s) 3342F
== END ==
PROVIDERS: Family Provider Family Medicine; PCP Family Medicine; Referring Provider Family Medicine; Visit Provider Family Medicine
DX: Z12.31 Encounter for screening mammogram for malignant neoplasm of breast (principal); Z85.3 Personal history of malignant neoplasm of breast
CPT/HCPCS: 77063; 77067

== ENCOUNTER → 2019-12-16 14:37 | Outpatient (CLI) | payer MEDICARE, SELFPAY ==
[2018-06-01 09:10] VITALS: BMI 19.1
== END ==
PROVIDERS: Family Provider Family Medicine; PCP Family Medicine; Visit Provider Physician Assistant
DX: R30.0 Dysuria (principal); R35.0 Frequency of micturition
CPT/HCPCS: 87086

== ENCOUNTER → 2020-01-22 14:55 | Outpatient (CLI) | payer MEDICARE, SELFPAY ==
[2018-06-01 09:10] VITALS: BMI 19.1
[2020-01-22 16:24] LABS: Alanine Aminotransferase 25 IU/L (<35); Albumin 3.9 g/dL (3.5-5.0); Albumin Globulin Ratio 1.2 (1.0-2.8); Alkaline Phosphatase 96 U/L (38-126); Aspartate Aminotransferase 37 IU/L (14-36); BUN Creatinine Ratio 24.3 (6-22); Bilirubin Total 0.7 mg/dL (0.2-1.3); Blood Urea Nitrogen 18 mg/dL (7-17); Calcium 9.8 mg/dL (8.4-10.2); Carbon Dioxide 24 mmol/L (22-32); Chloride 107 mmol/L (98-107); Estimated Glomerular Filt Rate > 60.0 mL/min (>60); Globulin 3.2 g/dL (1.7-4.1); Glucose 68 mg/dL (80-110); HEMOLYSIS < 15 (0-50); Potassium 4.6 mmol/L (3.4-5.1); Sodium 138 mmol/L (137-145); Total Protein 7.1 g/dL (6.3-8.2)
[2020-01-22 16:30] LABS: NT-proBNP (BNP-Adult 18+) 344 pg/mL (<450)
== END ==
PROVIDERS: Family Provider Family Medicine; PCP Family Medicine; Referring Provider Family Medicine; Visit Provider Family Medicine
DX: R60.0 Localized edema (principal)
CPT/HCPCS: 36415; 80053; 83880

== ENCOUNTER → 2020-01-31 15:00 | Outpatient (CLI) | payer MEDICARE, SELFPAY ==
[2018-06-01 09:10] VITALS: BMI 19.1
[2020-01-31 16:14] LABS: D Dimer 330 ng/mL (<230)
== END ==
PROVIDERS: Family Provider Family Medicine; PCP Family Medicine; Referring Provider Family Medicine; Visit Provider Family Medicine
DX: I82.90 Acute embolism and thrombosis of unspecified vein (principal); R60.0 Localized edema; R35.0 Frequency of micturition
CPT/HCPCS: 36415; 85379; 87086

== ENCOUNTER → 2020-02-01 12:35 | Outpatient (CLI) | payer MEDICARE, SELFPAY ==
[2018-06-01 09:10] VITALS: BMI 19.1
--- NOTE | 2020-02-01 12:37 | DI.US.S_ITS ---
PROCEDURE: US PERIPH VENOUS LOW EXTREM LT INDICATIONS: SWELLING LLE TECHNIQUE: Real-time imaging, as well as color and pulse Doppler interrogation, were performed of the lower extremity deep veins from the inguinal ligament to the popliteal fossa. COMPARISON: None. FINDINGS: The common femoral, femoral and popliteal veins are normally compressible, and free of intraluminal thrombus. Color and pulse Doppler demonstrate normal phasic intraluminal flow. There is normal augmentation response to distal compression maneuver. IMPRESSION: No deep venous thrombosis identified within the left lower extremity. Dictated by: Ahsan Kelly [facility] Interpreted: Kia Mccain MD on 02/01/2020 at 13:52 Approved by: Kia Mccain MD, PhD on 02/01/2020 at 14:36
== END ==
PROVIDERS: Family Provider Family Medicine; PCP Family Medicine; Referring Provider Family Medicine; Visit Provider Family Medicine
DX: M79.89 Other specified soft tissue disorders (principal); R79.89 Other specified abnormal findings of blood chemistry
CPT/HCPCS: 93971

== ENCOUNTER → 2020-04-01 15:54 | Outpatient (CLI) | payer MEDICARE, SELFPAY ==
[2018-06-01 09:10] VITALS: BMI 19.1
[2020-04-01 16:38] LABS: Add Manual Diff / Slide Review NO; Basophils Absolute Auto 0 /uL (0-100); Basophils Percent Auto 0.5 % (0-2); Eosinophils Absolute Auto 200 /uL (0-450); Eosinophils Percent Auto 2.9 % (2-4); Hematocrit 36.4 % (36-46); Hemoglobin 12.4 g/dL (12.0-16.0); Lymphocytes Absolute Auto 1800 /uL (1100-4500); Lymphocytes Percent Auto 21.7 % (25-40); Mean Corpuscular HGB Conc 34.1 % (30-36); Mean Corpuscular Hemoglobin 31.6 PG (26-34); Mean Corpuscular Volume 92.5 fL (80-100); Monocytes Absolute Auto 800 /uL (0-900); Monocytes Percent Auto 9.4 % (3-14); Neutrophils Absolute Auto 5300 /uL (1500-7000); Neutrophils Percent Auto 65.5 % (50-75); Platelet Count 295 X10^3/uL (150-400); Red Blood Cell Count 3.94 X10^6/uL (4.0-5.2); Red Cell Distribution Width 12.9 % (11.6-14.8); White Blood Cell Count 8.1 X10^3/uL (4.5-11.0)
[2020-04-01 17:01] LABS: INR 1.1 (0.9-1.3); Prothrombin Time 12.4 SECONDS (10.1-12.7)
[2020-04-01 17:04] LABS: PTT Partial Thromboplastin Tim 33 SECONDS (26.4-36.2)
== END ==
PROVIDERS: Family Provider Family Medicine; PCP Family Medicine; Referring Provider Family Medicine; Visit Provider Family Medicine
DX: Z01.812 Encounter for preprocedural laboratory examination (principal); G91.2 (Idiopathic) normal pressure hydrocephalus
CPT/HCPCS: 36415; 85025; 85610; 85730

== ENCOUNTER → 2020-06-04 13:13 | Outpatient (CLI) | payer MEDICARE, SELFPAY ==
[2020-06-04 08:45] VITALS: BMI 19.1
--- NOTE | 2020-06-04 13:16 | DI.RAD.S_ITS ---
PROCEDURE: XR KNEE RT 3V INDICATIONS: pain TECHNIQUE: 3 views of the knee were acquired. COMPARISON: [facility], , KNEE 3V LEFT, 04/04/2012, 13:18. FINDINGS: Bones: No fracture. Scattered degenerative subchondral sclerosis and spurring. Severe narrowing of the patellofemoral joint space. Soft tissues: No joint effusion. No suspicious soft tissue calcifications. IMPRESSION: Severe right knee joint degeneration, involving the patellofemoral compartment Dictated by: Bean Reyes M.D. on 06/04/2020 at 15:05 Approved by: Bean Reyes M.D. on 06/04/2020 at 15:06
--- NOTE | 2020-06-04 13:16 | DI.RAD.S_ITS ---
PROCEDURE: XR LUMBAR SPINE 2-3V INDICATIONS: R/O COMPRESION FX TECHNIQUE: 3 views of the lumbar spine were acquired. COMPARISON: [facility], , L-SPINE 2-3 VIEWS, 04/13/2017, 11:28. FINDINGS: Bones: Mild L3 compression fracture with mild central height loss. Multilevel degenerative endplate sclerosis and spurring. Diffuse facet arthropathy. Moderate narrowing of the L4-L5 disc space as before. Grade 1 anterolisthesis of L4 on L5 redemonstrated. Soft tissues: Overlying bowel gas pattern is normal. No suspicious soft tissue calcifications. IMPRESSION: Mild L3 compression fracture although no recent comparison studies since 2017. Therefore unknown age. Please correlate clinically to determine acuity. If there is persistent clinical uncertainty, MRI could be performed. Lumbar spondylosis and facet arthropathy. Dictated by: Bean Reyes M.D. on 06/04/2020 at 15:06 Approved by: Bean Reyes M.D. on 06/04/2020 at 15:08
--- NOTE | 2020-06-04 13:16 | DI.RAD.S_ITS ---
PROCEDURE: XR HIP W PEL IF DONE LT 2V INDICATIONS: pain TECHNIQUE: AP pelvis with lateral view(s) of the left hip(s). COMPARISON: [facility], , XR HIP W PEL IF DONE LT 2V, 06/01/2018, 17:46. FINDINGS: Bones: No fracture. Proximal left femur fixation with dynamic screw and lateral sideplate. Hardware appears intact. No evidence of hardware loosening. Expected postoperative alignment. Moderate bilateral hip joint degeneration. Lower lumbar spondylosis and facet disease. Soft tissues: Multiple presumed pelvic phleboliths and possibly calcified uterine fibroid IMPRESSION: Moderate bilateral hip joint degeneration. Expected postoperative alignment of proximal left femur surgical fixation hardware. Dictated by: Bean Reyes M.D. on 06/04/2020 at 15:04 Approved by: Bean Reyes M.D. on 06/04/2020 at 15:05
[2020-06-04 15:04] LABS: Bilirubin Urine UA NEGATIVE (NEGATIVE); Color Urine UA YELLOW; Glucose Urine UA NEGATIVE (Negative); Ketones Urine UA NEGATIVE (NEGATIVE); Leukocyte Esterase Urine UA 1+ (NEGATIVE); Nitrite Urine UA NEGATIVE (Negative); Occult Blood Urine UA NEGATIVE (Negative); Protein Urine UA NEGATIVE (Negative); Urobilinogen Urine UA 0.2 E.U./dL (0.2)
[2020-06-04 15:11] LABS: Appearance Urine UA Slightly Cloudy
[2020-06-04 15:12] LABS: Amorphous Sediment Urine 1+; Bacteria Urine Few (2-10); Culture Indicated Urine Specimen Cultured; Mucus Urine 1+ (Negative); RBC Urine 0-1/HPF (0-5/HPF); Squamous Epithelial Cell Urine 5-10 /HPF (0-5/HPF); WBC Urine 30-100/HPF (0-5/HPF)
== END ==
PROVIDERS: Family Provider Family Medicine; PCP Family Medicine; Referring Provider Family Medicine; Visit Provider Family Medicine
DX: R30.0 Dysuria (principal); S32.039A Unspecified fracture of third lumbar vertebra, initial encounter for closed fracture; M25.552 Pain in left hip; M16.0 Bilateral primary osteoarthritis of hip; M47.816 Spondylosis without myelopathy or radiculopathy, lumbar region; M25.561 Pain in right knee; M17.11 Unilateral primary osteoarthritis, right knee; W19.XXXA Unspecified fall, initial encounter
CPT/HCPCS: 72100; 73502; 73562; 81001; 87086

== ENCOUNTER → 2020-08-27 14:11 | Outpatient (CLI) | payer MEDICARE, SELFPAY ==
[2020-06-04 08:45] VITALS: BMI 19.1
--- NOTE | 2020-08-27 14:12 | DI.RAD.S_ITS ---
PROCEDURE: XR LUMBAR SPINE 2-3V INDICATIONS: compression fx healing status TECHNIQUE: 3 views of the lumbar spine were acquired. COMPARISON: [facility], CR, L-SPINE 2-3 VIEWS, 04/13/2017, 11:28. [facility], CR, XR LUMBAR SPINE 2-3V, 06/04/2020, 13:23. FINDINGS: Bones: 5 [id number] vertebrae are present. There is grade 1 anterolisthesis of L4 on L5. There is moderate compression fracture at L3, slightly increased in severity since 06/04/2020. No suspicious bony lesions. There is mild degenerative disc disease in the lumbar spine. Severe facet arthropathy at L4-L5 and L5-S1. Soft tissues: Overlying bowel gas pattern is normal. No suspicious soft tissue calcifications. IMPRESSION: 1. Mildly increased severely of L3 compression fracture since 06/04/2020. MRI is suggested for further evaluation. 2. Degenerative and disc disease in lumbar spine. Dictated by: Nancy Dunbar M.D. on 08/27/2020 at 16:32 Approved by: Nancy Dunbar M.D. on 08/27/2020 at 16:38
== END ==
PROVIDERS: Family Provider Family Medicine; PCP Family Medicine; Referring Provider Family Medicine; Visit Provider Family Medicine
DX: S32.000A Wedge compression fracture of unspecified lumbar vertebra, initial encounter for closed fracture; M51.36 Other intervertebral disc degeneration, lumbar region; M47.816 Spondylosis without myelopathy or radiculopathy, lumbar region; M47.817 Spondylosis without myelopathy or radiculopathy, lumbosacral region; M43.16 Spondylolisthesis, lumbar region
CPT/HCPCS: 72100

== ENCOUNTER → 2020-09-12 13:52 | Outpatient (CLI) | payer MEDICARE, SELFPAY ==
[2020-06-04 08:45] VITALS: BMI 19.1
--- NOTE | 2020-09-12 13:55 | DI.RAD.S_ITS ---
PROCEDURE: XR LUMBAR SPINE 2-3V INDICATIONS: Pain after fall TECHNIQUE: 3 views of the lumbar spine were acquired. COMPARISON: [facility], CR, XR LUMBAR SPINE 2-3V, 08/27/2020, 14:17. FINDINGS: Bones: Unchanged mild compression fracture of L3. Grade 1 anterolisthesis of L4 on L5 which is unchanged. Multilevel degenerative endplate sclerosis and spurring. Diffuse facet arthropathy. Diffuse mild narrowing of the lumbar disc spaces. Levocurvature noted. Soft tissues: Overlying bowel gas pattern is normal. No suspicious soft tissue calcifications. IMPRESSION: Unchanged appearance of mild L3 compression fracture. Grade 1 anterolisthesis of L4 on L5 as before. Diffuse lumbar spondylosis and facet arthropathy Mild levocurvature Dictated by: Bean Reyes M.D. on 09/12/2020 at 15:59 Approved by: Bean Reyes M.D. on 09/12/2020 at 16:00
--- NOTE | 2020-09-12 13:55 | DI.RAD.S_ITS ---
PROCEDURE: XR HIP W PEL IF DONE CASS MIN 4V INDICATIONS: Pain after fall TECHNIQUE: AP pelvis with lateral view(s) of the left hip(s). COMPARISON: [facility], , XR HIP W PEL IF DONE LT 2V, 06/04/2020, 13:23. FINDINGS: Bones: No fracture. Postsurgical changes related to internal fixation of the proximal left femur. Hardware appears intact. There is expected postop alignment. Lumbar spondylosis and facet arthropathy. Mild bilateral hip joint degeneration. Soft tissues: Postsurgical changes project in the pelvis. IMPRESSION: No fracture. Expected postoperative alignment of lateral sideplate and screw fixation of the proximal left femur Dictated by: Bean Reyes M.D. on 09/12/2020 at 15:57 Approved by: Bean Reyes M.D. on 09/12/2020 at 15:59
== END ==
PROVIDERS: Family Provider Family Medicine; PCP Family Medicine; Referring Provider Family Medicine; Visit Provider Family Medicine
DX: M54.5 Low back pain (principal); M25.559 Pain in unspecified hip; M16.0 Bilateral primary osteoarthritis of hip; M47.816 Spondylosis without myelopathy or radiculopathy, lumbar region; M43.16 Spondylolisthesis, lumbar region; M48.56XS Collapsed vertebra, not elsewhere classified, lumbar region, sequela of fracture; Z98.890 Other specified postprocedural states
CPT/HCPCS: 72100; 73522

== ENCOUNTER 2020-09-13 10:10 | Emergency (ER) | payer MEDICARE, SELFPAY ==
[2020-06-04 08:45] VITALS: BMI 19.1
[2020-09-13] VITALS (7 sets, daily range): BP systolic 131–143; BP diastolic 59–70; PULSE 66–72; RESP 16–18; TEMP 36.5; O2SAT 93–98
[2020-09-13] MEDS: LIDOCAINE PATCH 1 EACH ADH..PATCH TOP (13:19)
--- NOTE | 2020-09-13 13:27 | ED.LOWEXIN ---
HPI - Extremity Injury (Lower) <LURDES Rosenberg - Last Filed: 09/13/20 14:24> General Chief Complaint: Extremity Injury, Lower Stated Complaint: Might have Broken Hip from the CD he has on hand Time Seen by Provider: 09/13/20 12:02 Source: patient Mode of arrival: Family Vehicle Limitations: no limitations History of Present Illness HPI Narrative: This is a 75-year-old female, former smoker, who has past medical history significant for osteoporosis, lumbar compression fracture, hypothyroidism, urinary frequency, hypertension, left hip fracture from a fall presents to ED with significant other with chief complain of worsening low back pain and right hip pain after she had taken another fall 2 days ago at 3:00 a.m. when she went to the bathroom using a walker. According to her , he found her on the bathroom floor in supine position with a walker kicked off. Patient denies losing consciousness and remembers all. She denies having chest pain, breathing difficulty, dizziness prior the fall but is not sure why she had taken a fall. She has been taking tamsulosin at night for urinary frequency but had not had problem with lightheadedness or dizziness. Patient called 911 after the fall and assisted back to her chair by walking with using a walker and 2 person assistance. Patient had taken x-ray test that was arranged by Dr. Huerta yesterday and wanted to know the result but he was told the result was not ready according to the clinic staff. Patient's states he would not be here if he only knew the results. Patient denies headache, vision change, neck pain, tingling/numbness/weakness to extremities. Patient denies other urinary symptoms except the chronic urinary frequency. She denies fever, chills, nausea, vomiting, or rash in her back. Patient is not currently on blood thinner. Patient is independent using a walker during ambulation at home. She states has been walking to the bathroom on her own. She has been using Tylenol up to 3 to 4 times a day for pain management. She declined using NSAIDS since its not good for you and was told by someone to avoid using it. Patient had taken a pain medication that she and her spouse could not recall the name and would not take this medications since she was out of it for 2 days. Related Data Home Medications Medication Instructions Recorded Confirmed flaxseed oil 2,000 mg PO DAILY #0 07/30/11 07/15/20 Calcium 1 tab PO DAILY 06/01/18 07/15/20 Disabled Parking Permit 1 ea MISCELLANEOUS DIRECTED 06/01/18 07/15/20 Vitamin B 100 mg PO DAILY 06/01/18 07/15/20 ascorbic acid (vitamin C) [Vitamin 500 mg PO DAILY 06/01/18 07/15/20 C] glucosamine sulfate 1,000 mg PO DAILY 06/01/18 07/15/20 multivitamin 1 tab PO DAILY 06/01/18 07/15/20 vitamin E 400 unit PO DAILY 06/01/18 07/15/20 cholecalciferol (vitamin D3) 25 1,000 unit PO DAILY 03/06/19 07/15/20 mcg (1,000 unit) capsule pramipexole 0.125 mg tablet 0.25 mg PO TID tab 02/15/20 07/15/20 tamsulosin 0.4 mg capsule 0.4 mg PO BEDTIME 09/09/20 09/09/20 Previous Rx's Medication Instructions Recorded bupropion HCl 150 mg 24 hr tablet, 150 mg PO 0800 90 Days #90 tab 08/09/19 extended release potassium chloride 10 mEq 10 meq PO DAILY #90 cap 12/18/19 capsule,extended release alendronate 70 mg tablet 70 mg PO Burt@0730 #12 tab 05/13/20 clonidine HCl 0.1 mg tablet 0.1 mg PO DAILY #90 tab 05/13/20 furosemide 40 mg tablet 80 mg PO DAILY #180 tab 05/27/20 levothyroxine 100 mcg tablet 100 mcg PO QDAY #90 tab 05/28/20 cholestyramine-aspartame 4 gram See Rx Instructions .ROUTE 07/01/20 oral powder for susp in a packet .COMPLEX #60 unspecified trazodone 50 mg tablet 50 mg PO DAILY #30 tab 08/01/20 lidocaine 1 patch TOPICAL DAILY PRN #30 ea 09/13/20 Allergies Allergy/AdvReac Type Severity Reaction Status Date / Time adhesive Allergy Mild BLISTERING Verified 09/13/20 10:34 codeine [CODEINE] Allergy Mild CRY AND Verified 09/13/20 10:34 SLEEP citalopram AdvReac Mild Anxiety Verified 09/13/20 10:34 Review of Systems <Isaiah KAITLYN GibbonsP - Last Filed: 09/13/20 14:24> Review of Systems Narrative: General: Denies fever, chills, fatigue, malaise, sweats. HEENT: Denies sinus pain, ear pain, sore throat, difficulty swallowing, dizziness. Respiratory: Denies dyspnea, cough, wheezing, hemoptysis, sputum. Cardiovascular: Denies chest pain, palpitations, orthopnea, edema. Gastrointestinal: Denies nausea, vomiting, abdominal pain, diarrhea, constipation, melena. : Denies dysuria, frequency, incontinence, hematuria, urinary retention. Musculoskeletal: see HPI Skin: Denies rash, skin lesions, or other. Neurologic: Denies weakness, headache, numbness, change in speech, confusion, seizures, incoordination. Psychiatric: No concerning psychosocial issues. 12-point review of systems is negative except for those stated above. Patient History <LURDES Rosenberg - Last Filed: 09/13/20 14:24> Medical History Breast cancer Depression Essential tremor Hypertension Hypothyroidism Lumbar compression fracture Surgical History Status post cholecystectomy Status post colectomy Status post dilation and curettage Status post rotator cuff repair Ventral hernia Family History Father No problems noted. Mother No problems noted. Social History marital status: household members: spouse Smoking Status: Former smoker Tobacco: How many years used: 60 second hand exposure: No alcohol intake: former substance use type: does not use Smoking Status: Former smoker alcohol intake frequency: 0-2 drinks per day Alcohol type: wine Substance Use Type: does not use Exam <LURDES Rosenberg - Last Filed: 09/13/20 14:24> Narrative Exam Narrative: GEN: Alert, oriented x 3, well appearing and nourished, and in no acute distress. Head: Normal cephalic, atraumatic. No scalp or temporal tenderness, palpable mass or rash. EYES: Pupils are equal, round, and reactive to light and accommodation. Extraocular muscles are intact bilaterally. There is no subconjunctival hemorrhage, exudate and sclera non-icteric. ENT: Hearing grossly intact. Airway patent. Neck: Trachea in midline. No JVD, non-tender without lymphadenopathy. No masses or thyroid megaly. Supple, non-tender and no meningeal signs. CARDIAC: Normal regular rate and rhythm without murmurs, gallops, or rubs. No chest wall tenderness. No peripheral edema, cyanosis or pallor. Capillary refill is less than 2 seconds. RESPIRATORY: Lungs are clear to auscultate bilaterally. No cough, wheezes, rales, or rhonchi. No stridor, respiratory distress, increase work of breathing, or accessary muscle used. ABD: Abdomen soft, nontender and non-distended. No guarding or rebound tenderness to palpate. Bowel sounds are normal in all 4 quadrants. There is no palpable masses or organomegaly. EXT: Full painless ROM of all extremities with no loss of sensation, strength, effusion or edema. SKIN: Warm, dry, normal color for patient. No erythema, lesions or rash over visible areas. BACK: Nontender without deformity or crepitance. No flank tenderness. Back pain with movements and changing in position. No spinous tenderness or paraspinous tenderness with palpation. NEUROLOGICAL: Alert and oriented to place, time and person. Sensation and motor function intact bilaterally. No facial droops, dysphasia. PSYCHIATRIC: Good judgement and reason, without hallucinations, abnormal affect or abnormal behaviors during the examination. Patient is not suicidal. Initial Vital Signs Initial Vital Signs: Vital Signs Temperature 97.7 F 09/13/20 10:30 Pulse Rate 71 09/13/20 10:30 Respiratory Rate 18 09/13/20 10:30 Blood Pressure 134/65 09/13/20 10:30 Pulse Oximetry 97 09/13/20 10:30 <Silvia White, - Last Filed: 09/13/20 18:44> Initial Vital Signs Initial Vital Signs: Vital Signs Temperature 97.7 F 09/13/20 10:30 Pulse Rate 71 09/13/20 10:30 Respiratory Rate 18 09/13/20 10:30 Blood Pressure 134/65 09/13/20 10:30 Pulse Oximetry 97 09/13/20 10:30 Scores <LURDES Rosenberg - Last Filed: 09/13/20 14:24> GCS [place] coma scale eye opening: Spontaneous [place] coma scale verbal response: Orientated [place] coma scale motor response: Obey commands [place] coma scale total score: 15 Course <LURDES Rosenberg - Last Filed: 09/13/20 14:24> Orders Ordered: Discontinued Medications Lidocaine (Lidocaine Patch 1 Each Adh..Patch) 1 each TOP NOW ONE Stop: 09/13/20 13:00 Last Admin: 09/13/20 13:19 Dose: 1 each Documented by: MASSIMO Vital Signs Vital signs: Vital Signs - 8 hr 09/13/20 11:00 09/13/20 11:30 09/13/20 12:00 Pulse Rate 66 71 72 Respiratory Rate Blood Pressure 131/59 L 134/60 132/63 Pulse Oximetry 96 97 98 09/13/20 14:08 09/13/20 14:32 Pulse Rate 69 70 Respiratory Rate 16 Blood Pressure 143/70 H 143/70 H Pulse Oximetry 93 96 <Silvia White DO - Last Filed: 09/13/20 18:44> Orders Ordered: Discontinued Medications Lidocaine (Lidocaine Patch 1 Each Adh..Patch) 1 each TOP NOW ONE Stop: 09/13/20 13:00 Last Admin: 09/13/20 13:19 Dose: 1 each Documented by: MASSIMO Vital Signs Vital signs: Vital Signs - 8 hr 09/13/20 11:00 09/13/20 11:30 09/13/20 12:00 Pulse Rate 66 71 72 Respiratory Rate Blood Pressure 131/59 L 134/60 132/63 Pulse Oximetry 96 97 98 09/13/20 14:08 09/13/20 14:32 Pulse Rate 69 70 Respiratory Rate 16 Blood Pressure 143/70 H 143/70 H Pulse Oximetry 93 96 MDM - Extremity Injury (Lower) <LURDES Rosenberg - Last Filed: 09/13/20 14:24> Differential Diagnosis Differential diagnosis: Likely other (Low back pain, spinous fracture, strained back, hip fracture) Medical Records Attestation: I reviewed the patient's medical records. MDM Narrative Medical decision making narrative: This is 75-year-old female who presents to ED with spouse who are both appears to be frustrated during initial exam. Patient has intact sensation and strength bilaterally in lower extremities. Negative leg raise test. No spinous or paraspinous tenderness to palpate. There is no rash or warmth to affected back. Physical exam was unremarkable. Patient is afebrile and nontoxic appearing. She was able to use bedside commode without assistance and back to bed. Patient was able to take few steps without difficulty in ED. I shared radiology report that was done yesterday with patient and spouse. There is no acute findings in hip surgery, there is no changes in previous L3 compression fractures. Patient offered other medication regimen the size Tylenol which can help her to be a little bit more active. Patient declined ibuprofen/Motrin products stating not good for you and was told by someone to avoid this. Patient advised to use Voltaren gel instead. Also offered lidocaine patch as needed for pain management. Patient and spouse both declined narcotic or muscle relaxant due to added sedation. We discussed return precautions and advised to follow up with primary care physician noting that she may need physical therapy for unsteady gait and frequent fall after acute pain subsides. Patient verbalized understanding in agreement with the treatment plan. Discharge Plan Departure Patient Disposition: Home Clinical Impression: Back pain Qualifiers: Back pain location: low back pain Chronicity: acute Back pain laterality: bilateral Sciatica presence: without sciatica Qualified Code(s): M54.5 - Low back pain Fall Qualifiers: Encounter type: initial encounter Qualified Code(s): W19.XXXA - Unspecified fall, initial encounter Instructions: Vertebral Compression Fracture, How to Prevent Falls Activity Restrictions/Additional Instructions: You have been diagnosed with [no changes in compression fracture. Hip/pelvis x-ray without acute findings. These imaging tests were done yesterday. You have been able to ambulate with a walker at home to bathroom]. What to do: *Take your medications as directed. Please take Tylenol 650mg up to 3 to 4 times a day as needed for pain. Please use lidocaine patch on affected site daily as needed. Patch stays on for 12 hours and off for 12 hours. Also you can purchase Voltaren gel which is ibuprofen/Motrin like products which you can use topically and with some low side effects. I believe these 3 medication regimen will help with pain. You declined narcotic medications or other muscle relaxant at this time due to sedation. *Follow up with your primary care provider in 2-3 days, call for an appointment. Let them know you were seen in the ED and that we asked you to be seen in follow up. *Return to ED if you have any new, worsening, or concerning symptoms, such as [worsening pain, unable to tolerate fluids, chest pain, breathing difficulty, weakness/numbness/tingling in lower extremities, fever, rash on her back, incontinence or any acute concerns]. Prescriptions: New lidocaine 5 % adhesive patch,medicated 1 patch topical DAILY PRN (Reason: back pain) Qty: 30 RF: 0 No Action bupropion HCl 150 mg tablet extended release 24 hr 150 mg PO 0800 90 Days Qty: 90 RF: 3 cholecalciferol (vitamin D3) 1,000 unit capsule 1,000 unit PO DAILY RF: 0 tamsulosin [Flomax] 0.4 mg capsule 0.4 mg PO BEDTIME RF: 0 flaxseed oil 1,000 mg Capsule 2,000 mg PO DAILY Qty: 0 RF: 0 potassium chloride 10 mEq capsule, extended release 10 meq PO DAILY Qty: 90 RF: 2 clonidine HCl 0.1 mg tablet 0.1 mg PO DAILY Qty: 90 RF: 1 alendronate 70 mg tablet 70 mg PO Burt@0730 Qty: 12 RF: 3 furosemide 40 mg tablet 80 mg PO DAILY Qty: 180 RF: 1 levothyroxine 100 mcg tablet 100 mcg PO QDAY Qty: 90 RF: 3 Prevalite 4 gram powder in packet See Rx Instructions .ROUTE .COMPLEX Qty: 60 RF: 3 trazodone 50 mg tablet 50 mg PO DAILY Qty: 30 RF: 2 multivitamin Tablet 1 tab PO DAILY RF: 0 ascorbic acid (vitamin C) [Vitamin C] 500 mg Tablet 500 mg PO DAILY RF: 0 vitamin E 400 unit Capsule 400 unit PO DAILY RF: 0 glucosamine sulfate 1,000 mg Capsule 1,000 mg PO DAILY RF: 0 Calcium 1 tab PO DAILY RF: 0 Vitamin B 100 mg PO DAILY RF: 0 Disabled Parking Permit 1 ea miscellaneous DIRECTED RF: 0 pramipexole 0.125 mg tablet 0.25 mg PO TID RF: 0 Referrals: Junior Huerta MD [Primary Care Provider] - <Silvia White DO - Last Filed: 09/13/20 18:44> Cosign ED Attending Cosignature Attestation: I was immediately available in the department for consultation. Documentation has been reviewed.
== END 2020-09-13 14:34 | disposition home or self-care (01) ==
PROVIDERS: Emergency Provider Nurse Practitioner Family; Family Provider Family Medicine; PCP Family Medicine
DX: M54.5 Low back pain (principal)
CPT/HCPCS: 99282

== ENCOUNTER → 2020-10-30 12:53 | Outpatient (CLI) | payer MEDICARE, SELFPAY ==
[2020-06-04 08:45] VITALS: BMI 19.1
--- NOTE | 2020-10-30 12:55 | DI.RAD.S_ITS ---
PROCEDURE: XR LUMBAR SPINE 2-3V INDICATIONS: low back pain after hx of compression fx TECHNIQUE: 3 views of the lumbar spine were acquired. COMPARISON: [facility], CR, XR LUMBAR SPINE 2-3V, 06/04/2020, 13:23. [facility], CR, XR LUMBAR SPINE 2-3V, 09/12/2020, 13:57. [facility], CR, XR LUMBAR SPINE 2-3V, 08/27/2020, 14:17. FINDINGS: Bones: 5 [id number] vertebrae are present. There is normal bony alignment. No vertebral body compression fractures. No suspicious bony lesions. Note is made of slight convex leftward scoliosis centered at L2-3. On the lateral view there is superior endplate bowing inferiorly at L1 and L2 and present to a greater degree at L3. The L2 bowing may be new. Degenerative disc disease is mild at L4-5 and and L5-S1. Facet osteoarthritis is moderately severe at these 2 levels allowing anterolisthesis grade 1 of L4 on L5 and L5 on S1. Note is made of a angulation abnormality along the anterior sacral border at approximately S2-S3 and this was previously present in August of this year. This may reflect a prior insufficiency fracture and was also present on LS spine plain film imaging 06/04/20. Soft tissues: Overlying bowel gas pattern is normal. No suspicious soft tissue calcifications. IMPRESSION: The L2 superior endplate bowing inferiorly is a relatively new finding and difficult to accurately compare given differences in angulation. It is mild but potentially new. MR scanning allows definitive establishment of new versus old areas of abnormality. The L2 superior endplate bowing was not present in May of last year. The compression fractures at L3 and L1 appear stable. Superimposed degenerative changes are also present. Dictated by: James Solomon M.D. on 10/30/2020 at 13:55 Approved by: James Solomon M.D. on 10/30/2020 at 14:02
== END ==
PROVIDERS: Family Provider Family Medicine; PCP Family Medicine; Referring Provider Family Medicine; Visit Provider Family Medicine
DX: M54.5 Low back pain (principal); Z87.81 Personal history of (healed) traumatic fracture
CPT/HCPCS: 72100

== ENCOUNTER → 2020-11-07 12:22 | Outpatient (CLI) | payer MEDICARE, SELFPAY ==
[2020-06-04 08:45] VITALS: BMI 19.1
--- NOTE | 2020-11-07 12:24 | DI.MRI.S_ITS ---
PROCEDURE: MR LUMBAR SPINE WO CON INDICATIONS: compression fractures TECHNIQUE: Noncontrast sagittal T1 spin echo and T2 fast echo, sagittal STIR, axial T1 and T2 fast spin echo through the lumbar spine. In cases with scoliosis, additional coronal T2 fast spin echo may be performed. COMPARISON: None. FINDINGS: Image quality: Excellent. Alignment and Curvature: Grade 1 anterolisthesis of L4 on L5 Bone Marrow: Multilevel degenerative endplate sclerosis and spurring. Diffuse facet arthropathy. Chronic L2 and L3 compression fractures with mild height loss. No acute marrow edema. No acute fracture. Patchy replacement of the normal marrow fat signal intensity within the visualized bony pelvis Spinal Cord: Conus medullaris terminates at the L1 level. Visualized cord demonstrates normal signal and size. Paraspinous Soft Tissues: There is nonspecific, dependent posterior subcutaneous soft tissue edema from level of L1-L5 T12-L1: Normal appearance. L1-L2: Mild canal narrowing. Lateral recesses appear grossly patent. Mild bilateral foraminal stenoses. L2-L3: Dorsal epidural lipomatosis. Mild canal narrowing. Lateral recesses appear grossly patent. Mild bilateral foraminal narrowing L3-L4: Dorsal epidural lipomatosis. Mild canal narrowing. Lateral recesses appear grossly patent. No foraminal narrowing. L4-L5: Mild canal narrowing. Partial effacement of both lateral recesses with bilaterally symmetric appearance. No foraminal stenoses L5-S1: No high-grade canal narrowing. Lateral recesses appear grossly patent. No foraminal stenoses IMPRESSION: Chronic appearing mild L2 and L3 compression fractures. No high-grade canal stenosis. Mild bilateral foraminal narrowing at L1-L2, L2-L3. Patchy diffuse replacement of the normal marrow fat signal intensity seen in the bony pelvis. This could be reflecting severe chronic anemia although cannot exclude other marrow infiltrative processes such as metastases, myelofibrosis among other possibilities. Please correlate clinically. A bone scan , CT or contrast enhanced pelvis MRI could be considered as clinically relevant. Dictated by: Bean Reyes M.D. on 11/07/2020 at 14:34 Approved by: Bean Reyes M.D. on 11/07/2020 at 14:42
== END ==
PROVIDERS: Family Provider Family Medicine; PCP Family Medicine; Referring Provider Family Medicine; Visit Provider Family Medicine
DX: S32.000A Wedge compression fracture of unspecified lumbar vertebra, initial encounter for closed fracture (principal); M48.061 Spinal stenosis, lumbar region without neurogenic claudication
CPT/HCPCS: 72148

== ENCOUNTER → 2020-12-12 12:14 | Outpatient (CLI) | payer MEDICARE, SELFPAY ==
[2020-06-04 08:45] VITALS: BMI 19.1
--- NOTE | 2020-12-12 12:15 | DI.NM.S_ITS ---
PROCEDURE: NM BONE SCAN WHOLE BODY RADIOPHARMACEUTICAL: 19.6 mCi Tc-99m MDP IV. INDICATIONS: bone abnormality on MR TECHNIQUE: Delayed whole-body scintigrams were obtained approximately 3-4 hours after intravenous injection of radiotracer. Anterior and posterior views were acquired from vertex to feet. Additional left and right oblique views of the lumbar spine and pelvis were obtained. COMPARISON: [facility], MR, MR LUMBAR SPINE WO CON, 11/07/2020, 12:39. FINDINGS: Intense radiotracer uptake noted in the posterior aspect of the right 8th rib may be related to a rib fracture, however other etiologies including infection and neoplastic process can not be differentiated without additional imaging. Recommend right rib x-ray series for additional evaluation. Increased radiotracer uptake identified in the cervical spine, thoracic spine and lumbar spine likely related to osteoarthritis. Increased radiotracer uptake identified in the shoulders bilaterally in the knees bilaterally compatible with osteoarthritis. No abnormal soft tissue uptake. Activity in the kidneys is normal and symmetric. IMPRESSION: 1. Abnormal radiotracer uptake involving the posterior aspect of the right 8th rib. Recommend right rib plain film x-ray series to aid in differentiating rib fracture from etiologies. 2. Osteoarthritis. Dictated by: Kia Mccain MD, PhD on 12/12/2020 at 17:05 Approved by: Kia Mccain MD, PhD on 12/12/2020 at 17:10
== END ==
PROVIDERS: Family Provider Family Medicine; PCP Family Medicine; Referring Provider Family Medicine; Visit Provider Family Medicine
DX: R93.7 Abnormal findings on diagnostic imaging of other parts of musculoskeletal system (principal); M19.90 Unspecified osteoarthritis, unspecified site
CPT/HCPCS: 78306; A9503

== ENCOUNTER → 2021-01-02 14:16 | Outpatient (CLI) | payer MEDICARE, SELFPAY ==
[2020-06-04 08:45] VITALS: BMI 19.1
--- NOTE | 2021-01-02 | DI.MG.S_ITS ---
BILATERAL DIGITAL SCREENING MAMMOGRAM 3D/2D WITH CAD POST LUMPECTOMY: 01/02/2021 CLINICAL: Routine screening. Personal history of left breast cancer. Comparison is made to exams dated: 12/14/2019 mammogram, 12/02/2018 mammogram, 10/15/2016 mammogram, 11/09/2017 mammogram, and 10/15/2017 [facility]. There are scattered fibroglandular elements in both breasts. Current study was also evaluated with a Computer Aided Detection (CAD) system. There is a benign mass in the left breast. There also are benign vascular calcifications in both breasts. No significant masses, calcifications, or other findings are seen in either breast. There has been no significant interval change. IMPRESSION: BENIGN There is no mammographic evidence of malignancy. A 1 year screening mammogram is recommended. This exam was interpreted at Station ID: [id number]. NOTE: For mammograms, a report in lay terms will be sent to the patient. Approximately 15% of breast malignancies will not be visualized mammographically. In the management of a palpable breast mass, a negative mammogram must not discourage biopsy of a clinically suspicious lesion. Electronically Signed By: Junior Rodgers M.D., jr/bimal:01/02/2021 15:37:13 letter sent: Normal Exam ACR BI-RADS Category 2: Benign Finding(s) [id number]
== END ==
PROVIDERS: Family Provider Family Medicine; PCP Family Medicine; Referring Provider Family Medicine; Visit Provider Family Medicine
DX: Z12.31 Encounter for screening mammogram for malignant neoplasm of breast (principal); Z85.3 Personal history of malignant neoplasm of breast
CPT/HCPCS: 77063; 77067

== ENCOUNTER 2021-02-23 16:37 | Observation (INO) | payer MEDICARE, SELFPAY ==
[2020-06-04 08:45] VITALS: BMI 19.1
[2021-02-23] VITALS (10 sets, daily range): BP systolic 100–115; BP diastolic 55–60; PULSE 69–93; RESP 16–20; TEMP 36.4–36.6; O2SAT 96–99; BMI 26.5
--- NOTE | 2021-02-23 16:52 | DI.RAD.S_ITS ---
PROCEDURE: XR ANKLE LT MIN 3V INDICATIONS: fall TECHNIQUE: 3 views of the ankle were acquired. COMPARISON: [facility], ANKLE 3 VIEWS LEFT, 05/03/2012, 10:50. [facility], ANKLE 3 VIEWS LEFT, 05/18/2012, 11:38. [facility], ANKLE 3 VIEWS LEFT, 06/30/2012, 15:19. FINDINGS: Bones: There is a mildly to moderately displaced, acute fracture of the distal fibular metaphysis, above the level of the previously placed screw. No associated acute fracture of the distal fibula can be seen. There is a stable, chronic distal fibular fracture seen. The talar dome demonstrates no jostin abnormality. Soft tissues: Soft tissue swelling is seen. Evaluation is limited, secondary to the patient's inability to fully cooperate with the examination. IMPRESSION: Mildly to moderately displaced acute fracture of the distal tibial metaphysis. Postoperative change of the medial malleolus can be seen. Stable, chronic distal fibular fracture. Dictated by: Darci George M.D. on 02/23/2021 at 16:43 Approved by: Darci George M.D. on 02/23/2021 at 16:45
--- NOTE | 2021-02-23 18:24 | ED.LOWEXIN ---
HPI - Extremity Injury (Lower) General Chief Complaint: Extremity Injury, Lower Stated Complaint: LEFT ANKLE INJURY Time Seen by Provider: 02/23/21 17:18 Source: patient and family (daughter at bedside, on phone) Mode of arrival: Wheelchair Limitations: no limitations History of Present Illness HPI Narrative: This is a 75-year-old female comes with complaint of left ankle injury. She is getting out of her chair today with the assistance of her when she started falling. They sort of lowered/fell to the floor. Both she and her states she did not hit her head. But afterwards she had assistance by EMS back into her chair. And then developed ankle pain L. Patient denies any pain or injuries elsewhere. She appeared to have some mild swelling of the left side of her face but both the patient and the daughter states this is normal. Patient denies headache. Neck or back pain. She denies chest pain or shortness of breath. No nausea vomiting. No other GI or urinary symptoms. She denies any numbness tingling. She does have toe rings on both her right and left feet. Ring was removed from the left foot without issue and given to the daughter. Patient has a ?internal tremor?, memory issues, history of breast cancer, hypertension and hypothyroidism and lumbar compression fracture. Patient does use a walker but requires quite a bit of a cyst at home. She has home health care for part of the day. Nursing also noted she has a sacral decubitus. Related Data Home Medications Medication Instructions Recorded Confirmed flaxseed oil 1,000 mg capsule 1,000 mg PO DAILY #0 07/30/11 02/23/21 Calcium 1 tab PO DAILY 06/01/18 02/23/21 Disabled [address]ing Permit 1 ea MISCELLANEOUS DIRECTED 06/01/18 12/30/20 Vitamin B 100 mg PO DAILY 06/01/18 02/23/21 ascorbic acid (vitamin C) 500 mg 500 mg PO DAILY 06/01/18 12/30/20 tablet (Vitamin C) multivitamin 1 tab PO DAILY 06/01/18 02/23/21 vitamin E 400 unit capsule 400 unit PO DAILY 06/01/18 02/23/21 cholecalciferol (vitamin D3) 25 4,000 unit PO DAILY 03/06/19 02/23/21 mcg (1,000 unit) capsule pramipexole 0.125 mg tablet 0.25 mg PO TID tab 02/15/20 02/23/21 tamsulosin 0.4 mg capsule (Flomax) 0.4 mg PO BID 09/09/20 02/23/21 acetaminophen 325 mg capsule 650 mg PO Q4H PRN 02/23/21 02/23/21 (Tylenol) ascorbic acid (vitamin C) 100 mg 100 mg PO DAILY 02/23/21 02/23/21 tablet (Vitamin C) cholestyramine-aspartame 4 gram 1 ea PO DAILY 02/23/21 02/23/21 oral powder for susp in a packet (Prevalite) clonazepam 0.25 mg disintegrating 0.25 mg PO BID 02/23/21 02/23/21 tablet furosemide 40 mg tablet 40 mg PO DAILY 02/23/21 02/23/21 ibuprofen 100 mg tablet 200 mg PO Q6H PRN 02/23/21 02/23/21 lactobacillus combination no.4 3 DAILY 02/23/21 billion cell capsule (Probiotic) levothyroxine 100 mcg tablet 100 mcg PO DAILY 02/23/21 02/23/21 (Levoxyl) potassium chloride 10 mEq 10 meq PO DAILY 02/23/21 02/23/21 tablet,extended release(part/cryst) trazodone 50 mg tablet 50 mg PO BEDTIME 02/23/21 02/23/21 Previous Rx's Medication Instructions Recorded alendronate 70 mg tablet 70 mg PO Burt@0730 #12 tab 05/13/20 potassium chloride 10 mEq 10 meq PO DAILY #90 cap 09/27/20 capsule,extended release bupropion HCl 150 mg 24 hr tablet, 150 mg PO 0800 90 Days #90 tab 10/14/20 extended release clonidine HCl 0.1 mg tablet 0.1 mg PO DAILY #90 tab 11/06/20 Allergies Allergy/AdvReac Type Severity Reaction Status Date / Time adhesive Allergy Mild BLISTERING Verified 12/30/20 13:45 codeine [CODEINE] Allergy Mild CRY AND Verified 12/30/20 13:45 SLEEP citalopram AdvReac Mild Anxiety Verified 12/30/20 13:45 Review of Systems Review of Systems ROS Unobtainable: All systems reviewed & are unremarkable except as noted in HPI and below Patient History Medical History (Updated 02/23/21 @ 21:18 by Tarik Jeff MD) Abnormal gait (04/19/17) Acquired hypothyroidism Age related osteoporosis Anxiety (01/09/16) Bone anomaly Closed fracture of left hip Compression fx, lumbar spine Depression (07/30/11) Essential hypertension Essential tremor Fracture of left wrist 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 Mother No problems noted. Social History marital status: household members: spouse Smoking Status: Former smoker Tobacco: How many years used: 60 second hand exposure: No alcohol intake: former substance use type: does not use Smoking Status: Former smoker alcohol intake frequency: 0-2 drinks per day Alcohol type: wine Substance Use Type: does not use Exam Narrative Exam Narrative: GEN: Patient appears in mild distress. HEAD: No evidence of trauma, no raccoon/Coleman sign. NECK: Nontender, painless range of motion, trachea midline Negative Nexus criteria, there is no line tenderness, distracting injury, altered mental status, neuro deficit, recent EtOH. EYES: PERRLA, EOMI ENT: External inspection normal, trachea is midline, TM's are normal no hemotypanum, Nares are clear, no septal hematoma, no dental or oral injury, airway is normal and with normal occlusion, No bony tenderness RESP: Chest is nontender and has symmetric movement, no ecchymosis, breath sounds are normal no crackles, wheezes or rales CVS: Heart sounds are normal, no murmur noted, No JVD. ABG/GI: Nontender, soft, normal bowel sounds, no distention, no organomegaly, pelvic rock is negative NEURO: Oriented AOx3, neuro is grossly intact, sensation and motor is normal all 4 extremities moving, cranial nerves II through XII are intact, GCS is 15 PSYCH: Normal mood and affect SKIN: Intact, warm and dry, no crepitus. Positive for sacral decubitus. BACK: No CVA tenderness, no vertebral tenderness, no step-off's, no crepitus EXT: Patient has pain in the right ankle. 2+ pulses bilaterally. Nose minimal swelling appreciated. No ecchymosis. Are nontender, no pedal edema, normal color and temperature, normal range of motion of extremities with normal tendon exam, 2+ pulses in all four extremities. Initial Vital Signs Initial Vital Signs: Vital Signs Temperature 97.5 F L 02/23/21 16:48 Pulse Rate 93 H 02/23/21 16:48 Respiratory Rate 20 02/23/21 16:48 Blood Pressure 105/55 L 02/23/21 16:48 Pulse Oximetry 98 02/23/21 16:48 Scores GCS [place] coma scale eye opening: Spontaneous [place] coma scale verbal response: Orientated [place] coma scale motor response: Obey commands [place] coma scale total score: 15 Course Orders Ordered: ED Orders 02/23/21 19:00 Basic Metabolic Panel Stat COVID19 - ADMIT (ELECTRONIC LAB TECHNICIAN swab/PCR) Stat Complete Blood Count AUTO DIFF Stat 02/23/21 19:39 Consult to Orthopedic Surgery Urgent Acetaminophen (Acetaminophen 325 Mg Tablet) 650 mg PO Q6HR PRN PRN Reason: Fever/Mild Pain (1-3) Last Admin: 02/23/21 21:47 Dose: 650 mg Documented by: KITTY Bupropion HCl (Bupropion Xl 150 Mg Tab) 150 mg PO 0800 [facility] Cholestyramine Resin (Cholestyramine/Aspartame 4 Gm Pack) 4 gm PO DAILY [facility] Clonazepam (Clonazepam 0.5 Mg Tablet) 0.25 mg PO BID [facility] Last Admin: 02/23/21 21:47 Dose: 0.25 mg Documented by: KITTY Clonidine HCl (Clonidine 0.1 Mg Tablet) 0.1 mg PO DAILY [facility] Dextrose/Sodium Chloride (Dextrose 5%-0.45% Ns) 1,000 mls @ 60 mls/hr IV CONT [facility] Last Admin: 02/23/21 21:47 Dose: 60 mls/hr Documented by: KITTY Levothyroxine Sodium (Levothyroxine 100 Mcg Tablet) 100 mcg PO 0630 [facility] Multivitamins/Calcium (Multivit,Calc,Mins/Iron/Folic 1 Tablet) 1 tab PO DAILY [facility] Naloxone HCl (Naloxone 0.4 Mg/Ml Vial) 0.2 mg IV Q2MIN PRN PRN Reason: Opiate Reversal Ondansetron HCl (Ondansetron 4 Mg/2 Ml Inj) 4 mg IV Q4HR PRN PRN Reason: Nausea And Vomiting Oxycodone HCl (Oxycodone Ir 5 Mg Tablet) 5 mg PO Q6HR PRN PRN Reason: Pain, Moderate (4-6) Potassium Chloride (Potassium Chloride 10 Meq Tab) 10 meq PO DAILY [facility] Pramipexole Dihydrochloride (Pramipexole 0.125 Mg Tablet) 0.25 mg PO 0700,1400,2000 [facility] Tamsulosin HCl (Tamsulosin 0.4 Mg Capsule) 0.4 mg PO BID [facility] Trazodone HCl (Trazodone 50 Mg Tablet) 50 mg PO BEDTIME [facility] Vitamin D (Cholecalciferol (Vitamin D3) 1,000 Unit Tablet) 4,000 unit PO DAILY [facility] Consultations Consultation #1: Dr. Benedict, orthopedics. Distal tibial fracture with hardware present which does appear to be intact. Aware of patient and plan for admission. Splint. Consultation #2: [facility]er accepts for observation, reviewed patients xray findings. Ortho was consulted. Noted hemoglobin was 8.3 today last prior was 12. Patient's calcium is 10.4 but no other major lab abnormalities. Patient is otherwise clinically cleared. We did discuss that there was a social aspect of patient's admission. Vital Signs Vital signs: Vital Signs - 8 hr 02/23/21 19:01 02/23/21 19:30 Pulse Rate 69 70 Respiratory Rate 18 Blood Pressure 100/55 L Pulse Oximetry 99 98 MDM - Extremity Injury (Lower) Lab Data Result diagrams: 02/23/21 19:00 02/23/21 19:00 Labs: Lab Results 02/23/21 02/23/21 02/23/21 Range/Units 19:00 19:00 19:00 WBC 9.4 (4.5-11.0) X10^3/uL RBC 3.13 L (4.0-5.2) X10^6/uL Hgb 8.3 L (12.0-16.0) g/dL Hct 25.5 L (36-46) % MCV 81.5 (80-100) fL MCH 26.6 (26-34) PG MCHC 32.7 (30-36) % RDW 16.2 H (11.6-14.8) % Plt Count 506 H (150-400) X10^3/uL Neut % (Auto) 74.3 (50-75) % Lymph % (Auto) 16.7 L (25-40) % [place] % (Auto) 7.1 (3-14) % Eos % (Auto) 1.3 L (2-4) % Baso % (Auto) 0.6 (0-2) % Neut # (Auto) 6900 (4130-0396) /uL Lymph # (Auto) 1600 (1595-2945) /uL [place] # (Auto) 700 (0-900) /uL Eos # (Auto) 100 (0-450) /uL Baso # (Auto) 100 (0-100) /uL Sodium 139 (137-145) mmol/L Potassium 4.2 (3.4-5.1) mmol/L Chloride 103 (98-107) mmol/L Carbon Dioxide 25 (22-32) mmol/L BUN 16 (7-17) mg/dL Creatinine 0.91 (0.52-1.04) mg/dL Estimated GFR 59.9 L (>60) mL/min BUN/Creatinine Ratio 17.6 (6-22) Glucose 104 (80-110) mg/dL Calcium 10.4 H (8.4-10.2) mg/dL SARS-CoV-2 (PCR) Negative (Negative) Imaging Data Extremity x-ray #1: Radiologist's Impression: Georgie Davison Jaja??75??F??1945 ? Allergy/Adv: adhesive, codeine, citalopram (More??) Close Ankle X-Ray (Signed) Darci George - 02/23/21 Mammogram Screening (Signed) Junior Rodgers - 01/02/21 Bone Scan Nuclear Medicine (Signed) Kia Mccain - 12/12/20 Lumbar Spine MRI (Signed) Bean Reyes - 11/07/20 Lumbar Spine X-Ray (Signed) James Solomon - 10/30/20 Lumbar Spine X-Ray (Signed) Bean Reyes - 09/12/20 Lumbar Spine X-Ray (Cancelled) 09/12/20 Hip X-Ray (Signed) Bean Reyes - 09/12/20 Lumbar Spine X-Ray (Signed) Emma Dunbar - 08/27/20 Lumbar Spine X-Ray (Signed) Bean Reyes - 06/04/20 Knee X-Ray (Signed) Bean Reyes - 06/04/20 Hip X-Ray (Signed) Bean Reyes - 06/04/20 Vascular Ultrasound (Signed) Kia Mccain - 02/01/20 Mammogram Screening (Signed) Chelsea Elmore - 12/14/[address] (Signed) Bean Reyes - 09/19/19 Scapular X-Ray (Signed) DorisDarci lucio - 09/16/19 Shoulder X-Ray (Signed) Darci George - 09/16/19 Lower Extremity MRI (Signed) Bean Reyes - 02/04/19 Mammogram Screening (Signed) Jerad Patel - 12/02/18 Telemetry Strips 06/01/18 Wrist X-Ray (Signed) Eunice Schroeder - 06/01/18 Hip X-Ray (Signed) Euince Schroeder - 06/01/18 Chest X-Ray (Signed) SchroederEunice bermudez - 06/01/18 Hip X-Ray (Signed) Kia Mccain - 06/01/18 Mammogram Diagnostic (Addendum) Dot Sharpe - 11/09/17 Radiology - Historical 02/04/16 Launch?[place] [address] XRay Report Signed Patient: Georgie Davison MR#: [id number] : 1945 Acct:[id number] Age/Sex: 75 / F Date of Service: 02/23/21 Loc: ED Accession Number: [id number] ?? Procedure: XR ankle LT min 3V Ordering Provider: Humberto Barragan D.O. PROCEDURE:? XR ANKLE LT MIN 3V ? INDICATIONS:? fall ? TECHNIQUE:? 3 views of the ankle were acquired.? ? COMPARISON:? [facility], CR, ANKLE 3 VIEWS LEFT, 05/03/2012, 10:50.? [facility], CR, ANKLE 3 VIEWS LEFT, 05/18/2012, 11:38.? [facility], , ANKLE 3 VIEWS LEFT, 06/30/2012, 15:19. ? FINDINGS:? ? Bones:? There is a mildly to moderately displaced, acute fracture of the distal fibular metaphysis, above the level of the previously placed screw. ? No associated acute fracture of the distal fibula can be seen.? There is a stable, chronic distal fibular fracture seen. ? The talar dome demonstrates no jostin abnormality.? ? Soft tissues:? Soft tissue swelling is seen. ? Evaluation is limited, secondary to the patient's inability to fully cooperate with the examination.? ? ? IMPRESSION:? Mildly to moderately displaced acute fracture of the distal tibial metaphysis. ? Postoperative change of the medial malleolus can be seen. ? Stable, chronic distal fibular fracture. ? ? Dictated by: Darci George M.D. on 02/23/2021 at 16:43 ? ? Approved by: Darci George M.D. on 02/23/2021 at 16:45? MDM Narrative Medical decision making narrative: This is a 75-year-old female with a distal fracture of the tibia. Patient case was discussed with Orthopedic surgery. Placed in the splint in department. After discussion with patient and family there is quite a bit of concern about patient's safety secondary to fall risk and requiring assistance. Patient required 2 staff minimum to transfer from wheelchair to bed and was quite difficult. Discharge Plan Departure Patient Disposition: Admitted as Observation Clinical Impression: Closed tibial fracture, Decubitus ulcer of sacral area, Fall, Anxiety Admit Date/Time: 02/23/21 19:44 Admit Provider: Tarik Jeff
[2021-02-23 19:17] LABS: Add Manual Diff / Slide Review NO; Basophils Absolute Auto 100 /uL (0-100); Basophils Percent Auto 0.6 % (0-2); Eosinophils Absolute Auto 100 /uL (0-450); Eosinophils Percent Auto 1.3 % (2-4); Hematocrit 25.5 % (36-46); Hemoglobin 8.3 g/dL (12.0-16.0); Lymphocytes Absolute Auto 1600 /uL (1100-4500); Lymphocytes Percent Auto 16.7 % (25-40); Mean Corpuscular HGB Conc 32.7 % (30-36); Mean Corpuscular Hemoglobin 26.6 PG (26-34); Mean Corpuscular Volume 81.5 fL (80-100); Monocytes Absolute Auto 700 /uL (0-900); Monocytes Percent Auto 7.1 % (3-14); Neutrophils Absolute Auto 6900 /uL (1500-7000); Neutrophils Percent Auto 74.3 % (50-75); Platelet Count 506 X10^3/uL (150-400); Red Blood Cell Count 3.13 X10^6/uL (4.0-5.2); Red Cell Distribution Width 16.2 % (11.6-14.8); White Blood Cell Count 9.4 X10^3/uL (4.5-11.0)
[2021-02-23 19:26] LABS: BUN Creatinine Ratio 17.6 (6-22); Blood Urea Nitrogen 16 mg/dL (7-17); Calcium 10.4 mg/dL (8.4-10.2); Carbon Dioxide 25 mmol/L (22-32); Chloride 103 mmol/L (98-107); Estimated Glomerular Filt Rate 59.9 mL/min (>60); Glucose 104 mg/dL (80-110); HEMOLYSIS < 15 (0-50); Potassium 4.2 mmol/L (3.4-5.1); Sodium 139 mmol/L (137-145)
[2021-02-23 20:34] LABS: COVID19 - ADMIT (NP swab/PCR) Negative (Negative)
[2021-02-23] MEDS: clonazePAM 0.5 MG TABLET 0.25 MG PO (21:47)
[2021-02-23] MEDS: DEXTROSE 5%-0.45% NS 1,000 ML 60 ML IV (21:47)
[2021-02-23] MEDS: ACETAMINOPHEN 325 MG TABLET 650 MG PO (21:47)
[2021-02-24] VITALS (8 sets, daily range): BP systolic 101–113; BP diastolic 50–56; PULSE 81–93; RESP 15–18; TEMP 36.4–36.6; O2SAT 96–98
--- NOTE | 2021-02-24 06:28 | PC.NURSE ---
Called Dr. Jeff at 0600. Patient has tried twice to void, once up to the bedside commode and second time by bedpan. Both attempts were unsuccessful. Order to insert and maintain a menjivar catheter given.
[2021-02-24] MEDS: LEVOTHYROXINE 100 MCG TABLET PO (06:29)
[2021-02-24] MEDS: PRAMIPEXOLE 0.25 MG TABLET PO ×3 (07:00→20:46)
--- NOTE | 2021-02-24 08:22 | OT.IPNOTE ---
OT order received. Chart reviewed. Pt not yet seen by ortho. Will hold for ortho assessment at this time. Per chart, pt is NWB. Will check back tomorrow 02/25.
--- NOTE | 2021-02-24 08:25 | PT-IP ANOTE ---
PT spoke with nsg who reports that ortho has not been by yet and that pt is NPO for possible surgery. Will hold PT today.
--- NOTE | 2021-02-24 08:51 | PM.HP.1 ---
History of Present Illness History of Present Illness Date Patient Seen: 02/24/21 Time Patient Seen: 08:52 Chief complaint: LEFT ANKLE INJURY Narrative: 75-year-old female who normally sees Dr. Junior Huerta who presented to the [facility] Emergency Department on day of admission after falling at home. She was attempting to transfer and slipped down. Required EMS to help get her back into a chair. She later discover that her ankle was painful and she was unable to bear weight on it prompting her to come to the emergency department In the emergency department she was found to have an acute fracture of the left distal tibial metaphysis. She was unable to assisted all with transfers (let alone take any steps), requiring at least 2 individuals for assistance and was admitted for management. Patient really unable to provide details of the above, does indeed seem to have some significant cognitive issues and is very slow to respond etcetera. 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 It has been identified at times as a form of parkinsonism, thought to be possibly related to hydrocephalus, and there was some thoughts that it may be related in part to patient's severe anxiety and mental health issues. She seen multiple specialists and it is not exactly clear what is going on. She describes herself as a sort of inner tremor. It manifests in part as severe difficulty with gait and weakness. Also there is a mild tremor present, and both neurology and neuro surgery believe there is an element of mild cognitive impairment present as well. She also has significant urinary issues with significant urinary retention. She has been started on Flomax to help with complete emptying of her bladder. She has primarily had difficulty with nocturia. Whether not this is connected to her neuro degenerative disorder is unclear. It was clear however the patient could not be managed in her home care setting with this acute fracture and she was admitted for further evaluation and possibly surgical intervention. Orthopedic surgery was consulted via the emergency department and notified of patient's admission. 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 Mother No problems noted. Social History: household members spouse Prior Living Arrangements House Safety & Behavioral: Feels Safe in Current Yes Environment Been Physically Hurt or No Threatened By a Person Suicidal Ideation Description None Suicide Plan Description No Plan Tobacco & Substance use: Tobacco type cigarettes Smoking Status Former smoker alcohol intake former alcohol intake frequency 0-2 drinks per day Substance Use Type does not use Meds Home Medications and Allergies Home Medications Medication Instructions Recorded Confirmed Type flaxseed oil 1,000 mg capsule 1,000 mg PO DAILY #0 07/30/11 02/23/21 History Calcium 1 tab PO DAILY 06/01/18 02/24/21 History Disabled Parking Permit 1 ea MISCELLANEOUS DIRECTED 06/01/18 02/24/21 History Vitamin B 100 mg PO DAILY 06/01/18 02/23/21 History ascorbic acid (vitamin C) 500 mg 500 mg PO DAILY 06/01/18 02/24/21 History tablet (Vitamin C) multivitamin 1 tab PO DAILY 06/01/18 02/23/21 History vitamin E 400 unit capsule 400 unit PO DAILY 06/01/18 02/23/21 History cholecalciferol (vitamin D3) 25 4,000 unit PO DAILY 03/06/19 02/23/21 History mcg (1,000 unit) capsule pramipexole 0.125 mg tablet 0.25 mg PO TID tab 02/15/20 02/23/21 History alendronate 70 mg tablet 70 mg PO Burt@0730 #12 tab 05/13/20 02/23/21 Rx tamsulosin 0.4 mg capsule (Flomax) 0.4 mg PO BID 09/09/20 02/23/21 History potassium chloride 10 mEq 10 meq PO DAILY #90 cap 09/27/20 02/24/21 Rx capsule,extended release bupropion HCl 150 mg 24 hr tablet, 150 mg PO 0800 90 Days #90 tab 10/14/20 02/23/21 Rx extended release clonidine HCl 0.1 mg tablet 0.1 mg PO DAILY #90 tab 11/06/20 02/23/21 Rx acetaminophen 325 mg capsule 650 mg PO Q4H PRN 02/23/21 02/23/21 History (Tylenol) ascorbic acid (vitamin C) 100 mg 100 mg PO DAILY 02/23/21 02/23/21 History tablet (Vitamin C) cholestyramine-aspartame 4 gram 1 ea PO DAILY 02/23/21 02/23/21 History oral powder for susp in a packet (Prevalite) clonazepam 0.25 mg disintegrating 0.25 mg PO BID 02/23/21 02/23/21 History tablet furosemide 40 mg tablet 40 mg PO DAILY 02/23/21 02/23/21 History ibuprofen 100 mg tablet 200 mg PO Q6H PRN 02/23/21 02/23/21 History levothyroxine 100 mcg tablet 100 mcg PO DAILY 02/23/21 02/23/21 History (Levoxyl) potassium chloride 10 mEq 10 meq PO DAILY 02/23/21 02/23/21 History tablet,extended release(part/cryst) trazodone 50 mg tablet 50 mg PO BEDTIME 02/23/21 02/23/21 History Lactobacillus acidophilus 2 3,000 mmu cells PO DAILY 02/24/21 02/24/21 History billion cell tablet Allergies Allergy/AdvReac Type Severity Reaction Status Date / Time adhesive Allergy Mild BLISTERING Verified 12/30/20 13:45 codeine [CODEINE] Allergy Mild CRY AND Verified 12/30/20 13:45 SLEEP citalopram AdvReac Mild Anxiety Verified 12/30/20 13:45 Review of Systems Review of Systems Narrative: Patient seems to have some significant cognitive issues, able to tell me that her ankle does not hurt but that she is having neck pain she thinks from trying to hold her head up. Really denies any other symptoms. ROS: Yes unobtainable due to mental condition Exam Vital Signs (past 8 hours): - 02/24/21 03:20 02/24/21 08:07 Temperature 97.8 F 97.6 F Pulse Rate 93 H 81 Respiratory Rate 15 18 Blood Pressure 103/50 L 101/50 L Pulse Oximetry 96 96 Oxygen Delivery Method Room Air Oxygen Flow Rate 0 Narrative Exam Narrative: Elderly female who is in no obvious distress sitting in her hospital bed with support of her neck HEENT-normocephalic atraumatic PERRLA Neck-no bruits no lymphadenopathy Lungs-good breath sounds clear Heart-regular rate and rhythm Abdomen-positive bowel tones Extremities-left ankle in walking boot not further examined, trace edema at the ankle on the right Skin-very mild erythema to the right of midline in the sacrum but no actual skin breakdown or pressure sore present Objective Labs Result Diagrams: 02/23/21 19:00 02/23/21 19:00 Labs: Laboratory Results - last 24 hr 02/23/21 02/23/21 02/23/21 19:00 19:00 19:00 WBC 9.4 RBC 3.13 L Hgb 8.3 L Hct 25.5 L MCV 81.5 MCH 26.6 MCHC 32.7 RDW 16.2 H Plt Count 506 H Neut % (Auto) 74.3 Lymph % (Auto) 16.7 L [place] % (Auto) 7.1 Eos % (Auto) 1.3 L Baso % (Auto) 0.6 Neut # (Auto) 6900 Lymph # (Auto) 1600 [place] # (Auto) 700 Eos # (Auto) 100 Baso # (Auto) 100 Sodium 139 Potassium 4.2 Chloride 103 Carbon Dioxide 25 BUN 16 Creatinine 0.91 Estimated GFR 59.9 L BUN/Creatinine Ratio 17.6 Glucose 104 Calcium 10.4 H SARS-CoV-2 (PCR) Negative Assessment & Plan Assessment & Plan narrative: 1. Left tibial fracture-patient has been placed in a splint/boot by the ER. Patient has fractured her distal tibia around looks to be a prior repair of a previous fracture, and the screw. Will defer management to Orthopedic surgery. Pain control as necessary. 2. Abnormal gait-this will affect her ability to recover from above fracture. Will have her seen by Physical therapy and Occupational therapy here. Will need to coordinate with orthopedic surgery regarding restrictions and limitations but will need to either identify increased resources for patient to return home or perhaps she will need placement in half-way. 3. -patient with significant issues emptying of bladder. Had greater than 500 cc retained in bladder after voiding this morning. Grider catheter has been placed and will remain for now. Flomax which is been started by Urology previously and felt to be helpful has been continued. 4. Hypothyroidism-continue patient's usual replacement dose of levothyroxine 5. Behavioral health-patient with longstanding history of anxiety and or depression and on top of this clearly has some cognitive disorders. Will continue usual medications including the bupropion but also she takes clonazepam and clonidine. No changes in these for now. Will defer further management to her PCP 6. VTE prophylaxis-Lovenox when approved by Orthopedic surgery 7. Code status-patient really unable to provide or engage in discussion. Previously has been full code as per Dr. Huerta and that order has been placed today as well. 8. Disposition-as above patient I think has been failing at home for some time due to this slow neurologic disorder causing increased weakness and abnormality of her gait. In addition apparently her spouse who has been her primary caregiver has had some sort of cardiac procedure or surgery fairly recently which his affected his ability to provide care in the home setting as well. I Will have care management team work to find additional resources either at home or make plans for placement at least temporarily in half-way while this left ankle fracture heals etcetera. The complicating factor is of course this acute left ankle fracture which has further complicated her ability to be managed in the home environment. Time Spent With Patient Critical Care time: I spent a total of [] minutes of critical care time on this patient's care today; this time is exclusive of procedural time.
[2021-02-24] MEDS: clonazePAM 0.5 MG TABLET 0.25 MG PO ×2 (09:07→20:46)
[2021-02-24] MEDS: CHOLECALCIFEROL (VITAMIN D3) 1,000 UNIT TABLET 4000 UNIT PO (09:08)
[2021-02-24] MEDS: CHOLESTYRAMINE/ASPARTAME 4 GM PACK PO (09:08)
[2021-02-24] MEDS: POTASSIUM CHLORIDE 10 MEQ TAB PO (09:08)
[2021-02-24] MEDS: TAMSULOSIN 0.4 MG CAPSULE PO ×2 (09:09→20:46)
[2021-02-24] MEDS: MULTIVIT,CALC,MINS/IRON/FOLIC 1 TABLET 1 TAB PO (09:09)
[2021-02-24] MEDS: cloNIDine 0.1 MG TABLET PO (09:09)
[2021-02-24] MEDS: buPROPion XL 150 MG TAB PO (09:10)
[2021-02-24] MEDS: ACETAMINOPHEN 325 MG TABLET 650 MG PO ×2 (09:20→14:40)
--- NOTE | 2021-02-24 10:14 | P.CONS_ITS ---
History of Present Illness Consult details Date Patient Seen: 02/24/21 Time Patient Seen: 10:00 Chief complaint: LEFT ANKLE INJURY Narrative: 75-year-old female who tripped and fell yesterday injuring her left ankle. Patient has a neuro degenerative disorder and has difficulty ambulating. Normally uses a walker or a wheelchair. After the fall she was unable to bear any weight on the left ankle and due to this fact was taken to the emergency room. Patient gives a history of a previous ankle fracture about 18 years ago that was treated surgically. Due to the inability to transfer while in the emergency room, patient was admitted to the hospital. Patient denies any other injuries from the fall. Denies any loss of consciousness. Meds Home Medications and Allergies Home Medications Medication Instructions Recorded Confirmed Type flaxseed oil 1,000 mg capsule 1,000 mg PO DAILY #0 07/30/11 02/23/21 History Calcium 1 tab PO DAILY 06/01/18 02/24/21 History Disabled Parking Permit 1 ea MISCELLANEOUS DIRECTED 06/01/18 02/24/21 History Vitamin B 100 mg PO DAILY 06/01/18 02/23/21 History ascorbic acid (vitamin C) 500 mg 500 mg PO DAILY 06/01/18 02/24/21 History tablet (Vitamin C) multivitamin 1 tab PO DAILY 06/01/18 02/23/21 History vitamin E 400 unit capsule 400 unit PO DAILY 06/01/18 02/23/21 History cholecalciferol (vitamin D3) 25 4,000 unit PO DAILY 03/06/19 02/23/21 History mcg (1,000 unit) capsule pramipexole 0.125 mg tablet 0.25 mg PO TID tab 02/15/20 02/23/21 History alendronate 70 mg tablet 70 mg PO Burt@0730 #12 tab 05/13/20 02/23/21 Rx tamsulosin 0.4 mg capsule (Flomax) 0.4 mg PO BID 09/09/20 02/23/21 History potassium chloride 10 mEq 10 meq PO DAILY #90 cap 09/27/20 02/24/21 Rx capsule,extended release bupropion HCl 150 mg 24 hr tablet, 150 mg PO 0800 90 Days #90 tab 10/14/20 02/23/21 Rx extended release clonidine HCl 0.1 mg tablet 0.1 mg PO DAILY #90 tab 11/06/20 02/23/21 Rx acetaminophen 325 mg capsule 650 mg PO Q4H PRN 02/23/21 02/23/21 History (Tylenol) ascorbic acid (vitamin C) 100 mg 100 mg PO DAILY 02/23/21 02/23/21 History tablet (Vitamin C) cholestyramine-aspartame 4 gram 1 ea PO DAILY 02/23/21 02/23/21 History oral powder for susp in a packet (Prevalite) clonazepam 0.25 mg disintegrating 0.25 mg PO BID 02/23/21 02/23/21 History tablet furosemide 40 mg tablet 40 mg PO DAILY 02/23/21 02/23/21 History ibuprofen 100 mg tablet 200 mg PO Q6H PRN 02/23/21 02/23/21 History levothyroxine 100 mcg tablet 100 mcg PO DAILY 02/23/21 02/23/21 History (Levoxyl) potassium chloride 10 mEq 10 meq PO DAILY 02/23/21 02/23/21 History tablet,extended release(part/cryst) trazodone 50 mg tablet 50 mg PO BEDTIME 02/23/21 02/23/21 History Lactobacillus acidophilus 2 3,000 mmu cells PO DAILY 02/24/21 02/24/21 History billion cell tablet Allergies Allergy/AdvReac Type Severity Reaction Status Date / Time adhesive Allergy Mild BLISTERING Verified 12/30/20 13:45 codeine [CODEINE] Allergy Mild CRY AND Verified 12/30/20 13:45 SLEEP citalopram AdvReac Mild Anxiety Verified 12/30/20 13:45 Exam Vital Signs (past 8 hours): - 02/24/21 03:20 02/24/21 08:07 02/24/21 09:04 Temperature 97.8 F 97.6 F Pulse Rate 93 H 81 82 Respiratory Rate 15 18 Blood Pressure 103/50 L 101/50 L Pulse Oximetry 96 96 97 02/24/21 09:09 Temperature Pulse Rate 81 Respiratory Rate Blood Pressure 101/50 L Pulse Oximetry Oxygen Delivery Method Room Air Oxygen Flow Rate 0 Narrative Exam Narrative: Patient's left foot and ankle or in a walking boot. Patient is able to dorsiflex and plantar flex the toes without any pain or difficulty. Palpable pedal pulses. Brisk cap refill. No sign of any knee swelling or instability. Normal range of motion of the left knee and hip without any pain or discomfort. Compartments are soft. Skin is intact. No sign of any blistering. Objective Labs Result Diagrams: 02/23/21 19:00 02/23/21 19:00 Labs: Laboratory Results - last 24 hr 02/23/21 02/23/21 02/23/21 19:00 19:00 19:00 WBC 9.4 RBC 3.13 L Hgb 8.3 L Hct 25.5 L MCV 81.5 MCH 26.6 MCHC 32.7 RDW 16.2 H Plt Count 506 H Neut % (Auto) 74.3 Lymph % (Auto) 16.7 L [place] % (Auto) 7.1 Eos % (Auto) 1.3 L Baso % (Auto) 0.6 Neut # (Auto) 6900 Lymph # (Auto) 1600 [place] # (Auto) 700 Eos # (Auto) 100 Baso # (Auto) 100 Sodium 139 Potassium 4.2 Chloride 103 Carbon Dioxide 25 BUN 16 Creatinine 0.91 Estimated GFR 59.9 L BUN/Creatinine Ratio 17.6 Glucose 104 Calcium 10.4 H SARS-CoV-2 (PCR) Negative [facility] Medical History Abnormal gait (04/19/17) Acquired hypothyroidism Age related osteoporosis Anxiety (01/09/16) Bone anomaly Closed fracture of left hip Compression fx, lumbar spine Depression (07/30/11) Essential hypertension Essential tremor Fracture of left wrist Hydrocephalus due to abnormality of flow cerebrospinal fluid Incomplete bladder emptying Lumbar compression fracture Malignant neoplasm of breast (01/11/14) Mild cognitive impairment Tremor (04/19/17) Surgical History Status post cholecystectomy Status post colectomy Status post dilation and curettage Status post rotator cuff repair Ventral hernia Family History Father No problems noted. Mother No problems noted. Social History marital status: household members: spouse Tobacco & Substance Use Smoking Status: Former smoker Tobacco: How many years used: 60 second hand exposure: No alcohol intake: former substance use type: does not use Assessment & Plan Assessment & Plan narrative: 75-year-old female status post fall with a minimally displaced distal tibia fracture. Patient will need to being nonweightbearing to the left lower extremity. Patient's x-rays will be run by our foot and ankle specialist Dr. Cárdenas for further recommendations. Time Spent With Patient Critical Care time: I spent a total of 20 minutes of critical care time on this patient's care today; this time is exclusive of procedural time.
--- NOTE | 2021-02-24 11:09 | DI.CT.S_ITS ---
PROCEDURE: CT LE LT W CON INDICATIONS: Left ankle fracture TECHNIQUE: Noncontrast 1-1.5 mm axial sections acquired from above the tibiotalar joint to the bottom of the calcaneus, with coronal and sagittal reformats. COMPARISON: [facility], CR, XR ANKLE LT MIN 3V, 02/23/2021, 16:49. FINDINGS: Image quality: Diagnostic, with note made of motion artifact. Bones: There is a comminuted, mildly to moderately displaced fracture of the distal tibia, with impacted fracture fragments and cortex impacted into the marrow space, as on series 2, image 138 and on series 4, image 83. No acute associated fracture of the adjacent fibula can be seen. There is a remote, largely healed fracture of the distal fibula seen at the level of the syndesmosis. There is a remote, healed distal fibular avulsion fracture. There is a screw seen transfixing a medial malleolar fracture, which appears intact. Soft tissues: Soft swelling is seen surrounding the fracture. There is a mild tibiotalar joint effusion. No focal fluid collections are seen. IMPRESSION: Mildly to moderately displaced fracture of the distal tibia. There are impacted fracture fragments seen, with cortex impacted into the marrow space. Prior postoperative change of the medial malleolus. Remote distal fibular fractures. Dictated by: Darci George M.D. on 02/24/2021 at 10:36 Approved by: Darci George M.D. on 02/24/2021 at 10:40
--- NOTE | 2021-02-24 16:34 | CM.DANOTE ---
DCP/Assessment: Reviewed chart. Patient is a 75yr old female admitted to [facility] with left ankle fx after fall at home. PCP is Dr. Huerta. Primary payor is 1)Medicare 2)[facility]. Attempted to meet with patient this afternoon, no family at bedside and patient sitting in recliner asleep? Spoke with RN whom reports patient groggy this afternoon. Per provider notes patient resides with her spouse/Nehemias in [place]. Orthopedic consult done today and it has not yet been determined whether or not patient will undergo surgery. RN reports that orthopedics will be following up with patient tomorrow 02-25-21. Currently patient is OBS status CM team will be following to determine if that changes. At this time if SNF needed patient/family will be financially responsible for room/board at SNF. INSPECTOR AND CLIPPER currently unclear on patient's cognitive status? If patient requiring additional care giving and has any behavioral issues it would be difficult to find accepting SNF especially during pandemic with shortages in all areas related to penitentiary. INSPECTOR AND CLIPPER to check back with patient on 02-25-21 when she is awake. In addition will touch base with spouse re: his thoughts on d/c plan. Daughter/Kaitlyn also notified [facility] staff that she would like INSPECTOR AND CLIPPER consult and/or to speak with d/c automatic data processing planner. INSPECTOR AND CLIPPER to reach out to spouse to find out who is patient's DPOA. P: Pending. D/C plan will depend on whether or not patient to undergo surgery and her cognitive capability to comprehend next steps. HEATHER Discharge Planning/Care Management CM Discharge Assessment Start: 02/24/21 16:25 Freq: Status: Active Protocol: Document 02/24/21 16:25 HEATHER (Rec: 02/24/21 16:34 HEATHER [id number]) Discharge Planning Assessment Assigned Hyster Driver GHULAM Young DPOA/Assigned Designee Name Nehemias Davison (spouse) ph# Advance Directives? Yes Advance Directives on File No History Provided By Medical Record Prior Living Arrangements House Household Members spouse Type of transporation used prior to Relies on Others admit Independent with ADL's No Is patient alert and oriented? No Patient/Family Preference [facility] Facility Barriers to Discharge Yes Comment Patient currently with cognitive issues. Current baseline unknown? Discharge Plan [facility] Facility Referrals Initiated [facility] If patient plan is SNF: Has PASSR been No completed? Review Status In Process Next Review Type Continued Stay Review
[2021-02-24] MEDS: TRAZODONE 50 MG TABLET PO (20:46)
[2021-02-24] MEDS: DEXTROSE 5%-0.45% NS 1,000 ML 60 ML IV (20:47)
[2021-02-24] MEDS: SODIUM CHLORIDE 0.9% FLUSH 10 ML IV (21:19)
--- NOTE | 2021-02-25 01:12 | PC.NURSE ---
Patient angry and upset with staff having to do vitals/assessment so uncooperative with answering questions making it difficult to ascertain level of orientation. States is you want to care for me, leave me alone. Breath sounds diminished but CTA with RA sat of 97%. HRR. Denies nausea. BT present and abdomen is soft. Indwelling catheter is patent; urine is clear, pale yellow. Not moving herself in bed so will assist with q2h turns as she will allow. Complains of pain in left leg with movement but when offered pain meds states I don't take pain pills. Has ortho boot to left LE and leg is elevated on pillows. Refused to have SCD applied to right leg so reminded to ankle wave. Fall risk score is high and bed alarm is activated.
[2021-02-25] MEDS: OXYCODONE IR 5 MG TABLET PO (02:03)
[2021-02-25] MEDS: ACETAMINOPHEN 325 MG TABLET 650 MG PO ×2 (05:10→12:33)
[2021-02-25] MEDS: LEVOTHYROXINE 100 MCG TABLET PO (06:15)
[2021-02-25] MEDS: PRAMIPEXOLE 0.25 MG TABLET PO ×3 (06:21→21:04)
[2021-02-25 07:00] VITALS: O2SAT 97
[2021-02-25 07:24] VITALS: BP 124/66; PULSE 97; RESP 17; TEMP 36.7; O2SAT 95
[2021-02-25 07:31] VITALS: O2SAT 97
--- NOTE | 2021-02-25 07:39 | P.PN_ITS ---
Subjective Subjective Date Patient Seen: 02/25/21 Time Patient Seen: 07:39 Interval history: The patient's pain is mild. She denies any fevers, chills, night sweats. No nausea or vomiting. She notes that generally she is deconditioned at her baseline. She normally uses a walker or wheelchair to ambulate and has her as a caregiver at home in addition to home health. Exam Vital Signs (past 8 hours): - 02/25/21 07:24 02/25/21 07:31 Temperature 98.1 F Pulse Rate 97 H Respiratory Rate 17 Blood Pressure 124/66 Pulse Oximetry 95 97 Oxygen Delivery Method Room Air Oxygen Flow Rate 0 Narrative Exam Narrative: Patient's left foot and ankle is currently in a walking boot.? Patient is able to dorsiflex and plantar flex the toes without any pain or difficulty.? Palpable DP pulses.? Brisk cap refill.? No sign of any knee swelling or instability.? Compartments are soft.? Calves are soft, nontender to palpation. Skin is intact.? No sign of any blistering. Objective Labs Result Diagrams: 02/23/21 19:00 02/23/21 19:00 [facility] Medical History Abnormal gait (04/19/17) Acquired hypothyroidism Age related osteoporosis Anxiety (01/09/16) Bone anomaly Closed fracture of left hip Compression fx, lumbar spine Depression (07/30/11) Essential hypertension Essential tremor Fracture of left wrist Hydrocephalus due to abnormality of flow cerebrospinal fluid Incomplete bladder emptying Lumbar compression fracture Malignant neoplasm of breast (01/11/14) Mild cognitive impairment Tremor (04/19/17) Surgical History Status post cholecystectomy Status post colectomy Status post dilation and curettage Status post rotator cuff repair Ventral hernia Family History Father No problems noted. Mother No problems noted. Social History marital status: household members: spouse Smoking Status: Former smoker Tobacco: How many years used: 60 second hand exposure: No alcohol intake: former substance use type: does not use Assessment & Plan Assessment and plan (1) Closed tibial fracture: Status: Acute Plan: Stable status post left tibia fracture, with prior hardware Assessment & Plan narrative: Per Dr. Cárdenas, non weight bearing with front wheel walker or wheelchair. We will change her from her walking boot to a short-leg cast or splint Mobilize with PT Plan to DC home today, if cleared by 2 sessions of PT and hospitalist, and changed to a cast or splint Continue with pain management, added tramadol for [id number] pain Follow-up with Dr. Dumont in 1 week for repeat x-rays, call the office with any worsening signs or symptoms Time Spent With Patient Critical Care time: I spent a total of [] minutes of critical care time on this patient's care today; this time is exclusive of procedural time.
--- NOTE | 2021-02-25 07:49 | PM.PN.1 ---
Subjective Subjective Date Patient Seen: 02/25/21 Time Patient Seen: 07:50 Interval history: Patient is seen in the absence of Dr. Huerta, who will return to see her tomorrow. Patient reports significant improvement in her neck pain. Little bit of pain in her ankle. No new complaints or issues. She seems more awake alert and interactive this morning to me than she did yesterday. She is not anywhere near as slow to answer questions etcetera. Saw her in conjunction with the ortho physician's anesthetic assistant who tells me that Dr. Dumont, the ankle expert does not feel as though she absolutely require surgery. They will attempt to manage this without surgical intervention. Orders regarding therapy will be per Ortho. 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 Mother No problems noted. Social History marital status: household members: spouse Smoking Status: Former smoker Tobacco: How many years used: 60 second hand exposure: No alcohol intake: former substance use type: does not use Assessment & Plan Assessment & Plan narrative: 1. Ankle fracture-continue management as per Orthopedic surgery Service. This will complicate her ability to be cared for in the home setting and needs to be taken into account. 2. Abnormal gait-longstanding issue related to whatever neuro degenerative disorder she has ongoing. This will affect her recovery from her fracture. Physical and Occupational therapy to evaluate not only for her fracture but her ability to be cared for in the home setting and will be required to manage that. 3. -patient with significant issues related to bladder emptying. Until we have determined her functional ability on her feet I am going to leave the Grider catheter in place for now. 4. VTE prophylaxis-will initiate Lovenox given that does not appear she will be headed to surgery any time soon Overall patient's disposition will depend on her functional abilities and disabilities. She certainly has been a challenge to care for in the home setting I am sure. There was some issues around her 's ability to provide care as well with his own medical issues. Will defer to skilled therapies and care management team regarding best options for next steps from here. Note: Greater than 20 minutes was spent evaluating the patient on the floor, including examining the patient, discussing clinical course with clinical and nursing staff, reviewing clinical course in the computer, preparing documentation and writing orders for continued management of care, discussing status with family as appropriate, reviewing plans for the next 24 hours with both patient/family and nursing staff as appropriate. Time Spent With Patient Critical Care time: I spent a total of [] minutes of critical care time on this patient's care today; this time is exclusive of procedural time.
[2021-02-25] MEDS: clonazePAM 0.5 MG TABLET 0.25 MG PO ×2 (08:19→21:04)
[2021-02-25] MEDS: CHOLESTYRAMINE/ASPARTAME 4 GM PACK PO (08:20)
[2021-02-25] MEDS: CHOLECALCIFEROL (VITAMIN D3) 1,000 UNIT TABLET 4000 UNIT PO (08:20)
[2021-02-25] MEDS: POTASSIUM CHLORIDE 10 MEQ TAB PO (08:20)
[2021-02-25 08:21] VITALS: BP 124/76; PULSE 97
[2021-02-25] MEDS: cloNIDine 0.1 MG TABLET PO (08:21)
[2021-02-25] MEDS: TRAMADOL 50 MG TABLET PO (08:22)
[2021-02-25] MEDS: TAMSULOSIN 0.4 MG CAPSULE PO ×2 (08:22→21:04)
[2021-02-25] MEDS: MULTIVIT,CALC,MINS/IRON/FOLIC 1 TABLET 1 TAB PO (08:22)
[2021-02-25] MEDS: ENOXAPARIN 40 MG/0.4 ML SYRINGE SUBCUT (08:24)
[2021-02-25] MEDS: buPROPion XL 150 MG TAB PO (08:24)
--- NOTE | 2021-02-25 09:41 | PT.IIE ---
Current Diagnoses Unspecified fracture of shaft of unspecified tibia, initial encounter for closed fracture (02/23/21) Surgical History (Last Reviewed 02/25/21 @ 07:51 by Tarik Jeff MD) Status post cholecystectomy Status post colectomy Status post dilation and curettage Status post rotator cuff repair Ventral hernia Medical History (Last Reviewed 02/25/21 @ 07:51 by Tarik Jeff MD) Abnormal gait (04/19/17) Acquired hypothyroidism Age related osteoporosis Anxiety (01/09/16) Bone anomaly Closed fracture of left hip Compression fx, lumbar spine Depression (07/30/11) Essential hypertension Essential tremor Fracture of left wrist 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 Pt's assists her to transfer. Pt however did say that she could use the FWW to walk to the car prior to her fall. Activities of Daily Living and IADL's Pt states able to do all ADL's on her own except needign assist for showers. Social History Household Members spouse Living Arrangements House Number of Floors (Floors) One Floor Number of Stairs To Enter/Railing? NO steps to enter. Home Environment Standard Height Toilet,Walk in Shower,Tub/Shower Home Equipment Front Wheel Walker,Manual Wheelchair,Shower Seat with Backrest,Hand Held Shower,Grab Bars In Shower M2 PT-IP Current Condition Start: 02/25/21 08:34 Freq: NEEDED Status: Active Protocol: Document 02/25/21 09:41 AW (Rec: 02/25/21 10:54 AW [id number]) Physical Therapy Current Condition Current Condition Evaluation Date 02/25/21 Treatment Diagnosis L distal tibia fracture; impaired mobility and gait Onset Date 02/23/21 Precautions Brace Pt currently maintained in walking boot. Ortho notes indicate plan to transition to cast vs splint. Other Precautions falls Weight Bearing Status Weight Bearing Status Non-Weight Bearing Allowed Weight Bearing Amount (enter % NWB LLE or #) (%) M3 PT-IP Subjective Start: 02/25/21 08:34 Freq: NEEDED Status: Active Protocol: Document 02/25/21 09:41 AW (Rec: 02/25/21 10:54 AW [id number]) Subjective Physical Therapy Visit Type Type Initial Evaluation Visit Start Time 09:00 Visit Stop Time 09:41 Total Visit Minutes 41 Notes Co-eval with OT. Pt's was present for part of mobility assessment. Number of PROJECT HIRE Visits 0 Physical Therapy Visit Comments Patient Comments I don't think I can stand up without a lot of help. Therapy Pain Assessment Pain When Pain Assessed During Mobility Pain Present Pain Present Pain Reported M4 PT-IP Mobility and Gait Start: 02/25/21 08:34 Freq: NEEDED Status: Active Protocol: Document 02/25/21 09:41 AW (Rec: 02/25/21 10:54 AW [id number]) PT-Transfer Assessment Sit to and From Stand Sit to and from Stand Total Assistance,2 Person Assistance,Use of Upper Extremities Equipment Transfer Assistive Device Gait Belt,Sliding Board Orthotic/Prosthetic Devices or Brace: Yes Transfers Transfer Destination Chair,Bedside Commode Transfer Technique Lateral Scoot Transfer Ability Level of Assist Total Assistance,2 Person Assistance,Use of Upper Extremities Comments Mobility Comments Pt was seated on the chair as PT and OT arrived. She had been lifted via mechanical lift. PT educated pt on weightbearing status and transfer techniques. Pt did not think it likely she could stand and transfer without weight on her LLE but agreed to attempt standing. She needed max assist to scoot forward and had poor trunk stability in unsupported sitting. She attempted to stand with total assist x 2 but was unable to stabilize her right leg without therapist blocking her foot. She was unsuccessful in standing and agreed to trial slide board transfer. OT assisted pt to lean to her left side as PT placed the slide board. PT and OT described the transfer and cued pt along the way, including cues for hand placement. OT supported LLE as PT provided total assist for pt to scoot toward her right to the [facility]. Pt needed constant assist for seated balance. She returned to the chair via total assist x 2 slide board going toward her left and needed max to total assist for repositioning on the chair. Pt was left with OT for further assessment. Gait Assessment Comments Gait Comments Pt unable at this time. Stair Climbing Assessment Comments Stair Climbing Comments Not assessed. No stairs at home. PT-Balance Assessment Sitting Balance and Reactions Static Sitting Balance Ability Fair Dynamic Sitting Balance Ability Poor Standing Balance and Reactions Static Standing Balance Ability Poor Dynamic Standing Balance Ability Poor Device Used slide board, FWW M5 PT-IP Objective Assessments Start: 02/25/21 08:34 Freq: NEEDED Status: Active Protocol: Document 02/25/21 09:41 AW (Rec: 02/25/21 11:06 AW [id number]) Orientation Orientation/Cognition Level of Alertness Confusional State Orientation Name,Place,Situation Language Function Ability No Deficits Noted Safety Awareness Decreased Safety Awareness Comments Pt presents with confusion and difficulty following multi- step directions, does better with single step direction. Gross Range of Motion Upper Extremity ROM Assessment Within Functional Limits Lower Extremity ROM Assessment Within Functional Limits Strength Lower Extremity Strength Assessment Bilaterally Impaired Hip 3/5 Knee R 4/5; L 3/5 Ankle R 4-/5; L NT Sensation Assessment Sensation Gross Sensation WNL Comments Sensation Comments Pt denies sensation disturbance Muscle Tone Muscle Tone WNL Yes M6 PT-IP Treatment Start: 02/25/21 08:34 Freq: NEEDED Status: Active Protocol: Document 02/25/21 09:41 AW (Rec: 02/25/21 11:06 AW [id number]) Physical Therapy Treatment Education Education Provided Weight Bearing Status,Safety Other Treatments Other Treatment Performed Educated pt and her spouse on PT plan of care and equipment/ assistance needs if pt were to go home. M7 PT-IP Assessment and Plan Start: 02/25/21 08:34 Freq: NEEDED Status: Active Protocol: Document 02/25/21 09:41 AW (Rec: 02/25/21 11:06 AW [id number]) PT Summary Assessment and Plan Potential Rehabilitation Potential Fair Status of Condition at Evaluation Evolving Summary Impairments Pain,ROM,Strength,Balance, Cognition,Bed Mobility, Transfers,Gait Assessment Summary Georgie is a 75 yo woman with an unclassified neurodegenerative disorder which complicates her gait and balance at baseline. She states she uses a FWW to transfer and is able to walk short distances with FWW ordinarily. Pt now has distal tibia fracture. Ortho has declined surgical intervention and pt is currently in a walking boot with NWB LLE orders. She will be transitioned to a splint vs cast. On evalutaion, pt required total assist x 2 for unsuccessful attempt to stand and total assist x 2 for slide board transfers. She will require 24/7 assist with all mobility at discharge and would benefit from subacute rehab to improve her strength and mobility to the point where she can be cared for at home. If pt is unable to go to SNF, she will need 24/7 assist and home health; PT would recommend lyndsay lift for home transfer needs, drop arm wheelchair, and drop arm commode. Goals Bed Mobility Goal Minimal Assistance Transfer Goal Minimal Assistance,Slide Board Gait Goal Maximal Assistance,Front Wheel Walker Gait Distance 10 Days to Meet Goals 10 Frequency of Treatment Frequency Of Treatment Twice a Day Treatment Plan Physical Therapy Treatment Plan Bed Mobility Training,Transfer Training,Gait Training, Therapeutic Exercise,Balance Retraining,Discharge Planning, Hot or Cold Pack Other Recommendations and Next Treatment assess bed mobility if able; Focus slide board transfer; re- assess POC for twice/day vs once/day Precautions Other Precautions falls; NWB LLE Recommendations To Nursing Amount of Assist Needed Mechanical Lift Discharge Recommendations PT Discharge Recommendations SNF Rehab Transportation Needs at Discharge Wheelchair/Cabulance
--- NOTE | 2021-02-25 09:55 | OT.IP.EVAL ---
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 Incomplete bladder emptying Lumbar compression fracture Malignant neoplasm of breast (01/11/14) Mild cognitive impairment Tremor (04/19/17) Surgical History (Last Reviewed 02/25/21 @ 07:51 by Tarik Jeff MD) Status post cholecystectomy Status post colectomy Status post dilation and curettage Status post rotator cuff repair Ventral hernia Occupational Therapy Inpatient Evaluation/Re-Eval M1 PT/OT-IP Prior Functional Status Start: 02/25/21 08:34 Freq: NEEDED Status: Active Protocol: Document 02/25/21 09:55 [facility] (Rec: 02/25/21 10:36 [facility] [id number]) Medical Review Prior Functional Status Medical History Reviewed Yes Communication Independent Mobility and Gait Pt states uses a FWW to transfer to . Pt's assists her to transfer at times per pt . Pt however did say that she could use the FWW to walk to the car prior to her fall. Activities of Daily Living and IADL's Pt states able to do all ADL's on her own except needing assist for showers. Social History Household Members spouse Living Arrangements House Number of Floors (Floors) One Floor Number of Stairs To Enter/Railing? NO steps to enter. Home Environment Standard Height Toilet,Walk in Shower,Tub/Shower Home Equipment Front Wheel Walker,Manual Wheelchair,Shower Seat with Backrest,Hand Held Shower,Grab Bars In Shower M2 OT-IP Current Condition Start: 02/25/21 10:08 Freq: Status: Active Protocol: Document 02/25/21 09:55 [facility] (Rec: 02/25/21 10:36 [facility] [id number]) Occupational Therapy Current Condition Current Condition Evaluation Date 02/25/21 Treatment Diagnosis GLF, left tibial FX, decreased mobility Diagnosis Onset Date 02/23/21 Weight Bearing Status Weight Bearing Status Non-Weight Bearing Allowed Weight Bearing Amount (enter % NWB for LLE, per ortho note to or #) (%) change from walking boot to short cast/splint M3 OT- IP Subjective and Pain Start: 02/25/21 10:08 Freq: Status: Active Protocol: Document 02/25/21 09:55 [facility] (Rec: 02/25/21 10:36 [facility] [id number]) OT- Subjective Occupational Therapy Visit Type Type Initial Evaluation Visit Start Time 09:55 Visit Stop Time 10:55 Total Visit Minutes 60 Occupational Therapy Visit Comments Patient Comments Pt a little apprehensive but willing to try to get up. Pt's came in at the end of the session. PT present due to pt needing extensive skilled assist for mobility needs at this time due to her LLE NWB status. Patient/Caregiver Goals To get better. OT Pain Assessment Pain When Pain Assessed At Rest Pain Present Pain Present Denied Pain M4 OT- IP ADL's Start: 02/25/21 10:08 Freq: Status: Active Protocol: Document 02/25/21 09:55 [facility] (Rec: 02/25/21 10:36 [facility] [id number]) OT [id number] Comments OT Self-Feeding Comments NOt at meal time. OT ADL-Grooming General Evaluation Grooming Ability Standby Assistance Areas Needing Assistance Retrieving/Set-up of Grooming Items Comments OT Grooming Comments Pt able to do while seated in the recliner. OT ADL-Oral Care General Eval Oral Care Ability Standby Assistance Areas of Assistance Retrieving/Set-Up of Items OT ADL-Dressing General Eval Lower Body Dressing Ability Total Assistance OT ADL-Toileting General Evaluation Toileting Ability Total Assistance Comments OT Toileting Comments Grider in place. OT ADL-Bathing Comments OT Bathing Comments Sponge bath more appropriate at this time. M5 OT- IP IADL's Start: 02/25/21 10:08 Freq: Status: Active Protocol: Document 02/25/21 09:55 [facility] (Rec: 02/25/21 10:36 [facility] [id number]) OT-Instrumental Activities of Daily Living Home Safety Awareness Awareness of Need for Assistance at Home Good Awareness Medication Management Medication Management Caregiver Administers Money Management Money Management Caregiver Provides Assistance Meal Preparation Meal Preparation Caregiver Provides Assist Forest Fire Officer Forest Fire Officer Caregiver Provides Assist M6 OT- IP Functional Cognition Start: 02/25/21 10:08 Freq: Status: Active Protocol: Document 02/25/21 09:55 [facility] (Rec: 02/25/21 10:36 [facility] [id number]) Cognitive Factors Limiting Selfcare Function Cognitive Ability Level of Alertness Alert,Confusional State Patient Orientation Name Attention Span Ability Capable of Focused Attention, Capable of Sustained Attention Ability to Follow Commands Able to Follow One Step Commands with Increased Time, Able to Follow One Step Commands with Repetition Cognitive Comments Cognitive Assessment Comments Pt able to follow commands for grooming and oral care needs. Pt needing step by step instructions for mobility needs. Pt was asking her for her hair brush and forgetting that she was here in the hospital. Pt's states that her hair brush is at home in the side table. OT- Vision and Hearing OT- Hearing Assessment OT- Hearing Assessment WFL OT- Vision Assessment Vision Assessment Comments Pt wears contacts but not wearing them at this time. Pt able to read the clock. Pt states that her left eye is dry. Pt's right eye does not line up with her left eye when looking straight. At rest the right eye sits higher and laterally to the right. Pt not complaining of any visual changes. M7 OT- IP Mobility and Balance Start: 02/25/21 10:08 Freq: Status: Active Protocol: Document 02/25/21 09:55 [facility] (Rec: 02/25/21 10:36 [facility] [id number]) OT-Transfer Assessment Sit to and From Stand Sit to and from Stand 2 Person Assistance Transfers Transfer Ability Total Assistance,2 Person Assistance Technique Transfer Destination Bedside Commode,Chair Transfer Technique Lateral Scoot Devices Transfer Assistive Devices Sliding Board Comments Mobility Comments Attempted to stand pt to FWW and needing from total x2 , in addition her right foot was sliding out from underneath her. Able to try sliding board with pt and total assist for board placement, assist for LLE positioning, and to assist to help slide over to and from the drop arm BSC. At this time , lyndsay lift transfer is recommended for all pt's transfer needs. OT- Gait Assessment Comments Gait Ability Comments Not at this time. OT- Balance Assessment Sitting Balance and Reactions Static Sitting Balance Ability Fair Dynamic Sitting Balance Ability Poor Standing Balance and Reactions Static Standing Balance Ability Poor M8 OT- IP Objective Assessments Start: 02/25/21 10:08 Freq: Status: Active Protocol: Document 02/25/21 09:55 [facility] (Rec: 02/25/21 10:36 [facility] [id number]) OT Gross Range of Motion Upper Extremity Range of Motion Assessment Within Functional Limits OT Strength Comments Strength Comments BUE 4/5 to 4-/5 from proximal to distal. OT- Coordination Assessment Comments Coordination Comments Pt needing assist for set-up for grooming items. M9 OT- IP Assessment and Plan Start: 02/25/21 10:08 Freq: Status: Active Protocol: Document 02/25/21 09:55 [facility] (Rec: 02/25/21 10:36 [facility] [id number]) OT Summary Assessment and Plan Potential Rehabilitation Potential Good Analytic Complexity at Evaluation Moderate Summary OT Impairments Pain,Strength,Balance, Functional Cognition, Functional Mobility,Dressing, Toileting,Bathing,Toilet Transfers,Shower Transfers, Activity Tolerance Progress Towards Goals Slow Progress due to Pain,Slow Progress due to Medical Issues,Slow Progress due to Activity Tolerance,Slow Progress due to Cognition Assessment Summary Pt MOD complexity and main barriers are pt now NWB for LLE and prior had to use FWW and limited mobiltiy prior and at times having to assist with transfers to at times. Pt will benefit from skilled rehab prior to going home as pt's current level of mobility to great for pt's family to assist. Goals Grooming Goal Independent Dressing Goal Independent Toileting Goal Independent Bathing Goal Minimal Assistance Toilet Transfer Goal Minimal Assistance Shower Transfer Goal Minimal Assistance Patient/Caregiver Education Goal Caregiver Independent Assisting Patient Days to Meet Goals 45 Frequency of Treatment Frequency Of Treatment Once a Day Treatment Plan OT Treatment Plan ADL Training,Functional Cognition Training,Functional Mobility,Patient/Family Education,Discharge Planning Other Treatment Recommendations and Next [facility] Focus slidingn board and MAX AX 2. Educated pt on LB dressing equipment needs. Discharge Recommendations OT Discharge Recommendations SNF Rehab Transportation Needs at Discharge Wheelchair/Cabulance
[2021-02-25] MEDS: DEXTROSE 5%-0.45% NS 1,000 ML 60 ML IV (14:09)
[2021-02-25 15:00] VITALS: O2SAT 97
--- NOTE | 2021-02-25 15:44 | PT.IPTN ---
Current Diagnoses Unspecified fracture of shaft of unspecified tibia, initial encounter for closed fracture (02/23/21) Physical Therapy Treatment Note M2 PT-IP Current Condition Start: 02/25/21 08:34 Freq: NEEDED Status: Active Protocol: Document 02/25/21 09:41 AW (Rec: 02/25/21 10:54 AW [id number]) Physical Therapy Current Condition Current Condition Evaluation Date 02/25/21 Treatment Diagnosis L distal tibia fracture; impaired mobility and gait Onset Date 02/23/21 Precautions Brace Pt currently maintained in walking boot. Ortho notes indicate plan to transition to cast vs splint. Other Precautions falls Weight Bearing Status Weight Bearing Status Non-Weight Bearing Allowed Weight Bearing Amount (enter % NWB LLE or #) (%) M3 PT-IP Subjective Start: 02/25/21 08:34 Freq: NEEDED Status: Active Protocol: Document 02/25/21 15:44 [facility] (Rec: 02/25/21 18:06 [facility] [id number]) Subjective Physical Therapy Visit Type Type Treatment Note Visit Start Time 15:15 Visit Stop Time 15:44 Total Visit Minutes 29 Number of ELECTRICAL ENGINEERING DIRECTOR Visits 0 Physical Therapy Visit Comments Patient Comments She does not think she can stand, she liked sitting up in the recliner earlier but she got tired Patient Goals none stated Therapy Pain Assessment Pain When Pain Assessed During Mobility Pain Present Pain Present Pain Reported Location ankle Intensity 3 Scale Used Numeric (0 - 10) Description Aching Pain Management Techniques Apply Cold,Elevation M4 PT-IP Mobility and Gait Start: 02/25/21 08:34 Freq: NEEDED Status: Active Protocol: Document 02/25/21 15:44 [facility] (Rec: 02/25/21 18:06 [facility] [id number]) PT-Bed Mobility Assessment Rolling Type of Rolling Bilateral Level of Assist Moderate Assistance Supine to Sit Supine to Sit Moderate Assistance,Maximum Assistance,Head of Bed Elevated,Bedrails Sit to Supine Sit to Supine Maximum Assistance,Bedrails Scooting Scooting to Edge of Bed Maximum Assistance Scooting Up and Down in Bed Dependent PT-Transfer Assessment Comments Mobility Comments pt sat edge of bed only this visit, she needs min assist to stay seated at edge of bed due to varing post lean, she declined to attempt standing reports she is too tired Gait Assessment Comments Gait Comments Pt unable at this time. PT-Balance Assessment Sitting Balance and Reactions Static Sitting Balance Ability Fair Dynamic Sitting Balance Ability Poor M5 PT-IP Objective Assessments Start: 02/25/21 08:34 Freq: NEEDED Status: Active Protocol: Document 02/25/21 09:41 AW (Rec: 02/25/21 11:06 AW [id number]) Orientation Orientation/Cognition Level of Alertness Confusional State Orientation Name,Place,Situation Language Function Ability No Deficits Noted Safety Awareness Decreased Safety Awareness Comments Pt presents with confusion and difficulty following multi- step directions, does better with single step direction. Gross Range of Motion Upper Extremity ROM Assessment Within Functional Limits Lower Extremity ROM Assessment Within Functional Limits Strength Lower Extremity Strength Assessment Bilaterally Impaired Hip 3/5 Knee R 4/5; L 3/5 Ankle R 4-/5; L NT Sensation Assessment Sensation Gross Sensation WNL Comments Sensation Comments Pt denies sensation disturbance Muscle Tone Muscle Tone WNL Yes M6 PT-IP Treatment Start: 02/25/21 08:34 Freq: NEEDED Status: Active Protocol: Document 02/25/21 15:44 [facility] (Rec: 02/25/21 18:06 [facility] [id number]) Physical Therapy Treatment Exercises Exercises Ankle Pumps,Heel Slides,Supine Hip Abduction,Shoulder Flexion Education Education Provided Weight Bearing Status,Safety Other Treatments Other Treatment Performed Spouse not present this visit Other exercises performed: seated knee ext, seated marching x 10 reps each B, left ankle is in a slint this at this time M7 PT-IP Assessment and Plan Start: 02/25/21 08:34 Freq: NEEDED Status: Active Protocol: Document 02/25/21 15:44 [facility] (Rec: 02/25/21 18:06 [facility] [id number]) PT Summary Assessment and Plan Summary Impairments Pain,ROM,Strength,Balance, Cognition,Bed Mobility, Transfers,Gait Progress Towards Goals Slow Progress due to Activity Tolerance Assessment Summary Georgie is alert and resting in bed. She agreed to participate in therapy. She sat up edge of bed and participated in exercises. She declined to attempt standing due to feeling tired. She reports doing well sitting in the recliner earlier today. She is aware of her NWB status on left ankle. She reports no ankle pain at rest but does report pain when moving the left LE functionally. Continue to recommend SNF rehab at discharge since her mobility is not functional for home with her Spouse. Goals Bed Mobility Goal Minimal Assistance Transfer Goal Minimal Assistance,Slide Board Gait Goal Maximal Assistance,Front Wheel Walker Gait Distance 10 Other Goals Tolerate sitting in a chair for 2 hours at a time. Days to Meet Goals 10 Frequency of Treatment Frequency Of Treatment Twice a Day Treatment Plan Physical Therapy Treatment Plan Bed Mobility Training,Transfer Training,Gait Training, Therapeutic Exercise,Balance Retraining,Discharge Planning, Hot or Cold Pack Recommendations To Nursing Amount of Assist Needed Mechanical Lift Discharge Recommendations PT Discharge Recommendations SNF Rehab Transportation Needs at Discharge Wheelchair/Cabulance
--- NOTE | 2021-02-25 16:52 | CM.DPC ---
DCP/continued: Reviewed chart. BILLING CHECKER spoke with therapy this AM. Per Nancy, patient requiring max assist during therapy this AM. Orthopedic's have seen patient and do not recommend surgery. Met with patient this afternoon explained role. Patient appeared alert and oriented at time of visit. Patient reports that she plans to d/c home when medically stable. Patient resides with her spouse in [place]. Patient reports that she does have trimmer helper to assist? Patient also indicates that she no longer drives and uses walker at baseline. Patient indicates that she has no desire to go to SNF or any other setting when medically stable. BILLING CHECKER to see patient again in AM. Patient does provide CM team with permission to speak with her family which includes spouse/Nehemias and daughter/Kaitlyn. Placed call to daughter/Kaitlyn and she reports that family has been encouraging patient and spouse to move into assisted/independent living. Daughter has even found some facilities in [place], [place]. Daughter reports that her Dad told her to look and then decided that patient and himself do not need to move. Daughter reports that they do have caregiver(s) but that they have not been consistent and that both patient and spouse are extremely picky. Spouse refuses to use agency? Spouse believes that agencies pay caregiver's poorly and he would prefer that all the payment go directly to caregiver's. P: Pending. Anticipate that patient will most likely d/c home with HH and additional caregiver(s)? F2F left in red folder for provider to sign. Agency preference for HH is [facility] because they have had them before. HEATHER
[2021-02-25 17:03] VITALS: BP 116/54; PULSE 94; RESP 17; TEMP 37.4; O2SAT 95
[2021-02-25] MEDS: TRAZODONE 50 MG TABLET PO (21:04)
[2021-02-26] VITALS (7 sets, daily range): BP systolic 107–119; BP diastolic 50–64; PULSE 77–92; RESP 16–18; TEMP 36.6–36.8; O2SAT 94–95
--- NOTE | 2021-02-26 02:33 | PC.NURSE ---
Patient is alert but oriented only to self, birthdate, place and situation. Breath sounds CTA with RA sat of 94%. HRR. Denied nausea. BT present and abdomen is soft. Indwelling catheter is patent; urine is clear, pale yellow. Needing assistance to reposition q2h as not moving herself. Is NWB on left LE due to ankle fx; reportedly using Latoya to transfer to chair during day. Has splint to left LE. CMS is intact. Has declined to wear calf SCD on right LE so reminded to ankle wave. Denied pain and has FLACC of 0 except with movement. Fall risk score is high and bed alarm is activated.
[2021-02-26] MEDS: LEVOTHYROXINE 100 MCG TABLET PO (05:52)
[2021-02-26] MEDS: PRAMIPEXOLE 0.25 MG TABLET PO ×3 (05:52→20:02)
[2021-02-26] MEDS: DEXTROSE 5%-0.45% NS 1,000 ML 60 ML IV (05:55)
--- NOTE | 2021-02-26 08:26 | P.PN_ITS ---
Subjective Subjective Date Patient Seen: 02/26/21 Time Patient Seen: 08:26 Interval history: Patient seen and evaluated this morning says she slept well last night. She is having hard time waking up. Reviewed PT OT notes. Patient requiring maximal assistance with ambulation. She is nonweightbearing as per Orthopedic surgery. Patient has no pain. She is not hungry. Patient's at home who helps out with primary caregiving recently had a heart procedure done for aortic stenosis. They will need significant caregiver support at home if she is to go home. She probably would benefit from a short stay correction facility although I am not sure that is available due to the COVID pandemic. Exam Vital Signs (past 8 hours): - 02/26/21 01:30 02/26/21 08:04 Temperature 97.8 F Pulse Rate 77 Respiratory Rate 16 Blood Pressure 119/64 Pulse Oximetry 94 95 Oxygen Delivery Method Room Air Oxygen Flow Rate 0 Narrative Exam Narrative: Gen.: Alert no apparent distress no complaints of pain. She knows she broke her ankle she is at [facility]. 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 Mother No problems noted. Social History marital status: household members: spouse Smoking Status: Former smoker Tobacco: How many years used: 60 second hand exposure: No alcohol intake: former substance use type: does not use Assessment & Plan Assessment and plan (1) Closed tibial fracture: Status: Acute Plan: Left tibia fracture appreciate orthopedic consultation. Patient is in a walking boot with nonweightbearing. Either with walker or wheelchair. Patient receiving PT OT. Requiring maximal assistance with ambulation. This can be quite difficult for her to go home because of her underlying neural cognitive health. As well as her who recently had a heart procedure. Will work with discharge planning. Says safest place for discharge is with correction although unsure bed availability due to COVID. If she is able to go home will need full-time caregivers here temporarily. Acute urinary retention. Patient has a history of urinary retention. She had a Grider catheter placed. Will go ahead and remove the Grider catheter today. She is on Flomax. She has had a urology appointments and workup. Risk of infection is high with chronic ongoing Grider catheterization. Continue with her current Flomax prescription Vascular Parkinson's or normal pressure hydrocephalus. Patient has had ongoing difficulty with neurological changes tremor cognitive changes. Concerns about diagnosis of Parkinson's or normal pressure hydrocephalus. Has seen a number of different neurologist and in the workup process with this. No definitive diag nosis is happened yet at this point. Generalized anxiety disorder. Continue with Wellbutrin will go ahead and decrease her clonidine that she is still having and will go ahead and stop that altogether at this point. Clonidine was started because of her anxiety. I think the risks are worse than the benefits. Will continue to work good down on her clonazepam she gets 0.25 mg twice a day. Disposition and plan. Work with discharge planning today for discharge from hospital. Time Spent With Patient Critical Care time: I spent a total of [] minutes of critical care time on this patient's care today; this time is exclusive of procedural time.
[2021-02-26] MEDS: TAMSULOSIN 0.4 MG CAPSULE PO ×2 (08:36→20:02)
[2021-02-26] MEDS: MULTIVIT,CALC,MINS/IRON/FOLIC 1 TABLET 1 TAB PO (08:36)
[2021-02-26] MEDS: CHOLECALCIFEROL (VITAMIN D3) 1,000 UNIT TABLET 4000 UNIT PO (08:36)
[2021-02-26] MEDS: CHOLESTYRAMINE/ASPARTAME 4 GM PACK PO (08:36)
[2021-02-26] MEDS: POTASSIUM CHLORIDE 10 MEQ TAB PO (08:36)
[2021-02-26] MEDS: buPROPion XL 150 MG TAB PO (08:36)
[2021-02-26] MEDS: ENOXAPARIN 40 MG/0.4 ML SYRINGE SUBCUT (08:37)
[2021-02-26] MEDS: SODIUM CHLORIDE 0.9% FLUSH 10 ML IV ×2 (08:37→20:03)
[2021-02-26] MEDS: clonazePAM 0.5 MG TABLET 0.25 MG PO ×2 (08:38→20:02)
--- NOTE | 2021-02-26 08:50 | CM.DPNOTE ---
Faxed referral packet to [facility] in [facility] to [phone] and received fax conf. Ann Hargrove CM Asst.
[2021-02-26] MEDS: ACETAMINOPHEN 325 MG TABLET 650 MG PO ×2 (09:11→19:02)
--- NOTE | 2021-02-26 11:30 | PT.IPTN ---
Current Diagnoses Unspecified fracture of shaft of unspecified tibia, initial encounter for closed fracture (02/23/21) Physical Therapy Treatment Note M2 PT-IP Current Condition Start: 02/25/21 08:34 Freq: NEEDED Status: Active Protocol: Document 02/25/21 09:41 AW (Rec: 02/25/21 10:54 AW [id number]) Physical Therapy Current Condition Current Condition Evaluation Date 02/25/21 Treatment Diagnosis L distal tibia fracture; impaired mobility and gait Onset Date 02/23/21 Precautions Brace Pt currently maintained in walking boot. Ortho notes indicate plan to transition to cast vs splint. Other Precautions falls Weight Bearing Status Weight Bearing Status Non-Weight Bearing Allowed Weight Bearing Amount (enter % NWB LLE or #) (%) M3 PT-IP Subjective Start: 02/25/21 08:34 Freq: NEEDED Status: Active Protocol: Document 02/26/21 11:00 SP (Rec: 02/26/21 12:49 SP [id number]) Subjective Physical Therapy Visit Type Type Treatment Note Visit Start Time 11:00 Visit Stop Time 11:30 Total Visit Minutes 30 Notes Cotx with OT, observed only to see if thinks can assist his . Number of MOTION DESIGNER Visits 1 Physical Therapy Visit Comments Patient Comments Pt willing to work with therapy. Pt stated I am not able to stand. Therapy Pain Assessment Pain When Pain Assessed At Rest Pain Present Pain Present Denied Pain M4 PT-IP Mobility and Gait Start: 02/25/21 08:34 Freq: NEEDED Status: Active Protocol: Document 02/26/21 11:00 SP (Rec: 02/26/21 12:49 SP [id number]) PT-Bed Mobility Assessment Supine to Sit Supine to Sit Maximum Assistance,2 Person Assistance,Head of Bed Elevated,Bedrails Scooting Scooting to Edge of Bed Maximum Assistance PT-Transfer Assessment Equipment Transfer Assistive Device Gait Belt,Sliding Board Orthotic/Prosthetic Devices or Brace: Yes Transfers Transfer Destination Chair Transfer Technique Lateral Scoot Transfer Ability Level of Assist Maximum Assistance,2 Person Assistance,Use of Upper Extremities Comments Mobility Comments Elevated supine> sit with MaxA of 2 person for L>R LE positioning to EOB, use of transfer pad for pelvic repositioning, trunk righting support to sit with education using R Bed rail and redirections LUE on bed for self trunk support. Pt required Max A initially for trunk support mobilizing due to retro leaning but once sitting then able support self sBA with BUE needed. Slide board transfer bed downward lant to chair to R Max A for locomotion while pt contact RLE on floor and BUE on board for balance but was not abble to help repositioning. LLE postioned on therapist foot to assess maintaining NWB. Min A for lateral trunk shift over R hip for OT to remove slide board. Max A of 2 to scoot back in chair with BUE positioned on chair arms for support. Pt was reclined in chair and had call light and all needs in reach before left . in room. Gait Assessment Comments Gait Comments Not at this time. Stair Climbing Assessment Comments Stair Climbing Comments Not assessed. No stairs at home. PT-Balance Assessment Sitting Balance and Reactions Static Sitting Balance Ability Fair Dynamic Sitting Balance Ability Poor Comments Other Balance Tests/Deviations/Treatment Slide board transfer only, BUE : self support, fair. M5 PT-IP Objective Assessments Start: 02/25/21 08:34 Freq: NEEDED Status: Active Protocol: Document 02/25/21 09:41 AW (Rec: 02/25/21 11:06 AW [id number]) Orientation Orientation/Cognition Level of Alertness Confusional State Orientation Name,Place,Situation Language Function Ability No Deficits Noted Safety Awareness Decreased Safety Awareness Comments Pt presents with confusion and difficulty following multi- step directions, does better with single step direction. Gross Range of Motion Upper Extremity ROM Assessment Within Functional Limits Lower Extremity ROM Assessment Within Functional Limits Strength Lower Extremity Strength Assessment Bilaterally Impaired Hip 3/5 Knee R 4/5; L 3/5 Ankle R 4-/5; L NT Sensation Assessment Sensation Gross Sensation WNL Comments Sensation Comments Pt denies sensation disturbance Muscle Tone Muscle Tone WNL Yes M6 PT-IP Treatment Start: 02/25/21 08:34 Freq: NEEDED Status: Active Protocol: Document 02/26/21 11:00 SP (Rec: 02/26/21 12:49 SP [id number]) Physical Therapy Treatment Education Education Provided Weight Bearing Status,Safety Other Treatments Other Treatment Performed Spouse and pt education on max 2 person assist required for mobility and stated is unable to help pt unless less assistance is needed. states has BSC, FWW and platform under recliner she sleeps in but doesn't have lift that she would needed to transfer. M7 PT-IP Assessment and Plan Start: 02/25/21 08:34 Freq: NEEDED Status: Active Protocol: Document 02/26/21 11:00 SP (Rec: 02/26/21 12:49 SP [id number]) PT Summary Assessment and Plan Potential Rehabilitation Potential Fair Status of Condition at Evaluation Evolving Summary Impairments Pain,ROM,Strength,Balance, Cognition,Bed Mobility, Transfers,Gait Progress Towards Goals Slow Progress due to Activity Tolerance Assessment Summary Georgie is alert and resting in bed. She agreed to participate in therapy. Max A x2 for supine>sit, slide board transfer to chair, scoot back in chair Max A x2. She declined to attempt standing due not able to yet and RLE isn't strong enough. She is aware of her NWB status on left ankle but requires support to maintain precautions. She reports no ankle pain at rest but does report pain when moving the left LE functionally. Continue to recommend SNF rehab at discharge since her mobility is not functional for home with her Spouse. Goals Bed Mobility Goal Minimal Assistance Transfer Goal Minimal Assistance,Slide Board Gait Goal Maximal Assistance,Front Wheel Walker Gait Distance 10 Other Goals Tolerate sitting in a chair for 2 hours at a time. Days to Meet Goals 10 Frequency of Treatment Frequency Of Treatment Twice a Day Treatment Plan Physical Therapy Treatment Plan Bed Mobility Training,Transfer Training,Gait Training, Therapeutic Exercise,Balance Retraining,Discharge Planning, Hot or Cold Pack Other Recommendations and Next Treatment bed mob, slide baord transfer. Focus Precautions Other Precautions falls; NWB LLE Recommendations To Nursing Amount of Assist Needed Mechanical Lift Discharge Recommendations PT Discharge Recommendations SNF Rehab Transportation Needs at Discharge Wheelchair/Cabulance
--- NOTE | 2021-02-26 11:30 | OT.IP.TRT ---
Current Diagnoses Unspecified fracture of shaft of unspecified tibia, initial encounter for closed fracture (02/23/21) Occupational Therapy Treatment Note M2 OT-IP Current Condition Start: 02/25/21 10:08 Freq: Status: Active Protocol: Document 02/25/21 09:55 [facility] (Rec: 02/25/21 10:36 [facility] [id number]) Occupational Therapy Current Condition Current Condition Evaluation Date 02/25/21 Treatment Diagnosis GLF, left tibial FX, decreased mobility Diagnosis Onset Date 02/23/21 Weight Bearing Status Weight Bearing Status Non-Weight Bearing Allowed Weight Bearing Amount (enter % NWB for LLE, per ortho note to or #) (%) change from walking boot to short cast/splint M3 OT- IP Subjective and Pain Start: 02/25/21 10:08 Freq: Status: Active Protocol: Document 02/26/21 12:08 [facility] (Rec: 02/26/21 12:22 [facility] [id number]) OT- Subjective Occupational Therapy Visit Type Type Treatment Note Visit Start Time 11:00 Visit Stop Time 11:30 Total Visit Minutes 30 Occupational Therapy Visit Comments Patient Comments Pt's present for OT / BACKUP ENGINEER session for caregiver training, but mostly to watch how pt was doing. Patient/Caregiver Goals Pt wants to go home. Pt's realizes that he will not be able to provide enough assist for the pt and that rehab will be needed. OT Pain Assessment Pain When Pain Assessed At Rest Pain Present Pain Present Denied Pain M6 OT- IP Functional Cognition Start: 02/25/21 10:08 Freq: Status: Active Protocol: Document 02/26/21 12:08 [facility] (Rec: 02/26/21 12:22 [facility] [id number]) Cognitive Factors Limiting Selfcare Function Cognitive Ability Level of Alertness Alert,Confusional State Patient Orientation Name Attention Span Ability Capable of Focused Attention, Unable to Sustain Attention Ability to Follow Commands Able to Follow One Step Commands with Increased Time, Able to Follow One Step Commands with Repetition Cognitive Comments Cognitive Assessment Comments Pt very distracted and constantly asking if her was present in the room. Pt's was in the room but pt would forget and ask if her was still in the room. Pt needing concrete simple cues to follow for mobility needs. Pt needing continuous vc to focus. Pt needing step by step instructions to follow. M7 OT- IP Mobility and Balance Start: 02/25/21 10:08 Freq: Status: Active Protocol: Document 02/26/21 12:08 [facility] (Rec: 02/26/21 12:22 [facility] [id number]) OT- Bed Mobility Assessment Supine to Sit Supine to Sit Assist Maximum Assistance,2 Person Assistance Scooting Scooting to Edge of Bed Maximum Assistance,2 Person Assistance OT-Transfer Assessment Transfers Transfer Ability Maximum Assistance,2 Person Assistance Technique Transfer Destination Bed,Chair Transfer Technique Lateral Scoot Devices Transfer Assistive Devices Sliding Board Comments Mobility Comments Pt needing MAX AX 2 to to get to the edge of the bed assist for her LLE and trunk. Pt able to assist a little for sliding board transfer with her hands with MAX A X 2, still needing assist for board placement, balance, and to be sure pt no putting weight through her LLE. OT- Gait Assessment Comments Gait Ability Comments Not at this time. OT- Balance Assessment Sitting Balance and Reactions Static Sitting Balance Ability Fair Dynamic Sitting Balance Ability Poor Comments Other Balance Tests/Deviations/Treatment Initially pt needing MAX A X1 : to sit on the edge of the bed and after assist to get her feet to the floor able to sit with close SBA. M8 OT- IP Objective Assessments Start: 02/25/21 10:08 Freq: Status: Active Protocol: Document 02/25/21 09:55 [facility] (Rec: 02/25/21 10:36 [facility] [id number]) OT Gross Range of Motion Upper Extremity Range of Motion Assessment Within Functional Limits OT Strength Comments Strength Comments BUE 4/5 to 4-/5 from proximal to distal. OT- Coordination Assessment Comments Coordination Comments Pt needing assist for set-up for grooming items. M9 OT- IP Assessment and Plan Start: 02/25/21 10:08 Freq: Status: Active Protocol: Document 02/26/21 12:08 [facility] (Rec: 02/26/21 12:22 [facility] [id number]) OT Summary Assessment and Plan Potential Rehabilitation Potential Fair Analytic Complexity at Evaluation Moderate Summary OT Impairments Pain,Strength,Balance, Functional Cognition, Functional Mobility,Dressing, Toileting,Bathing,Toilet Transfers,Shower Transfers, Activity Tolerance Progress Towards Goals Slow Progress due to Pain,Slow Progress due to Medical Issues,Slow Progress due to Activity Tolerance,Slow Progress due to Cognition Assessment Summary Pt able to assist more today for sliding board transfer. Pt realizes that her will not be able to provide enough assist for the pt. Pt's present for OT /BACKUP ENGINEER session to watch and now states pt will be better off going to rehab prior to going home. Goals Grooming Goal Independent Dressing Goal Moderate Assistance Toileting Goal Minimal Assistance Bathing Goal Minimal Assistance Toilet Transfer Goal Minimal Assistance Shower Transfer Goal Minimal Assistance Patient/Caregiver Education Goal Caregiver Independent Assisting Patient Days to Meet Goals 44 Frequency of Treatment Frequency Of Treatment Once a Day Treatment Plan OT Treatment Plan ADL Training,Functional Cognition Training,Functional Mobility,Patient/Family Education,Discharge Planning Discharge Recommendations OT Discharge Recommendations SNF Rehab Transportation Needs at Discharge Wheelchair/Cabulance
--- NOTE | 2021-02-26 12:10 | CM.DPNOTE ---
Called [facility] per [place] to get an estimate to [facility] in [place]. Spoke to Afshan and she quoted $[address] Ann Hargrove CM Asst.
--- NOTE | 2021-02-26 15:10 | PT.IPTN ---
Current Diagnoses Unspecified fracture of shaft of unspecified tibia, initial encounter for closed fracture (02/23/21) Physical Therapy Treatment Note M2 PT-IP Current Condition Start: 02/25/21 08:34 Freq: NEEDED Status: Active Protocol: Document 02/25/21 09:41 AW (Rec: 02/25/21 10:54 AW [id number]) Physical Therapy Current Condition Current Condition Evaluation Date 02/25/21 Treatment Diagnosis L distal tibia fracture; impaired mobility and gait Onset Date 02/23/21 Precautions Brace Pt currently maintained in walking boot. Ortho notes indicate plan to transition to cast vs splint. Other Precautions falls Weight Bearing Status Weight Bearing Status Non-Weight Bearing Allowed Weight Bearing Amount (enter % NWB LLE or #) (%) M3 PT-IP Subjective Start: 02/25/21 08:34 Freq: NEEDED Status: Active Protocol: Document 02/26/21 14:35 SP (Rec: 02/26/21 16:39 SP [id number]) Subjective Physical Therapy Visit Type Type Treatment Note Visit Start Time 14:35 Visit Stop Time 15:10 Total Visit Minutes 35 Notes in room observed only, stated unable to provided assist needs at this time . Nurse Zayra provided 2nd person assist throughout tx. Number of DEPARTMENTAL SECRETARY Visits 2 Physical Therapy Visit Comments Patient Comments Pt willing to work with therapy. I will try and do what is asked, just need to tell me what to do step by step. I am not allowed to stand up. Therapy Pain Assessment Pain When Pain Assessed At Rest Pain Present Pain Present Denied Pain Location ankle Scale Used just a little when moving Pain Management Techniques Distraction,Elevation, Modification of Treatment,Re- positioning,Timing of Activity with Medications M4 PT-IP Mobility and Gait Start: 02/25/21 08:34 Freq: NEEDED Status: Active Protocol: Document 02/26/21 14:35 SP (Rec: 02/26/21 16:39 SP [id number]) PT-Transfer Assessment Equipment Transfer Assistive Device Gait Belt,Sliding Board Orthotic/Prosthetic Devices or Brace: Yes Transfers Transfer Destination Bed,Chair Transfer Technique Lateral Scoot Transfer Ability Level of Assist Maximum Assistance,2 Person Assistance,Use of Upper Extremities Comments Mobility Comments Pt agreeable to working with therapy. Instructed LE exercises pre mobility: max A for LLE knee flexion, able to move toes. Scoot to EOchair Max A x1 w/ use of chair arms and transfer pad. Attempted sit>stand, pt very nervous knows not to WB but education NWB LLE only. Pt unable to unweight bottom off chair with Max A x2. Assisted with slide board transfer to R support L trunk lean and support lift RLE for placement. Lateral scoot accross slide board with Max cues for redirectioning BUE flat on board for self locomotion, LLE positioned out front and RLE underneath to allow WB on floor, pt tends to lift BUE when assist to lateral scoot but is able to support trunk self with cues for forward posture postioning , took 5 scoot chair>bed then L direction back to chair. Pt required Max A x2to scoot back in chair using transfer pad. DEPARTMENTAL SECRETARY suggested decreasing therapy to once day and pt stated I am going to do what I can, just sheer determination. Pt requested continue BID. Pt had BLE elevated, call light and all needs in reach before left. Suggested nursing continue lyndsay for transfers. Pt will require SNF for continued progress strength and functional mobility due to is not able to provided amount assist pt requires. Will continue to assess progresss. Gait Assessment Comments Gait Comments Not at this time. Stair Climbing Assessment Comments Stair Climbing Comments Not assessed. No stairs at home. PT-Balance Assessment Sitting Balance and Reactions Static Sitting Balance Ability Good Dynamic Sitting Balance Ability Fair Comments Other Balance Tests/Deviations/Treatment Slide board transfer only, pt : able to maintain sitting balance with cues for forward posture but tires quickly. M5 PT-IP Objective Assessments Start: 02/25/21 08:34 Freq: NEEDED Status: Active Protocol: Document 02/25/21 09:41 AW (Rec: 02/25/21 11:06 AW [id number]) Orientation Orientation/Cognition Level of Alertness Confusional State Orientation Name,Place,Situation Language Function Ability No Deficits Noted Safety Awareness Decreased Safety Awareness Comments Pt presents with confusion and difficulty following multi- step directions, does better with single step direction. Gross Range of Motion Upper Extremity ROM Assessment Within Functional Limits Lower Extremity ROM Assessment Within Functional Limits Strength Lower Extremity Strength Assessment Bilaterally Impaired Hip 3/5 Knee R 4/5; L 3/5 Ankle R 4-/5; L NT Sensation Assessment Sensation Gross Sensation WNL Comments Sensation Comments Pt denies sensation disturbance Muscle Tone Muscle Tone WNL Yes M6 PT-IP Treatment Start: 02/25/21 08:34 Freq: NEEDED Status: Active Protocol: Document 02/26/21 14:35 SP (Rec: 02/26/21 16:39 SP [id number]) Physical Therapy Treatment Exercises Exercises Ankle Pumps,Heel Slides Education Education Provided Weight Bearing Status,Safety Other Treatments Other Treatment Performed Pt and education regarding importance of mobility and most independent patterning at this time, slide board transfer more independent until able increase WB LLE. M7 PT-IP Assessment and Plan Start: 02/25/21 08:34 Freq: NEEDED Status: Active Protocol: Document 02/26/21 14:35 SP (Rec: 02/26/21 16:39 SP [id number]) PT Summary Assessment and Plan Potential Rehabilitation Potential Fair Status of Condition at Evaluation Evolving Summary Impairments Pain,ROM,Strength,Balance, Cognition,Bed Mobility, Transfers,Gait Progress Towards Goals Slow Progress due to Activity Tolerance Assessment Summary Pt tolerated up in chair for 3 hrs, between PT treatments, requires Max A x2 for skilled slide board transfer mobility, lyndsay transfers with nursing. Attempted but pt unable to come to stand on RLE using FWW . Continue to recommend SNF rehab at discharge since her mobility is not functional for home with her Spouse. Goals Bed Mobility Goal Minimal Assistance Transfer Goal Minimal Assistance,Slide Board Gait Goal Maximal Assistance,Front Wheel Walker Gait Distance 10 Other Goals Tolerate sitting in a chair for 2 hours at a time. Days to Meet Goals 10 Frequency of Treatment Frequency Of Treatment Twice a Day Treatment Plan Physical Therapy Treatment Plan Bed Mobility Training,Transfer Training,Gait Training, Therapeutic Exercise,Balance Retraining,Discharge Planning, Hot or Cold Pack Other Recommendations and Next Treatment bed mob, slide board transfer, Focus LLE ex. Precautions Other Precautions falls; NWB LLE Recommendations To Nursing Amount of Assist Needed Mechanical Lift Discharge Recommendations PT Discharge Recommendations SNF Rehab Transportation Needs at Discharge Wheelchair/Cabulance
--- NOTE | 2021-02-26 15:12 | CM.DPC ---
Addendum entered by Sydney Castorena 02/26/21 16:32: Received return phone call from [facility] after 4:00pm today. Per November they cannot accept due to staffing issues? UNDERWRITING INTERN placed call to [facility] spoke with Loni, she reports that they will have female bed tomorrow 9-9. Loni also reports that they can take patient under Medicare with COVID waiver. UNDERWRITING INTERN asked that Loni fax to department for provider to complete. P: [facility] reviewing. Patient remains in observation status and medically stable for discharge. KJIsiah Original Note: DCP/continued: Reviewed chart. Spoke with Dr. Huerta this AM and he confirms that patient needs SNF. Current recommendation from therapy is SNF for continued rehabilitation. Initially, patient declined SNF but today appears more realistic about her spouse's inability to care for her at home. Patient in agreement for UNDERWRITING INTERN to speak with daughter/Kaitlyn re: SNF choice. Patient and family aware that patient currently OBS status and that room/board at SNF will be paid for out of pocket. Daughter/Kaitlyn requesting that CM team call [facility] in [place] for bed. UNDERWRITING INTERN placed call to [facility] and spoke with it/Eryn. Eryn requesting that patient's clinical be faxed to that they can review. Asked RADHA/Ann to fax and received confirmation this AM that all information received. As of approximately 2:00pm have not heard from SNF on whether or not they can accept? Therefore, message left with Eryn requesting call back. Patient currently medically stable and once SNF found can discharge. Received message back from Eryn indicating that they can accept this patient today or tomorrow? Eryn unsure if she will have bed on Wednesday? Placed call back to daughter with update and she requests that UNDERWRITING INTERN speak with patient and spouse re: additional SNF options. Met with patient and spouse at bedside explained role. Both in agreement that short SNF stay needed. UNDERWRITING INTERN notified patient that facility in [place] does not have bed. Patient and spouse requesting that UNDERWRITING INTERN call [facility]. Placed call to November requesting review. Notified November that patient is medically stable and would be ready for transfer either later today or in AM. Received additional call from another of patient's daughter's. She left message requesting CM team check on facilities in [facility]. Both patient and spouse aware but prefer to stay in town in possible. P: Pending. [facility] currently reviewing. HEATHER
--- NOTE | 2021-02-26 17:30 | PC.NURSE ---
Patient's PIV was pulled out when doing physical assessment at beginning of shift. Patient not getting IVF and no IV pain medications. Informed patient that I will speak with Dr. Huerta and see if we can leave this out, or if we need to put in another. Dr. Huerta called back and he said this was fine to leave out. Communication order in place for continuity.
[2021-02-26] MEDS: TRAZODONE 50 MG TABLET PO (20:02)
[2021-02-27] VITALS: BP 129/63; PULSE 82; RESP 16; TEMP 36.6; O2SAT 94
[2021-02-27] MEDS: PRAMIPEXOLE 0.25 MG TABLET PO (06:09)
[2021-02-27] MEDS: LEVOTHYROXINE 100 MCG TABLET PO (06:09)
[2021-02-27] MEDS: ACETAMINOPHEN 325 MG TABLET 650 MG PO (06:14)
[2021-02-27 08:01] VITALS: BP 126/61; PULSE 93; RESP 18; TEMP 36.3; O2SAT 95
--- NOTE | 2021-02-27 08:24 | PM.DS.1 ---
History of Present Illness History of Present Illness Chief complaint: LEFT ANKLE INJURY Discharge Providers Provider Date of admission: 02/23/21 19:44 Discharge Date: 02/27/21 Primary care physician: Junior Huerta MD Consults: 02/23/21 19:39 Consult to Orthopedic Surgery Urgent Comment: Consulting Provider: Jose Cruz Addison Reason for consultation: ankle fracture Has provider been notified: Yes 02/23/21 21:09 Consult to Discharge Planning Routine Comment: Consult to Occupational Therapy Evaluate & Treat Comment: Physician Instructions: Evaluate and treat Consult to Physical Therapy Evaluate & Treat Comment: Physician Instructions: Evaluate and Treat Consult to Physician Routine Comment: Consulting Provider: Jose Cruz Addison Reason for consultation: fx ankle Has provider been notified: Yes Discharge provider: Junior Huerta MD Summary Hospital Course Discharge Diagnosis: Left tibia fracture Acute upon chronic urinary retention Unspecified movement disorder were concerning for vascular Parkinson's or normal pressure hydrocephalus being worked up by Neurology Generalized anxiety disorder 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 Due to patient's advanced age neurological condition patient is unable to ambulate and not weight-bearing. Patient's at home recently underwent heart surgery. Patient is up unable to safely transfer home. I needs maximal support and assistance with transfers with walker and wheelchair. During her hospital stay patient had an orthopedic evaluation will have follow-up with them. Patient vital signs were stable blood pressure was stable. Patient was mildly anxious. She was tolerating her diet and had normal bowel movements. 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 Mother No problems noted. Social History marital status: household members: spouse Smoking Status: Former smoker Tobacco: How many years used: 60 second hand exposure: No alcohol intake: former substance use type: does not use Discharge Plan Discharge Plan Patient Disposition: SNF Transportation: Cabulance Consult as needed: Dental and Mental health I certify the postop hospital longterm care is medically necessary on a continuing basis for any conditions for which he/ she received care during this hospitalization.: Yes The receiving facility has agreed to accept transfer and provide medical treatment.: Yes Discharge orders & Medications Prescriptions: Continued cholecalciferol (vitamin D3) 1,000 unit capsule 4,000 unit PO DAILY RF: 0 tamsulosin [Flomax] 0.4 mg capsule 0.4 mg PO BID RF: 0 flaxseed oil 1,000 mg Capsule 1,000 mg PO DAILY Qty: 0 RF: 0 alendronate 70 mg tablet 70 mg PO Burt@0730 Qty: 12 RF: 3 bupropion HCl 150 mg tablet extended release 24 hr 150 mg PO 0800 90 Days Qty: 90 RF: 3 ibuprofen 100 mg Tablet 200 mg PO Q6H PRN (Reason: Pain, Moderate) RF: 0 acetaminophen [Tylenol] 325 mg Capsule 650 mg PO Q4H PRN (Reason: Pain, Mild) RF: 0 trazodone 50 mg tablet 50 mg PO BEDTIME RF: 0 Prevalite 4 gram powder in packet 1 ea PO DAILY RF: 0 levothyroxine [Levoxyl] 100 mcg Tablet 100 mcg PO DAILY RF: 0 Lactobacillus acidophilus 2 billion cell Tablet 3,000 mmu cells PO DAILY RF: 0 multivitamin Tablet 1 tab PO DAILY RF: 0 vitamin E 400 unit Capsule 400 unit PO DAILY RF: 0 Calcium 1 tab PO DAILY RF: 0 Vitamin B 100 mg PO DAILY RF: 0 pramipexole 0.125 mg tablet 0.25 mg PO TID RF: 0 Changed clonazepam 0.25 mg Tablet,Disintegrating 0.25 mg PO BID PRN (Reason: anxity) Qty: 20 RF: 0 Discontinued potassium chloride 10 mEq capsule, extended release 10 meq PO DAILY Qty: 90 RF: 2 clonidine HCl 0.1 mg tablet 0.1 mg PO DAILY Qty: 90 RF: 1 Vitamin C 100 mg Tablet 100 mg PO DAILY RF: 0 potassium chloride [K-Dur] 10 mEq Tablet,Er Particles/Crystals 10 meq PO DAILY RF: 0 furosemide 40 mg tablet 40 mg PO DAILY RF: 0 ascorbic acid (vitamin C) [Vitamin C] 500 mg Tablet 500 mg PO DAILY RF: 0 Disabled Parking Permit 1 ea miscellaneous DIRECTED RF: 0 Follow up/Referrals: Alpa Cárdenas MD [Physician] - (Follow-up with Dr. Cárdenas in 7-10 days for repeat x-rays) Junior Huerta MD [Primary Care Provider] - Discharge Health Status Multidrug resistant organism: No MDRO Diet/Activity/Treatments Activity: Nonweightbearing with front wheeled walker or wheelchair Keep cast/splint dry Visit Report/Discharge Packet Visit Report Forms: Patient Portal/API, Stroke Signs & Symptoms Discharge Data Primary Care Provider: Junior Huerta Attending Provider: Junior Huerta Admit Date/Time: 02/23/21 19:44
[2021-02-27] MEDS: CHOLESTYRAMINE/ASPARTAME 4 GM PACK PO (09:00)
[2021-02-27] MEDS: clonazePAM 0.5 MG TABLET 0.25 MG PO (09:00)
[2021-02-27] MEDS: TAMSULOSIN 0.4 MG CAPSULE PO (09:00)
[2021-02-27] MEDS: CHOLECALCIFEROL (VITAMIN D3) 1,000 UNIT TABLET 4000 UNIT PO (09:01)
[2021-02-27] MEDS: MULTIVIT,CALC,MINS/IRON/FOLIC 1 TABLET 1 TAB PO (09:01)
[2021-02-27] MEDS: POTASSIUM CHLORIDE 10 MEQ TAB PO (09:01)
[2021-02-27] MEDS: ENOXAPARIN 40 MG/0.4 ML SYRINGE SUBCUT (09:01)
[2021-02-27] MEDS: buPROPion XL 150 MG TAB PO (09:01)
--- NOTE | 2021-02-27 10:10 | PT-IP ANOTE ---
Pt not seen for PT tx this morning, pt going over d/c papers with RN, RN states pt is due to leave in just a few minutes.
[2021-02-27 10:12] LABS: COVID19 -Nasal RAPID Negative (Negative)
--- NOTE | 2021-02-27 10:13 | PC.NURSE ---
Called to give report to rep at [facility] in [facility]. Left message asking for return call.
[2021-02-27 10:49] VITALS: O2SAT 96
--- NOTE | 2021-02-27 11:17 | CM.DPC ---
DCP/continued: Reviewed chart. Patient has been accepted at [facility] under Medicare with COVID waiver. Spoke with Dr. Huerta this AM. He will complete waiver and discharge patient. Placed call to Loni at [facility] she reports that transport has been arranged for merchandise pickup/receiving associate at approximately 11:00AM. Orders, PASRR, and waiver faxed to [facility]. CHROME WORKER received phone call from patient's daughter/Brooke? re: plan. Daughter continues to request that CM team attempt placement in [place]. CHROME WORKER met with both patient and spouse yesterday and both requesting patient stay in [facility]. Spoke again with them both this AM and they are completely in agreement for patient to go to [facility] under Medicare COVID waiver (which all facilities do not accept). Therefore, explained to daughter that current plan is for patient to d/c to [facility] per patient and spouse's request. RN/Sabi given number to call nursing report. Spouse brought in COVID vaccine information. Copy of vaccine made and faxed to [facility]. P: [facility] today. GHULAM Young
== END 2021-02-27 11:15 ==
LOC: ED 19:41 → AC 19:44
PROVIDERS: Admitting Provider Internal Medicine; Emergency Provider Emergency Medicine; Family Provider Family Medicine; PCP Family Medicine; Referring Provider Emergency Medicine; Visit Provider Family Medicine
DX: S82.302A Unspecified fracture of lower end of left tibia, initial encounter for closed fracture (principal); R33.9 Retention of urine, unspecified; L89.159 Pressure ulcer of sacral region, unspecified stage; M81.0 Age-related osteoporosis without current pathological fracture; W18.39XA Other fall on same level, initial encounter; Y92.009 Unspecified place in unspecified non-institutional (private) residence as the place of occurrence of the external cause; E03.9 Hypothyroidism, unspecified; I10 Essential (primary) hypertension; F41.9 Anxiety disorder, unspecified; Z20.822 Contact with and (suspected) exposure to COVID-19
CPT/HCPCS: 29580; 36415; 73610; 73700; 80048; 85025; 87635; 94760; 96360; 96361; 96372; 97110; 97162; 97166; 97530; 99217; 99219; 99225; 99283; 99284; C9803; G0378; J1650